=== PATIENT | female | born 1945 | race Caucasian/White ===

== ENCOUNTER 2020-10-24 15:03 | Outpatient (REF) | payer MEDICARE, SELFPAY ==
--- NOTE | ~2020-10-24 | MM_ITS ---
EXAMINATION: MM DIAGNOSTIC DIGITAL BREAST TOMOSYNTHESIS, BILATERAL US DIAGNOSTIC ULTRASOUND BREAST, RIGHT CLINICAL INFORMATION: 75-year-old with soreness and palpable nodularity posterior lateral right breast. Lumpectomy for right breast cancer 08/18/2010. Due for yearly. COMPARISON: Mammography: 06/14/2019, 06/08/2018, 05/23/2017 TECHNIQUE: Digital breast tomosynthesis is performed in both the craniocaudal and mediolateral oblique views along with computer-aided detection (CAD). Synthesized 2D images are generated from the tomosynthesis. Additional exaggerated right CC x2 views are obtained. Symptom marker placed on right. Ultrasound right breast is targeted to the area of clinical concern outer right breast. Patient is able to point to area of concern at time of imaging. FINDINGS: There are scattered areas of fibroglandular density (ACR BI-RADS breast composition Category b). There are post therapy changes right breast with mild reduced breast size, mild stable scarring, surgical clips, and benign dystrophic calcification in the scar. Neither breast shows interval mass, developing density, or architectural abnormality. No abnormal calcifications. The axilla are unremarkable. Ultrasound right breast demonstrates no cystic or solid mass or architectural abnormality. No skin thickening or edema tracking in soft tissue planes. The lumpectomy site corresponds to the area of patient concern at time of real time ultrasound. Results are discussed with the patient at time of visit. Patient notes she has upcoming appointment next week with surgeon for further assessment. MM/MM tomosynthesis diagnostic BI IMPRESSION: 1. No mammographic evidence of malignancy or inflammatory changes. 2. Stable post therapy changes right breast. 3. Unremarkable targeted right breast ultrasound. ASSESSMENT: BI-RADS 2: Benign RECOMMENDATION: 1. Patient should be managed based on the clinical impression. Decision to proceed with biopsy should be based on clinical grounds and degree of clinical concern. 2. Otherwise, routine annual screening mammography. This patient's information was entered into a reminder system with a target due date for their next mammogram.
== END 2020-10-24 15:04 | disposition home or self-care (01) ==
LOC: HO.MAMMO 15:03
PROVIDERS: PCP Internal Medicine; Visit Provider Internal Medicine
DX: N64.4 Mastodynia (principal); N63.10 Unspecified lump in the right breast, unspecified quadrant
CPT/HCPCS: 76642; 77062; 77066

== ENCOUNTER → 2020-10-28 09:46 | Outpatient (BNVA) | payer MEDICARE, SELFPAY | PROVIDERS: PCP Internal Medicine; Referring Provider Internal Medicine; Visit Provider Surgery | DX: C50.911 Malignant neoplasm of unspecified site of right female breast (principal) | CPT/HCPCS: 99212 ==

== ENCOUNTER 2021-03-11 09:41 | Outpatient (REF) | payer MEDICARE, SELFPAY ==
[2021-03-11 13:34] LABS: MANUAL DIFF FLAG NO
[2021-03-11 14:06] LABS: Basophils Absolute Auto 0.1 X10*3/uL (0.0-0.2); Basophils Percent Auto 1.4 % (0-2); Eosinophils Absolute Auto 0.2 X10*3/uL (0.0-0.4); Eosinophils Percent Auto 3.5 % (0-4); Hematocrit 45.9 % (37-47); Hemoglobin 14.8 g/dl (12.0-16.0); Imm Gran Abs Auto 0.01 X10*3/uL (0.00-0.03); Imm Gran Pct Auto 0.2 % (0.0-0.4); Lymphocytes Absolute Auto 1.5 X10*3/uL (1.2-4.9); Lymphocytes Percent Auto 29.5 % (20-40); Mean Corpuscular HGB Conc 32.2 g/dl (31.0-35.0); Mean Corpuscular Hemoglobin 29.4 pg (27.0-33.0); Mean Corpuscular Volume 91.3 fL (80-98); Mean Platelet Volume 9.9 fL (9.4-12.3); Monocytes Absolute Auto 0.6 X10*3/uL (0.1-1.2); Monocytes Percent Auto 11.9 % (2-11); Neutrophils Absolute Auto 2.7 X10*3/uL (2.0-8.3); Neutrophils Percent Auto 53.5 % (45-73); Platelet Count 235 X10*3/uL (160-400); Red Blood Count 5.03 X10*6/uL (4.20-5.50); Red Cell Distribution Width 13.5 % (11.0-16.0); White Blood Count 5.1 X10*3/uL (4.8-10.8)
[2021-03-11 14:31] LABS: Alanine Aminotransferase 10 U/L (0-31); Albumin Level 3.8 g/dL (3.5-5.0); Alkaline Phosphatase 65 U/L (39-117); Anion Gap 13 (12-20); Aspartate Amino Transferase 16 U/L (5-31); Bilirubin Total 0.6 mg/dL (0.0-1.0); Blood Urea Nitrogen 11 mg/dL (9-16); Calcium 8.4 mg/dL (8.4-10.2); Carbon Dioxide 27 mmol/L (22-29); Chloride 109 mmol/L (96-108); Cholesterol 205 mg/dL; Estimated Glomerular Filt Rate > 60; Glucose Fasting 80 mg/dL (60-99); HDL Cholesterol 73 mg/dL; LDL Cholesterol Calculated 115 mg/dl; Potassium 4.7 mmol/L (3.3-5.1); Sodium 144 mmol/L (135-145); Total Protein 6.5 g/dL (6.5-8.0); Triglycerides 89 mg/dL
== END 2021-03-11 09:42 | disposition home or self-care (01) ==
LOC: HO.10HDL 09:41
PROVIDERS: Visit Provider Internal Medicine
DX: J44.9 Chronic obstructive pulmonary disease, unspecified (principal); M85.80 Other specified disorders of bone density and structure, unspecified site; Z85.3 Personal history of malignant neoplasm of breast
CPT/HCPCS: 36415; 80053; 80061; 85025

== ENCOUNTER 2021-06-04 10:52 | Outpatient (REF) | payer MEDICARE, SELFPAY ==
--- NOTE | ~2021-06-04 | MM_ITS ---
EXAMINATION: BONE DENSITOMETRY CLINICAL INDICATION: Osteopenia. COMPARISON: Previous BD dated 11/15/2017 and baseline BD dated 10/03/2009. TECHNIQUE: Using a [employer] DXA System (software version: 13.1) manufactured by [employer], dual-energy x-ray absorptiometry was performed of the lumbar spine and left hip. The images are of good technical quality. Summary results are attached. FINDINGS: AP SPINE L1-L4: Current: BMD 0.983 g/cm2, Z-score -0.1, T-score -1.6, osteopenia, 2.8% increase from previous, 3.2% decrease from baseline (<5% change is not significant). Prior: BMD 0.956 g/cm2. Baseline: BMD 1.015 g/cm2. LEFT FEMUR, NECK: Current: BMD 0.766 g/cm2, Z-score -0.1, T-score -2.0, osteopenia. Prior: BMD 0.779 g/cm2. Baseline: BMD 0.855 g/cm2. LEFT FEMUR, TOTAL: Current: BMD 0.866 g/cm2, Z-score 0.6, T-score -1.1, osteopenia, 1.1% increase from previous, 8.6% decrease from baseline (<5% change is not significant). Prior: BMD 0.857 g/cm2. Baseline: BMD 0.947 g/cm2. IDENTIFIED RISK FACTORS: Low calcium intake, menopause. HISTORY OF FRACTURE: None listed. MEDICATIONS: Calcium supplements or multivitamin, vitamin D. MM/XR DEXA axial skeleton IMPRESSION: 1. DIAGNOSIS: Osteopenia based on the lowest T-score value of -2.0 in the femoral neck applying World Health Organization criteria. 2. 10-YEAR FRACTURE RISK PREDICTION, FRAX: Major osteoporotic fracture (clinical spine, forearm, hip or shoulder) 14.5%. Hip fracture 4.0%. 3. Treatment Recommendations: NOF guidelines recommend consideration for treatment in postmenopausal women and men age 50 and older presenting with the following: -A hip or vertebral (clinical or morphometric) fracture. -T-score less than or equal to -2.5 at the femoral neck or spine after appropriate evaluation to exclude secondary causes. -Low bone mass at the hip or spine and a 10-year fracture probability by FRAX of greater than or equal to 3% for hip fracture or greater than or equal to 20% for major osteoporotic fracture based on the [place] adapted WHO algorithm. 4. Other Recommendations: All treatment decisions require clinical judgment and consideration of individual patient factors, including patient preferences, comorbidities, previous drug use, risk factors not captured in the FRAX model (e.g. frailty, falls, vitamin D deficiency, increased bone turnover, interval significant decline in bone density) and possible under or overestimation of fracture risk by FRAX. Additional medical evaluation for secondary cause of low bone mineral density may be appropriate. FUTURE SCAN RECOMMENDATION: People with diagnosed cases of osteoporosis or at high risk for fracture should have regular bone mineral density tests. For patients eligible for Medicare, routine testing is allowed once every 2 years. The testing frequency can be increased to one year for patients who have rapidly progressing disease, those who are receiving or discontinuing medical therapy to restore bone mass, or have additional risk factors.
== END 2021-06-04 10:53 | disposition home or self-care (01) ==
LOC: HO.MAMMO 10:52
PROVIDERS: PCP Internal Medicine; Visit Provider Internal Medicine Medical Oncology
DX: Z13.820 Encounter for screening for osteoporosis (principal); M85.80 Other specified disorders of bone density and structure, unspecified site; Z78.0 Asymptomatic menopausal state; Z79.899 Other long term (current) drug therapy
CPT/HCPCS: 77080

== ENCOUNTER 2021-07-27 16:57 | Emergency (ER) | payer OTHER, MEDICARE, SELFPAY ==
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
--- NOTE | 2021-07-27 17:12 | ECG_ITS ---
Test Reason : CHEST PAIN Blood Pressure : / mmHG Vent. Rate : 088 BPM Atrial Rate : 088 BPM P-R Int : 130 ms QRS Dur : 068 ms QT Int : 368 ms P-R-T Axes : 036 -43 013 degrees QTc Int : 445 ms Normal sinus rhythm Left axis deviation Nonspecific ST abnormality Abnormal ECG When compared with ECG of 15-JUL-2011 18:40, No significant change was found Referred By: Myrna Beckwith Electronically Signed By:DANIEL FIELDS
[2021-07-27] MEDS: ondansetron HCL 4 MG/2 ML VIAL IVPUSH (18:00)
[2021-07-27 18:01] LABS: MANUAL DIFF FLAG NO
[2021-07-27] MEDS: Morphine Sulfate 2 MG/ML CARTRIDGE IVPUSH (18:01)
[2021-07-27 18:03] VITALS: BP 153/92; PULSE 90; RESP 18; O2SAT 93; BMI 27.4
[2021-07-27 18:03] LABS: Basophils Percent Auto 0.5 % (0-2); Eosinophils Absolute Auto 0.1 X10*3/uL (0.0-0.4); Eosinophils Percent Auto 1.5 % (0-4); Hematocrit 49.3 % (37.0-47.0); Hemoglobin 16.2 g/dl (12.0-16.0); Imm Gran Abs Auto 0.06 X10*3/uL (0.00-0.03); Imm Gran Pct Auto 0.7 % (0.0-0.4); Lymphocytes Absolute Auto 1.8 X10*3/uL (1.2-4.9); Lymphocytes Percent Auto 21.5 % (20-40); Mean Corpuscular HGB Conc 32.9 g/dl (31.0-35.0); Mean Corpuscular Hemoglobin 29.7 pg (27.0-33.0); Mean Corpuscular Volume 90.3 fL (80.0-98.0); Mean Platelet Volume 9.5 fL (9.4-12.3); Monocytes Absolute Auto 0.6 X10*3/uL (0.1-1.2); Monocytes Percent Auto 7.5 % (2-11); Neutrophils Absolute Auto 5.6 x10*3/uL (2.0-8.3); Neutrophils Percent Auto 68.3 % (45-73); Platelet Count 247 X10*3/uL (160-400); Red Blood Count 5.46 X10*6/uL (4.20-5.50); Red Cell Distribution Width 13.3 % (11.0-16.0); White Blood Count 8.2 X10*3/uL (4.8-10.8)
[2021-07-27 18:17] LABS: Alanine Aminotransferase 11 U/L (0-31); Albumin Level 3.9 g/dL (3.5-5.0); Alkaline Phosphatase 62 U/L (39-117); Anion Gap 12 (12-20); Aspartate Amino Transferase 19 U/L (5-31); Bilirubin Direct 0.2 mg/dL (0.0-0.5); Bilirubin Total 0.4 mg/dL (0.0-1.0); Blood Urea Nitrogen 11 mg/dL (9-16); Calcium 9.2 mg/dL (8.4-10.2); Carbon Dioxide 26 mmol/L (22-29); Chloride 108 mmol/L (96-108); Creatinine Clr Calc Pharmacy 59.5; Estimated Glomerular Filt Rate > 60; Glucose Random 104 mg/dL (60-115); Lipase 14 U/L (8-78); Magnesium 2.2 mg/dL (1.6-2.6); Sodium 142 mmol/L (135-145); Total Protein 7.3 g/dL (6.5-8.0)
[2021-07-27 18:21] LABS: Troponin-I High Sensitivity < 3.5 ng/L (<3.5-17.0)
[2021-07-27 20:13] LABS: Troponin-I High Sensitivity < 3.5 ng/L (<3.5-17.0)
[2021-07-27] MEDS: Lidocaine 4 % Patch ADH..PATCH 1 PATCH TRANSDERMA (20:24)
[2021-07-27 20:51] VITALS: BP 100/72; PULSE 40; RESP 18; O2SAT 91
[2021-07-27 20:54] VITALS: BP 83/51; PULSE 92; RESP 18
[2021-07-27 20:56] VITALS: BP 98/62; PULSE 86; RESP 18; O2SAT 96
--- NOTE | 2021-07-27 21:05 | PC.NURSE ---
upon getting pt up to the wheelchair for discharge pt felt weak and states she feels like she is going to pass out. vitals taken bp low sat dropped. 2l nc applied. pt given water and crackers due to receiving morphine earlier with last meal was breakfast.
[2021-07-27 21:07] VITALS: BP 130/76; PULSE 95; RESP 16; O2SAT 100
--- NOTE | 2021-07-27 21:10 | PC.NURSE ---
pt states she is feeling back to baseline. sat 97-99% on room air, bp 130/76 and pt chevy po crackers and gingerale.
[2021-07-27 21:14] VITALS: BP 136/84
== END 2021-07-27 21:24 | disposition home or self-care (01) ==
PROVIDERS: Emergency Provider Emergency Medicine
DX: S29.011A Strain of muscle and tendon of front wall of thorax, initial encounter (principal); V47.0XXA Car driver injured in collision with fixed or stationary object in nontraffic accident, initial encounter; W22.11XA Striking against or struck by driver side automobile airbag, initial encounter; Y93.89 Activity, other specified; Y92.414 Local residential or business street as the place of occurrence of the external cause; Y99.9 Unspecified external cause status
CPT/HCPCS: 36415; 71250; 80048; 80076; 83690; 83735; 84484; 85025; 93005; 96374; 96375; 99283; 99284; J2270; J2405

== ENCOUNTER 2021-10-26 12:09 | Outpatient (REF) | payer MEDICARE, SELFPAY ==
--- NOTE | ~2021-10-26 | US_ITS ---
EXAMINATION: US VENOUS ULTRASOUND WITH DOPPLER LOWER EXTREMITY, LEFT CLINICAL INFORMATION: Left lower extremity edema COMPARISON: Ultrasound 07/16/2011 TECHNIQUE: Ultrasound of the deep veins is performed from the hip to the calf with compression sonography and color and pulse Doppler assessment. Spectral analysis with color-flow imaging is performed. FINDINGS: There is normal venous compression and respiratory variation and augmented flow. There is partially occlusive thrombus within the left popliteal vein and possibly the distal femoral vein. The visualized common femoral vein, proximal and mid superficial femoral vein, profunda femoral vein, and the trifurcation region shows no evidence of deep venous thrombosis. There is no significant popliteal fossa cyst. If the patient's symptoms persist, followup ultrasound in 5 days 7 days might be of value to exclude proximal propagation from a non-visualized calf vein. US/US venous duplex LE LT IMPRESSION: Partially occlusive thrombus within the popliteal vein and distal portion of the superficial femoral vein. The appearance is suggestive of chronic thrombus, though it is difficult to exclude an acute thrombus. Discussed results by telephone with Dr. Corona at 1330 hours. Per our discussion the patient does have a prior history of DVT and this could certainly represent chronic changes.
[2021-10-26 13:47] LABS: MANUAL DIFF FLAG NO
[2021-10-26 14:05] LABS: Basophils Percent Auto 0.6 % (0-2); Eosinophils Absolute Auto 0.1 X10*3/uL (0.0-0.4); Eosinophils Percent Auto 1.1 % (0-4); Hematocrit 46.5 % (37.0-47.0); Imm Gran Abs Auto 0.01 X10*3/uL (0.00-0.03); Imm Gran Pct Auto 0.2 % (0.0-0.4); Lymphocytes Absolute Auto 1.4 X10*3/uL (1.2-4.9); Lymphocytes Percent Auto 25.7 % (20-40); Mean Corpuscular HGB Conc 32.3 g/dl (31.0-35.0); Mean Corpuscular Hemoglobin 29.4 pg (27.0-33.0); Mean Platelet Volume 9.3 fL (9.4-12.3); Monocytes Absolute Auto 0.5 X10*3/uL (0.1-1.2); Monocytes Percent Auto 9.6 % (2-11); Neutrophils Absolute Auto 3.4 x10*3/uL (2.0-8.3); Neutrophils Percent Auto 62.8 % (45-73); Platelet Count 237 X10*3/uL (160-400); Red Blood Count 5.11 X10*6/uL (4.20-5.50); Red Cell Distribution Width 13.7 % (11.0-16.0); White Blood Count 5.4 X10*3/uL (4.8-10.8)
[2021-10-26 14:31] LABS: B Type Natriuretic Peptide 21 pg/mL (<100); D Dimer High Sensitivity 185 NG/ML
[2021-10-26 14:41] LABS: Alanine Aminotransferase 12 U/L (0-31); Albumin Level 3.9 g/dL (3.5-5.0); Alkaline Phosphatase 59 U/L (39-117); Anion Gap 12 (12-20); Aspartate Amino Transferase 20 U/L (5-31); Bilirubin Total 0.6 mg/dL (0.0-1.0); Blood Urea Nitrogen 14 mg/dL (9-16); C Reactive Protein 0.21 mg/dL (< or = 0.50); Calcium 9.7 mg/dL (8.4-10.2); Carbon Dioxide 26 mmol/L (22-29); Chloride 109 mmol/L (96-108); Estimated Glomerular Filt Rate 58; Glucose Random 93 mg/dL (60-115); Sodium 142 mmol/L (135-145); Total Protein 6.9 g/dL (6.5-8.0)
== END 2021-10-26 12:10 | disposition home or self-care (01) ==
LOC: HO.LAB 12:09
PROVIDERS: Visit Provider Internal Medicine
DX: R22.41 Localized swelling, mass and lump, right lower limb (principal); R06.02 Shortness of breath
CPT/HCPCS: 36415; 80053; 83880; 85025; 85379; 86140; 93971

== ENCOUNTER 2021-11-02 16:10 | Outpatient (REF) | payer MEDICARE, SELFPAY ==
--- NOTE | ~2021-11-02 | MM_ITS ---
EXAMINATION: MM SCREENING DIGITAL BREAST TOMOSYNTHESIS, BILATERAL CLINICAL INFORMATION: Screening. Asymptomatic. History right breast cancer status post lumpectomy, 08/18/2010. Due for yearly. COMPARISON: Mammography: 10/24/2020, 06/14/2019, 06/08/2018, 05/23/2017, 05/17/2016, 05/15/2015 TECHNIQUE: Digital breast tomosynthesis is performed in both the craniocaudal and mediolateral oblique views along with computer-aided detection (CAD). Synthesized 2D images are generated from the tomosynthesis. Additional exaggerated right CC view is provided. FINDINGS: There are scattered areas of fibroglandular density (ACR BI-RADS breast composition Category b). Right breast post therapy changes are again seen with mild reduced breast size and old scarring, surgical clips, and benign dystrophic calcification in the scar posterior upper outer quadrant. Neither breast shows interval mass or architectural abnormality or abnormal calcifications. The axilla are unremarkable. No significant changes. MM/MM tomosynthesis screening BI IMPRESSION: -No mammographic evidence of malignancy. -Post therapy changes right breast. ASSESSMENT: BI-RADS 2: Benign RECOMMENDATION: Routine annual mammography screening. This patient's information was entered into a reminder system with a target due date for their next mammogram.
== END 2021-11-02 16:11 | disposition home or self-care (01) ==
LOC: HO.MAMMO 16:10
PROVIDERS: Visit Provider Internal Medicine
DX: Z12.31 Encounter for screening mammogram for malignant neoplasm of breast (principal)
CPT/HCPCS: 77063; 77067

== ENCOUNTER → 2021-12-03 08:54 | Outpatient (BNVA) | payer MEDICARE, SELFPAY | PROVIDERS: PCP Internal Medicine; Visit Provider Surgery | DX: C50.911 Malignant neoplasm of unspecified site of right female breast (principal); Z79.811 Long term (current) use of aromatase inhibitors; Z17.0 Estrogen receptor positive status [ER+]; Z86.711 Personal history of pulmonary embolism | CPT/HCPCS: 99212 ==

== ENCOUNTER 2021-12-10 07:41 | Outpatient (REF) | payer MEDICARE, SELFPAY ==
--- NOTE | 2021-12-10 | PFT_ITS ---
INDICATION: History of pulmonary emboli. SPIROMETRY: FEV1 to FVC of 62% with an FEV1 of 1.99 L, which is 88% predicted and an FVC of 3.22 L, which is 107% predicted. No significant response to bronchodilators noted. Maximum voluntary ventilation 75% predicted. LUNG VOLUMES: Total lung capacity 103% predicted. DIFFUSION CAPACITY: DLCO 36% predicted. COMPARISONS: None. INTERPRETATION: There is an obstructive ventilatory defect consistent with mild COPD. No significant response to bronchodilators noted. There is some mild decrease in the maximum voluntary ventilation secondary to likely deconditioning. Lung volumes are within normal limits, although the patient does have severe diffusion impairment. This could be secondary to underlying pulmonary vascular disease after the pulmonary emboli, although other parenchymal lung conditions such as emphysema may be contributing. Clinical correlation warranted. MD TWYLA Tesfaye/[employer] / [id number]
== END 2021-12-10 07:42 | disposition home or self-care (01) ==
LOC: HO.RESP 07:41
PROVIDERS: PCP Internal Medicine; Visit Provider Internal Medicine
DX: Z86.711 Personal history of pulmonary embolism (principal); Z87.891 Personal history of nicotine dependence
CPT/HCPCS: 94060; 94727; 94729

== ENCOUNTER → 2022-02-08 13:47 | Outpatient (BNVA) | payer MEDICARE, SELFPAY | PROVIDERS: PCP Internal Medicine; Visit Provider Hospitalist | DX: J43.2 Centrilobular emphysema (principal); R91.8 Other nonspecific abnormal finding of lung field; R06.00 Dyspnea, unspecified; R09.02 Hypoxemia | CPT/HCPCS: 94618; 99202 ==

== ENCOUNTER → 2022-04-29 10:40 | Outpatient (BNV) | payer MEDICARE, SELFPAY | PROVIDERS: PCP Internal Medicine; Visit Provider Internal Medicine Medical Oncology | DX: Z85.3 Personal history of malignant neoplasm of breast (principal) | CPT/HCPCS: 99213; 99214 ==

== ENCOUNTER → 2022-05-11 13:12 | Outpatient (BNVA) | payer MEDICARE, SELFPAY | PROVIDERS: PCP Internal Medicine; Visit Provider Hospitalist | DX: Z23 Encounter for immunization (principal); J43.2 Centrilobular emphysema; R91.8 Other nonspecific abnormal finding of lung field; R06.00 Dyspnea, unspecified; R09.02 Hypoxemia | CPT/HCPCS: 90471; 90677; 99212 ==

== ENCOUNTER 2022-05-17 11:39 | Outpatient (REF) | payer MEDICARE, SELFPAY ==
[2022-05-17 13:53] LABS: MANUAL DIFF FLAG NO
[2022-05-17 14:02] LABS: Basophils Absolute Auto 0.1 X10*3/uL (0.0-0.2); Eosinophils Absolute Auto 0.2 X10*3/uL (0.0-0.4); Eosinophils Percent Auto 2.6 % (0-4); Hematocrit 46.7 % (37.0-47.0); Imm Gran Abs Auto 0.03 X10*3/uL (0.00-0.03); Imm Gran Pct Auto 0.5 % (0.0-0.4); Lymphocytes Absolute Auto 1.5 X10*3/uL (1.2-4.9); Lymphocytes Percent Auto 24.8 % (20-40); Mean Corpuscular HGB Conc 32.1 g/dl (31.0-35.0); Mean Corpuscular Hemoglobin 29.4 pg (27.0-33.0); Mean Corpuscular Volume 91.6 fL (80.0-98.0); Mean Platelet Volume 10.3 fL (9.4-12.3); Monocytes Absolute Auto 0.7 X10*3/uL (0.1-1.2); Monocytes Percent Auto 11.8 % (2-11); Neutrophils Absolute Auto 3.5 x10*3/uL (2.0-8.3); Neutrophils Percent Auto 59.3 % (45-73); Platelet Count 248 X10*3/uL (160-400); Red Cell Distribution Width 13.4 % (11.0-16.0); White Blood Count 5.8 X10*3/uL (4.8-10.8)
[2022-05-17 14:31] LABS: Alanine Aminotransferase 14 U/L (0-31); Albumin Level 3.8 g/dL (3.5-5.0); Alkaline Phosphatase 62 U/L (39-117); Anion Gap 11 (12-20); Aspartate Amino Transferase 21 U/L (5-31); Bilirubin Total 0.6 mg/dL (0.0-1.0); Blood Urea Nitrogen 15 mg/dL (9-16); Calcium 9.6 mg/dL (8.4-10.2); Carbon Dioxide 29 mmol/L (22-29); Chloride 105 mmol/L (96-108); Cholesterol 196 mg/dL; Estimated Glomerular Filt Rate > 60; Glucose Fasting 84 mg/dL (60-99); HDL Cholesterol 67 mg/dL; LDL Cholesterol Calculated 109 mg/dl; Potassium 4.5 mmol/L (3.3-5.1); Sodium 140 mmol/L (135-145); Total Protein 6.8 g/dL (6.5-8.0); Triglycerides 102 mg/dL
== END 2022-05-17 11:40 | disposition home or self-care (01) ==
LOC: HO.10HDL 11:39
PROVIDERS: Visit Provider Internal Medicine
DX: Z00.00 Encounter for general adult medical examination without abnormal findings (principal)
CPT/HCPCS: 36415; 80053; 80061; 85025

== ENCOUNTER → 2022-09-01 11:01 | Outpatient (BNVA) | payer MEDICARE, SELFPAY | PROVIDERS: PCP Internal Medicine; Visit Provider Hospitalist | DX: J43.2 Centrilobular emphysema (principal); R91.8 Other nonspecific abnormal finding of lung field; R06.00 Dyspnea, unspecified; R09.02 Hypoxemia | CPT/HCPCS: 99212 ==

== ENCOUNTER 2022-09-15 07:47 | Outpatient (REF) | payer MEDICARE, SELFPAY ==
--- NOTE | ~2022-09-15 | CT_ITS ---
EXAMINATION: CT CHEST WITHOUT CONTRAST CLINICAL INFORMATION: Pulmonary nodule COMPARISON: 07/27/2021 TECHNIQUE: Multidetector volumetric CT imaging of the chest was done. Axial MIP volume rendering provided. Sagittal and coronal reformatted images were obtained. This CT examination was performed using dose optimization techniques as appropriate, variously including the following: *Automated exposure control *Adjustment of mA and/or kV according to patient size (this includes techniques or standardized protocols for targeted exams where dose is matched to indication/reason for exam; i.e. extremities or head) *Use of iterative reconstruction technique DLP: 121.63 mGy-cm FINDINGS: LUNGS: Moderate background emphysema. Right lower lobe endobronchial 4 mm nodule is unchanged (5:503). Central airways are patent. No new or enlarging pulmonary nodule. Bilateral calcified nodules are unchanged. MEDIASTINUM: No mediastinal adenopathy. Lack of IV contrast as well as for hilar adenopathy. PLEURA: There is no pleural effusion. No pleural mass or thickening. AXILLA: No lymphadenopathy. UPPER ABDOMEN: Partially visualized benign-appearing left renal cyst. OSSEOUS STRUCTURES/SOFT TISSUES: Degenerative changes of the spine. Postsurgical changes of the right breast consistent with prior lumpectomy. CT/CT chest wo IV con IMPRESSION: Right lower lobe endobronchial 4 mm nodule is unchanged. No new or enlarging pulmonary nodule. Follow-up per oncologic protocol given breast cancer history.
== END 2022-09-15 07:48 | disposition home or self-care (01) ==
LOC: HO.CT 07:47
PROVIDERS: Visit Provider Hospitalist
DX: R91.8 Other nonspecific abnormal finding of lung field (principal)
CPT/HCPCS: 71250

== ENCOUNTER 2022-11-15 12:29 | Outpatient (REF) | payer MEDICARE, SELFPAY ==
--- NOTE | ~2022-11-15 | MM_ITS ---
EXAMINATION: MM SCREENING DIGITAL BREAST TOMOSYNTHESIS, BILATERAL CLINICAL INFORMATION: Screening. Asymptomatic. History right breast cancer status post lumpectomy, 2010. COMPARISON: Mammography: 11/02/2021, 10/24/2020, 06/14/2019 TECHNIQUE: Digital breast tomosynthesis is performed in both the craniocaudal and mediolateral oblique views along with computer-aided detection (CAD). Synthesized 2D images are generated from the tomosynthesis. FINDINGS: There are scattered areas of fibroglandular density (ACR BI-RADS breast composition Category b). There are no significant masses, abnormal calcifications, or other abnormalities. Parenchymal pattern is similar to prior studies and there is no developing density or interval architectural abnormality. The axilla are unremarkable. Right breast post therapy changes are similar to prior studies with reduced breast size, surgical clips, scarring, and benign dystrophic calcification. MM/MM tomosynthesis screening BI IMPRESSION: No mammographic evidence of malignancy. ASSESSMENT: BI-RADS 2: Benign RECOMMENDATION: Routine annual mammography screening. This patient's information was entered into a reminder system with a target due date for their next mammogram.
== END 2022-11-15 12:30 | disposition home or self-care (01) ==
LOC: HO.MAMMO 12:29
PROVIDERS: PCP Internal Medicine; Visit Provider Internal Medicine
DX: Z12.31 Encounter for screening mammogram for malignant neoplasm of breast (principal)
CPT/HCPCS: 77063; 77067

== ENCOUNTER → 2022-12-02 10:37 | Outpatient (BNVA) | payer MEDICARE, SELFPAY | PROVIDERS: PCP Internal Medicine; Visit Provider Surgery | DX: C50.911 Malignant neoplasm of unspecified site of right female breast (principal) | CPT/HCPCS: 99212 ==

== ENCOUNTER 2022-12-20 12:32 | Outpatient (REF) | payer MEDICARE, SELFPAY ==
--- NOTE | ~2022-12-20 | XR_ITS ---
EXAMINATION: XR SINUSES CLINICAL INFORMATION: Headache, sinus congestion COMPARISON: None available. TECHNIQUE: 5 views of the sinuses were obtained. FINDINGS: No gross air-fluid levels identified in the maxillary and frontal sinuses.. Leftward deviation of the nasal septum. Hazy opacities in the region of the nasal turbinates and ethmoid. XR/XR sinus min 3V IMPRESSION: Hazy opacities in the region of the nasal turbinates and ethmoid. CT scan of the paranasal sinuses is strongly recommended as this examination is much more sensitive for detection of pathology.
--- NOTE | ~2022-12-20 | XR_ITS ---
EXAMINATION: XR CHEST CLINICAL INFORMATION: Chest pain COMPARISON: CT chest 09/15/2022. X-ray chest 11/22/2008. TECHNIQUE: 2 views of the chest were obtained. FINDINGS: There is no gross pneumothorax. Heart size is normal. Lungs are well-inflated. No pleural effusion. No new focal consolidation to suggest pneumonia. Thoracic kyphosis with multilevel degenerative changes. XR/XR chest 2V IMPRESSION: No evidence of pneumonia.
[2022-12-20 14:06] LABS: MANUAL DIFF FLAG NO
[2022-12-20 14:14] LABS: Basophils Absolute Auto 0.1 X10*3/uL (0.0-0.2); Basophils Percent Auto 0.6 % (0-2); Eosinophils Absolute Auto 0.4 X10*3/uL (0.0-0.4); Eosinophils Percent Auto 3.8 % (0-4); Hematocrit 46.1 % (37.0-47.0); Hemoglobin 14.9 g/dl (12.0-16.0); Imm Gran Abs Auto 0.05 X10*3/uL (0.00-0.03); Imm Gran Pct Auto 0.5 % (0.0-0.4); Lymphocytes Absolute Auto 1.3 X10*3/uL (1.2-4.9); Lymphocytes Percent Auto 12.1 % (20-40); Mean Corpuscular HGB Conc 32.3 g/dl (31.0-35.0); Mean Corpuscular Hemoglobin 29.2 pg (27.0-33.0); Mean Corpuscular Volume 90.2 fL (80.0-98.0); Mean Platelet Volume 9.9 fL (9.4-12.3); Monocytes Absolute Auto 1.1 X10*3/uL (0.1-1.2); Monocytes Percent Auto 10.2 % (2-11); Neutrophils Absolute Auto 7.6 x10*3/uL (2.0-8.3); Neutrophils Percent Auto 72.8 % (45-73); Platelet Count 213 X10*3/uL (160-400); Red Blood Count 5.11 X10*6/uL (4.20-5.50); Red Cell Distribution Width 13.7 % (11.0-16.0); White Blood Count 10.5 X10*3/uL (4.8-10.8)
[2022-12-20 14:35] LABS: Alanine Aminotransferase 10 U/L (0-31); Albumin Level 3.8 g/dL (3.5-5.0); Alkaline Phosphatase 60 U/L (39-117); Anion Gap 13 (12-20); Aspartate Amino Transferase 16 U/L (5-31); Bilirubin Total 0.6 mg/dL (0.0-1.0); Blood Urea Nitrogen 13 mg/dL (9-16); C Reactive Protein 1.96 mg/dL (< or = 0.50); Calcium 9.7 mg/dL (8.4-10.2); Carbon Dioxide 25 mmol/L (22-29); Chloride 107 mmol/L (96-108); Estimated Glomerular Filt Rate > 60; Glucose Random 98 mg/dL (60-115); Potassium 3.7 mmol/L (3.3-5.1); Sodium 141 mmol/L (135-145)
[2022-12-20 14:53] LABS: Free T4 (Free Thyroxine) 0.98 ng/dL (0.71-1.85)
[2022-12-20 15:02] LABS: Erythrocyte Sedimentation Rate 10 MM/HR (0-20)
== END 2022-12-20 12:33 | disposition home or self-care (01) ==
LOC: HO.10HDL 12:32
PROVIDERS: PCP Internal Medicine; Visit Provider Internal Medicine
DX: R51.9 Headache, unspecified (principal); R09.81 Nasal congestion; J44.9 Chronic obstructive pulmonary disease, unspecified; R00.0 Tachycardia, unspecified; M54.2 Cervicalgia
CPT/HCPCS: 36415; 70220; 71046; 80053; 84439; 85025; 85652; 86140

== ENCOUNTER 2022-12-22 16:09 | Emergency (ER) | payer MEDICARE, SELFPAY ==
--- NOTE | ~2022-12-22 | CT_ITS ---
EXAMINATION: CT ANGIOGRAM OF THE CHEST WITH AND WITHOUT CONTRAST (CT PULMONARY ANGIOGRAM FOR PE) CLINICAL INFORMATION: Reason for Exam SOB, tachycardia, hx PE COMPARISON: None available. TECHNIQUE: Prior to contrast administration, noncontrast localization images were obtained. Subsequently, multidetector volumetric imaging was performed from the thoracic inlet to below the diaphragms following the administration of 80 mL Omnipaque 350 intravenous contrast. No contrast reaction reported Sagittal, coronal, and MIP oblique sagittal reformatted images were obtained on the CT workstation, uploaded to PACS, and reviewed. This CT examination was performed using dose optimization techniques as appropriate, variously including the following: *Automated exposure control *Adjustment of mA and/or kV according to patient size (this includes techniques or standardized protocols for targeted exams where dose is matched to indication/reason for exam; i.e. extremities or head) *Use of iterative reconstruction technique Total exam dose-length product 237 mGy-cm FINDINGS: QUALITY OF STUDY/CONTRAST BOLUS: Satisfactory. PULMONARY ARTERIES: No pulmonary emboli. THORACIC AORTA: No aneurysm. LUNG: The lungs are hyperinflated with patchy opacity left lower lobe superior segment question infiltrate. There is dependent atelectatic changes along the posterior basal segment of left lower lobe. No pulmonary nodule, mass or groundglass density seen.. PLEURA: Minimal left posterior pleural thickening seen. No pleural effusion or calcified pleural plaques. MEDIASTINUM: Normal heart size. No pericardial effusion. No hilar or mediastinal lymphadenopathy. No evidence of septal bowing or right heart strain. CORONARY ARTERY CALCIFICATION: Mild coronary artery calcifications are noted. CHEST WALL/AXILLA: No axillary or internal mammary lymphadenopathy. OSSEOUS STRUCTURES: There is normal thoracic kyphosis. The vertebral heights, alignment and disc heights are normal. No visible acute fracture, dislocation or subluxation seen. There is mild ventral spondylosis. There is sclerotic lesion density T3 vertebra likely bone island. UPPER ABDOMEN: Visualized liver, spleen, pancreas and bilateral adrenal glands are unremarkable. There is a left reginald pelvic cyst seen. Partially visualized gallbladder and the pancreas is unremarkable. No reflux of contrast into the hepatic veins to suggest elevated right heart pressures. CT/CT angio chest PE protocol IMPRESSION: 1. No evidence of PE. 2. No evidence of aortic aneurysm. 3. Hyperinflated lungs with patchy opacity left lower lobe superior segment question infiltrate. 4. VTE: negative.
--- NOTE | ~2022-12-22 | XR_ITS ---
EXAMINATION: XR CHEST CLINICAL INFORMATION: Dyspnea. COMPARISON: 12/20/2022 chest radiographs. TECHNIQUE: 2 views of the chest were obtained. FINDINGS: The lungs are clear. There are no pleural effusions. The heart and mediastinal structures are unremarkable. Increased thoracic kyphosis is seen with normal spinal alignment. The soft tissues are unremarkable. XR/XR chest 2V IMPRESSION: No acute cardiopulmonary process.
[2022-12-22 16:12] VITALS: BP 196/98; PULSE 120; RESP 18; TEMP 36.8; O2SAT 96; BMI 26.9
--- NOTE | 2022-12-22 16:13 | ED.GENADULT ---
HPI - General Adult General Chief complaint: General Medical Stated complaint: Sent by Doc. Time Seen by Provider: 12/22/22 17:18 Source: patient Mode of arrival: ambulatory History of Present Illness HPI narrative: This is a 77-year-old female who presents with a remote history of PE that was attributed to her use of tamoxifen for breast CA, she is also currently being treated with inhalers for chronic lung disease and a remote history of cigarette smoking and states that since Tuesday she has been experiencing a rapid heart rate that she identified because she checks her oxygenation throughout the day and also reports some shortness of breath and headache and an overall feeling of being unwell but denies any fever, chills, new cough, GI or symptoms. Related Data Home Medications Medication Instructions Recorded Confirmed calcium carbonate 500 mg-vitamin 1 tab PO DAILY 04/29/22 12/02/22 D3 3.125 mcg (125 unit) tablet Previous Rx's Medication Instructions Recorded umeclidinium 62.5 mcg-vilanterol 1 inh inhalation DAILY #60 ea 09/01/22 25 mcg/actuation powdr for inhalation (Anoro Ellipta) amoxicillin 875 mg-potassium 1 tab PO BID 7 days #14 tabs 12/22/22 clavulanate 125 mg tablet prednisone 50 mg tablet 50 mg PO DAILY 4 days #4 tabs 12/22/22 Allergies Allergy/AdvReac Type Severity Reaction Status Date / Time No Known Allergies Allergy Verified 12/22/22 16:16 Review of Systems Review of Systems: Pertinent positives and negatives as stated in HPI PMFSH Past Medical History Source: nursing notes reviewed Medical History Cataracts, bilateral COPD (chronic obstructive pulmonary disease) Dyspnea Hypoxia Invasive ductal carcinoma of right breast, stage 1 Pulmonary embolism Pulmonary nodules Retinal tear Surgical History History of eye surgery History of lumpectomy of right breast (07/2010) History of repair of retinal tear by laser photocoagulation Family History Family History Father No problems noted. Mother No problems noted. Paternal Aunt Lung cancer Maternal Uncle Lung cancer Maternal Aunt Lung cancer Son Colon cancer Social History Social History Household Members: None Housing: House Are you a primary coronary care unit nurse to a significant other at home: No Do you presently have visiting nurse or other home services: No Patient Tobacco Use Status: Former Tobacco user Tobacco use type: Cigarette Years Smoked: 25 Smoked in Last 30 Days: No Second Hand Smoke Exposure: No Use of substances other than those prescribed or required for medical reasons: No Advance Directives: Yes Advance Directives Information Provided: No Advance Directives on File: No service: No Current occupational status: retired Physical Exam ED Vital Signs: Vital Signs - 24 hr 12/22/22 16:12 12/22/22 17:10 12/22/22 18:52 Temperature 98.3 F 98.6 F 98.1 F Pulse Rate 120 H 107 H 95 Respiratory Rate 18 18 23 H Blood Pressure 196/98 H 150/97 H 154/88 H Pulse Oximetry 96 94 92 Oxygen Delivery Method Room Air Room Air Room Air 12/22/22 19:37 12/22/22 21:06 12/22/22 21:22 Temperature 98.1 F Pulse Rate 97 100 95 Respiratory Rate 16 17 18 Blood Pressure 135/76 130/74 Pulse Oximetry 95 95 Oxygen Delivery Method Room Air Room Air BMI result Body Mass Index 26.9 VITAL SIGNS: Reviewed. GENERAL: Well developed, well nourished, in no acute distress. HEAD: Normocephalic/atraumatic EYES: PERRLA, EOMI EARS: Ext canals without abnormality NOSE: Nares patent bilateral OROPHARYNX: no oral lesions noted, posterior pharynx clear NECK: Supple, no adenopathy LUNGS: Normal breath sounds. No adventitious sounds or accessory muscle use. SpO2<94> CARDIOVASCULAR: Sinus tachycardia and rhythm without noted murmurs, no JVD or lower extremity edema. ABDOMEN: Soft, non-tender, non-distended with bowel sounds. MUSCULOSKELETAL: No tenderness, deformities, or effusions noted on gross inspection. EXTREMITIES: No cyanosis, clubbing or edema. SKIN: Inspection of the skin reveals no rashes NEUROLOGIC: Alert and oriented x 4. Strength and sensation to light touch were grossly intact x 4. Course Course Course Narrative: RME: 77yo F w/PMHx COPD, PE, sent in from Dr. Anderson c/o generalized weakness, exertional dyspnea, palpitations, & elevated HR noted today in the office [employer] ranging 115-120's. Denies currently being on AC. keo CP Was seen in Dr. Pak office on Tuesday for HUGHES's, has sinus and CXR completed EKG, Labs, CXR Full HPI, ROS and PE to be performed by primary ED provider. Medications Administered Discontinued Medications Generic Name Dose Route Start Last Admin Trade Name Ady PRN Reason Stop Dose Admin Acetaminophen 975 mg 12/22/22 18:44 12/22/22 18:51 Acetaminophen 325 Mg Tablet PO 12/22/22 18:45 975 mg ONCE ONE Administration Albuterol/Ipratropium 3 ml 12/22/22 19:23 12/22/22 19:36 Albuterol/Iprat 2.5/0.5mg 3 Ml Ampul.Neb INHALE 12/22/22 19:24 3 ml ONCE ONE Administration Ibuprofen 400 mg 12/22/22 18:44 12/22/22 18:50 Ibuprofen 400 Mg Tablet PO 12/22/22 18:45 400 mg ONCE ONE Administration Iohexol 100 ml 12/22/22 20:28 12/22/22 20:28 Iohexol 350 Mg/Ml 100 Ml Infus..Btl IV 12/22/22 20:29 65 ml ONCE ONE Administration Methylprednisolone Sodium Succinate 125 mg 12/22/22 19:23 12/22/22 20:10 Methylprednisolone Sod Succ 125 Mg/2 Ml Vial IVPUSH 12/22/22 19:24 125 mg ONCE ONE Administration Medical Decision Making Medical Decision Making MDM Narrative: 77-year-old female with history and clinical presentation suggestive after review of investigations of possible exacerbation of underlying chronic lung disease especially as there is a noted elevation eosinophils but no bump in leukocytosis or left shift, also findings are not consistent with a pneumonia, COVID-19 testing was negative, EKG demonstrates sinus tachycardia with PACs which is not consistent with irregular rhythm arrhythmia. Will pursue D-dimer to rule out PE at this time due to remote history although felt to be very low possibility. I do not suspect cardiac ischemia as an etiology which is further corroborated by no evidence of troponin elevation and again no obvious or gross ischemic changes. Patient is otherwise not tachypneic and not febrile. On review of D-dimer it is noted to be elevated, patient continues to be tachycardic, will proceed with CT angio with PE protocol, also will treat patient with a DuoNeb as well as Solu-Medrol. On re-evaluation, D-dimers noted to be elevated, however CT angio for PE protocol negative for evidence of PE, patient is feeling better, will continue patient on short course of steroids as I suspect this may be in part due to her underlying chronic lung disease. In addition on the CT angio there was identification of lower lobe opacity suggestive of infiltrate and she will be discharged on a course of antibiotics. Patient states that she is feeling better and is ready to go home. Differential Diagnosis Please see the discussion above Admission/Observation Consideration of admission/observation: Escalation of care including admission/observation considered Lab Data Please see the discussion above 12/22/22 16:56 12/22/22 16:56 Labs: Lab Results 12/22/22 12/22/22 12/22/22 Range/Units 16:56 16:56 16:56 WBC 9.6 (4.8-10.8) X10*3/uL RBC 5.34 (4.20-5.50) X10*6/uL Hgb 15.6 (12.0-16.0) g/dl Hct 47.9 H (37.0-47.0) % MCV 89.7 (80.0-98.0) fL MCH 29.2 (27.0-33.0) pg MCHC 32.6 (31.0-35.0) g/dl RDW 13.7 (11.0-16.0) % Plt Count 249 (160-400) X10*3/uL MPV 9.4 (9.4-12.3) fL Immature Gran % (Auto) 0.4 (0.0-0.4) % Neut % (Auto) 69.8 (45-73) % Lymph % (Auto) 12.5 L (20-40) % [place] % (Auto) 11.2 H (2-11) % Eos % (Auto) 5.4 H (0-4) % Baso % (Auto) 0.7 (0-2) % Lymph # (Auto) 1.2 (1.2-4.9) X10*3/uL [place] # (Auto) 1.1 (0.1-1.2) X10*3/uL Eos # (Auto) 0.5 H (0.0-0.4) X10*3/uL Baso # (Auto) 0.1 (0.0-0.2) X10*3/uL Abs Immat Gran (auto) 0.04 H (0.00-0.03) X10*3/uL Absolute Neuts (auto) 6.7 (2.0-8.3) x10*3/uL Absolute Nucleated RBC 0.000 (0.0-0.012) X10*3/uL Nucleated RBC % (auto) 0.0 (0.0-0.2) /100WBC PT 11.4 (10.0-13.1) SEC INR 1.0 (0.9-1.1) D-Dimer High Sensitivty 482 NG/ML Sodium 135 (135-145) mmol/L Potassium 4.2 (3.3-5.1) mmol/L Chloride 105 (96-108) mmol/L Carbon Dioxide 23 (22-29) mmol/L Anion Gap 11 L (12-20) BUN 14 (9-16) mg/dL Creatinine 0.87 (0.5-1.4) mg/dL Estim Creat Clear Calc 56.4 Estimated GFR > 60 Random Glucose 102 (60-115) mg/dL Calcium 9.5 (8.4-10.2) mg/dL Magnesium 2.0 (1.6-2.6) mg/dL Total Bilirubin 0.6 (0.0-1.0) mg/dL Direct Bilirubin 0.2 (0.0-0.5) mg/dL AST 15 (5-31) U/L ALT 8 (0-31) U/L Alkaline Phosphatase 55 (39-117) U/L Troponin I High Sens (<3.5-17.0) ng/L B-Natriuretic Peptide (<100) pg/mL Total Protein 7.4 (6.5-8.0) g/dL Albumin 3.7 (3.5-5.0) g/dL TSH 1.55 (0.32-4.0) uIU/mL COVID-19 (PERLA) (Negative) COVID-19 Clin Com 12/22/22 12/22/22 12/22/22 Range/Units 16:56 16:56 17:55 WBC (4.8-10.8) X10*3/uL RBC (4.20-5.50) X10*6/uL Hgb (12.0-16.0) g/dl Hct (37.0-47.0) % MCV (80.0-98.0) fL MCH (27.0-33.0) pg MCHC (31.0-35.0) g/dl RDW (11.0-16.0) % Plt Count (160-400) X10*3/uL MPV (9.4-12.3) fL Immature Gran % (Auto) (0.0-0.4) % Neut % (Auto) (45-73) % Lymph % (Auto) (20-40) % [place] % (Auto) (2-11) % Eos % (Auto) (0-4) % Baso % (Auto) (0-2) % Lymph # (Auto) (1.2-4.9) X10*3/uL [place] # (Auto) (0.1-1.2) X10*3/uL Eos # (Auto) (0.0-0.4) X10*3/uL Baso # (Auto) (0.0-0.2) X10*3/uL Abs Immat Gran (auto) (0.00-0.03) X10*3/uL Absolute Neuts (auto) (2.0-8.3) x10*3/uL Absolute Nucleated RBC (0.0-0.012) X10*3/uL Nucleated RBC % (auto) (0.0-0.2) /100WBC PT (10.0-13.1) SEC INR (0.9-1.1) D-Dimer High Sensitivty NG/ML Sodium (135-145) mmol/L Potassium (3.3-5.1) mmol/L Chloride (96-108) mmol/L Carbon Dioxide (22-29) mmol/L Anion Gap (12-20) BUN (9-16) mg/dL Creatinine (0.5-1.4) mg/dL Estim Creat Clear Calc Estimated GFR Random Glucose (60-115) mg/dL Calcium (8.4-10.2) mg/dL Magnesium (1.6-2.6) mg/dL Total Bilirubin (0.0-1.0) mg/dL Direct Bilirubin (0.0-0.5) mg/dL AST (5-31) U/L ALT (0-31) U/L Alkaline Phosphatase (39-117) U/L Troponin I High Sens < 2.7 (<3.5-17.0) ng/L B-Natriuretic Peptide 15 (<100) pg/mL Total Protein (6.5-8.0) g/dL Albumin (3.5-5.0) g/dL TSH (0.32-4.0) uIU/mL COVID-19 (PERLA) Negative (Negative) COVID-19 Clin Com See Note Independent Interpretation I performed an independent interpretation of an: EKG Interpretation: Sinus tachycardia, HR-115, no STEMI, MN/QRS/QTC is within normal limits. Radiology Impression Radiologist Impression: No pneumonia on chest x-ray, discussion of CT angio findings above. External Record Review External record reviewed: Prior outpatient labs Chronic Conditions Patient?s care impacted by: Hypertension Discharge Plan Discharge Clinical Impression: COPD (chronic obstructive pulmonary disease), Pneumonia Patient Disposition: Home, Self-Care Instructions: COPD (Chronic Obstructive Pulmonary Disease) (ED), Pneumonia (ED) Additional Instructions: 1. Resume all home medications as prescribed. 2. Complete the short course of steroids as prescribed. I highly recommend using [id number]-[id number] acid control medication as the steroids will increased acid production. 3. Please complete the entire course of antibiotics as ordered. 4. Most importantly please follow-up with primary care provider within the next 1-2 days. Return to the ER for any worsening symptoms. Prescriptions: New amoxicillin-pot clavulanate 875-125 mg tablet 1 tab PO BID 7 Days Qty: 14 0RF prednisone 50 mg tablet 50 mg PO DAILY 4 Days Qty: 4 0RF No Action calcium carbonate-vitamin D3 [Calcium 500 + D (D3)] 500 mg-3.125 mcg (125 unit) Tablet 1 tab PO DAILY Anoro Ellipta 62.5-25 mcg/actuation blister with device 1 inh inhalation DAILY Qty: 60 11RF Referrals: Genaro Anderson MD [Primary Care Provider] - Interventions: ED Discharge Assessment Last Done: 12/22/22 21:03
--- NOTE | 2022-12-22 16:14 | ECG_ITS ---
Test Reason : tacardya Blood Pressure : / mmHG Vent. Rate : 115 BPM Atrial Rate : 115 BPM P-R Int : 124 ms QRS Dur : 068 ms QT Int : 322 ms P-R-T Axes : 049 -33 042 degrees QTc Int : 445 ms Sinus tachycardia with Premature supraventricular complexes Left axis deviation Abnormal ECG When compared with ECG of 27-JUL-2021 19:28, Premature supraventricular complexes are now Present Referred By: Blanche Guaman Electronically Signed By:Nathanael Abbott
--- NOTE | 2022-12-22 16:52 | MHC.EDTECH ---
PATIENT EKG TAKEN AND WAS READ BY PROVIDER .
--- NOTE | 2022-12-22 17:00 | MHC.EDTECH ---
PATIENT BLOOD DRAWN AND SENT TO LAB .
[2022-12-22 17:02] LABS: MANUAL DIFF FLAG NO
[2022-12-22 17:07] LABS: Basophils Absolute Auto 0.1 X10*3/uL (0.0-0.2); Basophils Percent Auto 0.7 % (0-2); Eosinophils Absolute Auto 0.5 X10*3/uL (0.0-0.4); Eosinophils Percent Auto 5.4 % (0-4); Hematocrit 47.9 % (37.0-47.0); Hemoglobin 15.6 g/dl (12.0-16.0); Imm Gran Abs Auto 0.04 X10*3/uL (0.00-0.03); Imm Gran Pct Auto 0.4 % (0.0-0.4); Lymphocytes Absolute Auto 1.2 X10*3/uL (1.2-4.9); Lymphocytes Percent Auto 12.5 % (20-40); Mean Corpuscular HGB Conc 32.6 g/dl (31.0-35.0); Mean Corpuscular Hemoglobin 29.2 pg (27.0-33.0); Mean Corpuscular Volume 89.7 fL (80.0-98.0); Mean Platelet Volume 9.4 fL (9.4-12.3); Monocytes Absolute Auto 1.1 X10*3/uL (0.1-1.2); Monocytes Percent Auto 11.2 % (2-11); Neutrophils Absolute Auto 6.7 x10*3/uL (2.0-8.3); Neutrophils Percent Auto 69.8 % (45-73); Platelet Count 249 X10*3/uL (160-400); Red Blood Count 5.34 X10*6/uL (4.20-5.50); Red Cell Distribution Width 13.7 % (11.0-16.0); White Blood Count 9.6 X10*3/uL (4.8-10.8)
[2022-12-22 17:10] VITALS: BP 150/97; PULSE 107; RESP 18; TEMP 37; O2SAT 94
[2022-12-22 17:14] LABS: Prothrombin Time 11.4 SEC (10.0-13.1)
[2022-12-22 17:26] LABS: B Type Natriuretic Peptide 15 pg/mL (<100)
[2022-12-22 17:27] LABS: Alanine Aminotransferase 8 U/L (0-31); Albumin Level 3.7 g/dL (3.5-5.0); Alkaline Phosphatase 55 U/L (39-117); Anion Gap 11 (12-20); Aspartate Amino Transferase 15 U/L (5-31); Bilirubin Direct 0.2 mg/dL (0.0-0.5); Bilirubin Total 0.6 mg/dL (0.0-1.0); Blood Urea Nitrogen 14 mg/dL (9-16); Calcium 9.5 mg/dL (8.4-10.2); Carbon Dioxide 23 mmol/L (22-29); Chloride 105 mmol/L (96-108); Creatinine Clr Calc Pharmacy 56.4; Estimated Glomerular Filt Rate > 60; Glucose Random 102 mg/dL (60-115); Potassium 4.2 mmol/L (3.3-5.1); Sodium 135 mmol/L (135-145); Total Protein 7.4 g/dL (6.5-8.0)
[2022-12-22 17:29] LABS: Troponin-I High Sensitivity < 2.7 ng/L (<3.5-17.0)
[2022-12-22 17:41] LABS: TSH reflex Free T4 1.55 uIU/mL (0.32-4.0)
[2022-12-22 18:15] LABS: COVID-19 Test Negative (Negative); IDNOW Serial# 6674DD1D
[2022-12-22] MEDS: Ibuprofen 400 MG TABLET PO (18:50)
[2022-12-22] MEDS: Acetaminophen 325 MG TABLET 975 MG PO (18:51)
[2022-12-22 18:52] VITALS: BP 154/88; PULSE 95; RESP 23; TEMP 36.7; O2SAT 92
[2022-12-22 18:59] LABS: D Dimer High Sensitivity 482 NG/ML
[2022-12-22] MEDS: Albuterol/Iprat 2.5/0.5MG 3 ML AMPUL.NEB INHALE (19:36)
[2022-12-22 19:37] VITALS: PULSE 97; RESP 16; O2SAT 96
[2022-12-22] MEDS: methylPREDNISolone Sod Succ 125 MG/2 ML VIAL IVPUSH (20:10)
[2022-12-22] MEDS: iohexoL 350 MG/ML 100 ML INFUS..BTL IV (20:28)
[2022-12-22 21:06] VITALS: BP 135/76; PULSE 100; RESP 17; TEMP 36.7; O2SAT 95
[2022-12-22 21:22] VITALS: BP 130/74; PULSE 95; RESP 18; O2SAT 95
[2022-12-22] MEDS: Amoxicillin/Potassium Clav 875 MG TABLET PO (22:20)
== END 2022-12-22 22:20 | disposition home or self-care (01) ==
PROVIDERS: Physician Assistant; Emergency Provider Student in an Organized Health Care Education/Training Program; PCP Internal Medicine
DX: J44.9 Chronic obstructive pulmonary disease, unspecified (principal); J18.9 Pneumonia, unspecified organism; R06.02 Shortness of breath; Z20.822 Contact with and (suspected) exposure to COVID-19; Z87.891 Personal history of nicotine dependence; Z79.899 Other long term (current) drug therapy; Z20.828 Contact with and (suspected) exposure to other viral communicable diseases
CPT/HCPCS: 36415; 71046; 71275; 80048; 80076; 83735; 83880; 84443; 84484; 85025; 85379; 85610; 87635; 93005; 94640; 96374; 99284; 99285; J2930; Q9967

== ENCOUNTER 2023-01-28 13:12 | Outpatient (AMB) | payer MEDICARE, SELFPAY ==
[2023-01-28 13:22] VITALS: BP 128/70; PULSE 85; O2SAT 96; BMI 27.2
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
[2023-01-30 22:54] VITALS: PULSE 89; O2SAT 94
== END 2023-01-28 13:57 | disposition home or self-care (01) ==
PROVIDERS: PCP Internal Medicine; Visit Provider Hospitalist
DX: J44.9 Chronic obstructive pulmonary disease, unspecified (principal); R91.8 Other nonspecific abnormal finding of lung field; R06.00 Dyspnea, unspecified; R09.02 Hypoxemia; J18.9 Pneumonia, unspecified organism
CPT/HCPCS: 94618; 99214

== ENCOUNTER 2023-01-28 13:12 | Outpatient (REF) | payer MEDICARE, SELFPAY ==
--- NOTE | ~2023-01-28 | XR_ITS ---
EXAMINATION: XR CHEST CLINICAL INFORMATION: Pneumonia. COMPARISON: Chest x-ray and chest CT dated 12/22/2022. TECHNIQUE: 2 views of the chest were obtained. XR/XR chest 2V FINDINGS/IMPRESSION: The previously seen left lower lobe superior segment focal infiltrate was much better appreciated on prior CT scan. It is less well evaluated on prior and current chest x-rays; no obvious focal infiltrate is appreciated on the current study. Emphysema was better demonstrated on prior CT as well. CT scan of the chest may be of more use for follow-up to resolution after an appropriate course of therapy has been completed. Uncoiled aorta, suggesting hypertension. Thoracic kyphosis. Mild degenerative changes of the spine.
== END 2023-01-28 13:13 | disposition home or self-care (01) ==
LOC: HO.XRAY 13:12
PROVIDERS: PCP Internal Medicine; Visit Provider Hospitalist
DX: J44.9 Chronic obstructive pulmonary disease, unspecified (principal); J18.9 Pneumonia, unspecified organism; R91.8 Other nonspecific abnormal finding of lung field; R06.00 Dyspnea, unspecified; R09.02 Hypoxemia
CPT/HCPCS: 71046; 94618; 99212

== ENCOUNTER → 2023-02-24 12:16 | Outpatient (REF) | payer MEDICARE, SELFPAY ==
--- NOTE | 2023-02-24 12:18 | CA_ITS ---
Transthoracic Echocardiogram Patient (Last, First, Middle): Yareli Schneider R Gender: Female Date of : 1945 Age: 77 Procedure Date: 02/24/2023 Procedure Type: Transthoracic Echocardiogram Location: OP Height: 167.64 cm Weight: 65.32 kg BSA: 1.74 m2 Heart Rate: 74 bpm BP: 130 / 80 mmHg Tractor Operator Laser Leveling: SB Referring MD: Feilpe Cuevas MD Business Technology Teacher: Blaa Landrum MD Symptoms: I27.20 - Pulmonary hypertension, unspecified Study Quality: Adequate ECG Rhythm: Sinus Conclusions: - 1. Normal LV ejection fraction 55-60% with impaired relaxation filling pattern 2. Normal cardiac valvular Doppler 3. Normal RV systolic pressure 4. No gross pericardial effusion Findings Left Ventricle Normal left ventricular size, thickness, and systolic function. The visually estimated ejection fraction is between 55-60%. Spectral Doppler is indicative of an impaired relaxation filling pattern. E/E prime ratio is between 8 and 15 consistent with indeterminate filling pressures. Peak GLS is -16.7%, mildly reduced. Right Ventricle Normal right ventricular cavity size and systolic function. Atria Both atria are normal in size. Interatrial shunt cannot be excluded. Aortic Valve Normal aortic valve structure and function. There is no aortic valve stenosis. There is no aortic valve regurgitation. Mitral Valve Likely normal mitral valve structure and function. There is trace mitral valve regurgitation. There is no mitral valve stenosis. Pulmonic Valve The pulmonic valve was not well visualized. Tricuspid Valve Likely normal tricuspid valve structure and function. There is trace tricuspid valve regurgitation. The right ventricular systolic pressure is normal. The right ventricular systolic pressure is 27 mmHg. Normal right atrial pressure. There is no evidence of pulmonary hypertension. Great Vessels All visible segments of the aorta are normal in size. The pulmonary artery was not well visualized. Venous The inferior vena cava is normal in size and collapses greater than 50% with inspiration. Pericardium/Pleural There is no evidence of pericardial effusion. Prior Study Comparison No prior study available for comparison. Measurements 2D Linear Measurements IVSd: 0.87 0.6-0.9/0.6-1.0 cm LVIDd: 4.29 3.9-5.3/4.2-5.9 cm LVIDd Index: 2.47 2.4-3.2/2.2-3.1 cm/m2 LVIDs: 2.89 2.0-3.6 cm LVPWd: 0.65 0.7-1.1 cm LA Diam: 2.60 2.7-3.8/3.0-4.0 cm LAIDs Index: 1.49 1.5-2.3 cm/m2 LV Mass: 122.07 67-162/88-224 g LV Mass Index: 70.15 43-95/49-115 g/m2 LVOT Diam: 2.20 3.0+(-)1.3 cm 2D Systolic Function EF 2C: 58.80 >55% Mitral Valve MV Pk E: 0.60 MV PK A: 1.06 MV Decel Time: 284.00 E/A: 0.60 E'Lateral: 5.33 E'Medial: 3.70 E/E' Med: 16.30 E/E' Lat: 11.30 PHT: 83.00 MVA PHT: 2.65 Decel Winkler: 2.13 Aortic Valve AoV Pk Dominic: 1.10 AoV Pk Grad: 5.00 PRASHANTH: 3.66 LVOT LVOT Pk Dominic: 1.07 LVOT Mn Dominic: 0.69 LVOT VTI: 0.22 LVOT Pk Grad: 5.00 LVOT Mn Grad: 2.00 LVOT Diam: 2.20 LVOT Area: 3.80 Diastolic Function MV Pk E: 0.60 MV Pk A: 1.06 E/A: 0.60 E'Medial: 3.70 E/E' Med: 16.30 E' Laterial: 5.33 E/E' Lat: 11.30 Right Ventricle TAPSE (mm): 18.80 TVS' Dominic: 12.10 Tricuspid Valve TR Pk Dominic: 2.45 TR Pk Grad: 24.00 RA Press: 3.00 RVSP: 27.00 Great Vessels Aorta Sinus of Valsalva: 3.40 2.0-3.5 cm Ao Asc: 3.40 2.1-3.4 cm Pulmonary Valve PV Pk Dominic: 0.75 Peak PV Grad: 2.00 Updated in Other Vendor System with Status of Final Bala Landrum MD electronically signed on 02/25/2023 2:21:42 PM with status of Final
== END ==
LOC: HO.CARD 12:16
PROVIDERS: PCP Internal Medicine; Visit Provider Hospitalist
DX: I27.20 Pulmonary hypertension, unspecified (principal)
CPT/HCPCS: 93306

== ENCOUNTER → 2023-02-24 12:18 | Outpatient (BNV) | payer MEDICARE, SELFPAY | PROVIDERS: PCP Internal Medicine; Visit Provider Internal Medicine Cardiovascular Disease | DX: R94.31 Abnormal electrocardiogram [ECG] [EKG] (principal); I27.20 Pulmonary hypertension, unspecified | CPT/HCPCS: 93306 ==

== ENCOUNTER 2023-04-25 12:02 | Outpatient (REF) | payer MEDICARE, SELFPAY ==
[2023-04-25 12:11] LABS: MANUAL DIFF FLAG NO
[2023-04-25 12:33] LABS: Basophils Absolute Auto 0.1 X10*3/uL (0.0-0.2); Basophils Percent Auto 0.9 % (0-2); Eosinophils Absolute Auto 0.2 X10*3/uL (0.0-0.4); Eosinophils Percent Auto 3.3 % (0-4); Hematocrit 47.4 % (37.0-47.0); Hemoglobin 15.7 g/dl (12.0-16.0); Imm Gran Abs Auto 0.02 X10*3/uL (0.00-0.03); Imm Gran Pct Auto 0.3 % (0.0-0.4); Lymphocytes Absolute Auto 1.4 X10*3/uL (1.2-4.9); Lymphocytes Percent Auto 20.8 % (20-40); Mean Corpuscular HGB Conc 33.1 g/dl (31.0-35.0); Mean Corpuscular Hemoglobin 29.8 pg (27.0-33.0); Mean Corpuscular Volume 89.9 fL (80.0-98.0); Mean Platelet Volume 9.4 fL (9.4-12.3); Monocytes Absolute Auto 0.6 X10*3/uL (0.1-1.2); Monocytes Percent Auto 9.3 % (2-11); Neutrophils Absolute Auto 4.5 x10*3/uL (2.0-8.3); Neutrophils Percent Auto 65.4 % (45-73); Platelet Count 240 X10*3/uL (160-400); Red Blood Count 5.27 X10*6/uL (4.20-5.50); Red Cell Distribution Width 13.5 % (11.0-16.0); White Blood Count 6.9 X10*3/uL (4.8-10.8)
[2023-04-25 13:27] LABS: Alanine Aminotransferase 12 U/L (0-31); Albumin Level 3.8 g/dL (3.5-5.0); Alkaline Phosphatase 60 U/L (39-117); Anion Gap 12 (12-20); Aspartate Amino Transferase 19 U/L (5-31); Bilirubin Total 0.5 mg/dL (0.0-1.0); Blood Urea Nitrogen 12 mg/dL (9-16); Calcium 9.4 mg/dL (8.4-10.2); Carbon Dioxide 27 mmol/L (22-29); Chloride 108 mmol/L (96-108); Cholesterol 213 mg/dL (<200); Estimated Glomerular Filt Rate 57; Glucose Fasting 92 mg/dL (60-99); HDL Cholesterol 70 mg/dL (>40); LDL Cholesterol Calculated 124 mg/dL (<100); Potassium 4.4 mmol/L (3.3-5.1); Sodium 143 mmol/L (135-145); Total Protein 7.1 g/dL (6.5-8.0); Triglycerides 98 mg/dL (<150)
[2023-04-25 13:44] LABS: Vitamin D 25-OH Total 23.1 ng/mL (>30)
== END 2023-04-25 12:03 | disposition home or self-care (01) ==
LOC: HO.LAB 12:02
PROVIDERS: PCP Internal Medicine; Visit Provider Internal Medicine
DX: J44.9 Chronic obstructive pulmonary disease, unspecified (principal); Z85.3 Personal history of malignant neoplasm of breast; Z82.49 Family history of ischemic heart disease and other diseases of the circulatory system; M85.80 Other specified disorders of bone density and structure, unspecified site
CPT/HCPCS: 36415; 80053; 80061; 82306; 85025

== ENCOUNTER 2023-04-26 12:55 | Outpatient (AMB) | payer MEDICARE, SELFPAY ==
[2023-04-26 13:11] VITALS: BP 134/78; PULSE 90; O2SAT 95; BMI 27.4
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
== END 2023-04-26 14:21 | disposition home or self-care (01) ==
PROVIDERS: PCP Internal Medicine; Visit Provider Hospitalist
DX: J43.2 Centrilobular emphysema (principal); R91.8 Other nonspecific abnormal finding of lung field; R06.09 Other forms of dyspnea; R09.02 Hypoxemia
CPT/HCPCS: 99214

== ENCOUNTER → 2023-04-26 12:55 | Outpatient (BNVA) | payer MEDICARE, SELFPAY | PROVIDERS: PCP Internal Medicine; Visit Provider Hospitalist | DX: J43.2 Centrilobular emphysema (principal); R91.8 Other nonspecific abnormal finding of lung field; R06.09 Other forms of dyspnea; R09.02 Hypoxemia | CPT/HCPCS: 99212 ==

== ENCOUNTER 2023-06-29 10:32 | Outpatient (REF) | payer MEDICARE, SELFPAY | END 2023-06-29 10:33 | disposition home or self-care (01) | LOC: HO.MAMMO 10:32 | PROVIDERS: PCP Internal Medicine; Visit Provider Internal Medicine Medical Oncology | DX: Z13.820 Encounter for screening for osteoporosis (principal); M85.80 Other specified disorders of bone density and structure, unspecified site; M85.9 Disorder of bone density and structure, unspecified; Z78.0 Asymptomatic menopausal state | CPT/HCPCS: 77080 ==

== ENCOUNTER 2023-09-07 16:14 | Outpatient (REF) | payer MEDICARE, SELFPAY ==
--- NOTE | ~2023-09-07 | XR_ITS ---
EXAMINATION: XR KNEE, LEFT CLINICAL INFORMATION: Pain COMPARISON: None available. TECHNIQUE: Four views of the left knee. FINDINGS: Bone alignment is normal. No fracture or dislocation. Mild lateral femoral tibial meniscal calcification. Joint spaces are otherwise normal. Small to moderate joint effusion. XR/XR knee LT 4V IMPRESSION: Small to moderate joint effusion. Mild lateral femoral tibial meniscal calcification.
--- NOTE | ~2023-09-07 | US_ITS ---
EXAMINATION: US VENOUS ULTRASOUND WITH DOPPLER LOWER EXTREMITY, LEFT CLINICAL INFORMATION: Left leg pain COMPARISON: 10/26/2021 TECHNIQUE: Ultrasound of the deep veins is performed from the hip to the calf with compression sonography and color and pulse Doppler assessment. Spectral analysis with color-flow imaging is performed. FINDINGS: Again seen is some partially compressible nonobstructing mural thrombus in the left popliteal similar to the prior exam on 10/26/2021. There is normal venous compression and respiratory variation and augmented flow throughout the remainder of the left lower extremity. The visualized common femoral vein, superficial femoral vein, profunda femoral vein and the trifurcation region shows no evidence of deep venous thrombosis. There is no significant popliteal fossa cyst. US/US venous duplex LE LT IMPRESSION: 1. No evidence of definite acute deep venous thrombosis in the left lower extremity. 2. 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
== END 2023-09-07 16:15 | disposition home or self-care (01) ==
LOC: HO.US 16:14
PROVIDERS: PCP Internal Medicine; Visit Provider Internal Medicine
DX: M79.605 Pain in left leg (principal); M25.562 Pain in left knee
CPT/HCPCS: 73564; 93971

== ENCOUNTER 2023-11-23 14:05 | Emergency (ER) | payer MEDICARE, SELFPAY ==
--- NOTE | ~2023-11-23 | XR_ITS ---
EXAMINATION: XR CHEST CLINICAL INFORMATION: Cough COMPARISON: 01/28/2023 TECHNIQUE: Frontal view of the chest was obtained. FINDINGS: Lungs are clear hyperinflated without infiltrates, nodules, pleural effusion. Cardiomediastinal silhouette is unremarkable XR/XR chest 1V IMPRESSION: No active cardiopulmonary disease.
[2023-11-23 14:12] VITALS: BP 111/85; PULSE 108; RESP 19; TEMP 36.6; O2SAT 95; BMI 26.0
--- NOTE | 2023-11-23 14:15 | ED.GENADULT ---
HPI - General Adult General Chief complaint: Upper Respiratory Symptoms Stated complaint: Sweating, headache, cough Time Seen by Provider: 11/23/23 14:21 Source: patient Mode of arrival: ambulatory Limitations: no limitations History of Present Illness ED Provider: Cami Atkins PA-C HPI narrative: Patient is an 78 year old assigned female at with a history of COPD presenting to the emergency department today with a cough and congestion. Patient states that over the last 4 days she has had a cough and congestion. Patient denies any dizziness, lightheadedness, abdominal pain, nausea, vomiting, fever, chills, blurry vision, double vision, loss of vision, chest pain, difficulty breathing, shortness of breath, back pain, night sweats, pain with urination, increased urinary frequency, increased urinary urgency, blood in her urine or stool, syncope or a near syncopal episode, recent trauma or falls, bowel incontinence, bladder incontinence, bowel retention, bladder retention, or any other complaints at this time. Onset (ago): day(s) (4) Severity: mild Severity scale (1-10): 2 Relieving factors: none Exacerbating factors: none Associated symptoms: cough Treatments prior to arrival: none Related Data Home Medications ?Medication ?Instructions ?Recorded ?Confirmed calcium carbonate 500 mg-vitamin 1 tab PO DAILY 04/29/22 04/28/23 D3 3.125 mcg (125 unit) tablet cholecalciferol (vitamin D3) 25 25 mcg PO DAILY 01/28/23 04/28/23 mcg (1,000 unit) capsule Previous Rx's ?Medication ?Instructions ?Recorded umeclidinium 62.5 mcg-vilanterol 1 inh inhalation DAILY #60 ea 08/29/23 25 mcg/actuation powdr for inhalation (Anoro Ellipta) amoxicillin 875 mg-potassium 1 tab PO BID 5 days #10 tabs 11/23/23 clavulanate 125 mg tablet doxycycline hyclate 100 mg tablet 100 mg PO BID 5 days #10 tabs 11/23/23 prednisone 20 mg tablet 20 mg PO DAILY 12 days #26 tabs 11/23/23 Allergies Allergy/AdvReac Type Severity Reaction Status Date / Time No Known Allergies Allergy Verified 11/23/23 14:15 Review of Systems Constitutional: Constitutional: Reports no additional constitutional complaints, Denies chills, Denies fever(s) and Denies night sweats Eyes: Eyes: Reports no additional eye complaints, Denies blurry vision, Denies change in vision, Denies diplopia, Denies eye discharge, Denies loss of vision and Denies eye pain ENT: Denies dizziness and Reports nasal congestion Cardiovascular: Cardiovascular: Reports no additional cardiovascular complaints, Denies chest pain, Denies lightheadedness, Denies Loss of Consciousness and Denies dyspnea Respiratory: Respiratory: Reports no additional respiratory complaints, Reports cough and Denies dyspnea Gastrointestinal: Gastrointestinal: Reports no additional gastrointestinal complaints, Denies abdominal pain, Denies melena, Denies hematochezia, Denies change in bowel habits and Denies change in stool character Genitourinary: Genitourinary: Denies hematuria, Denies urinary frequency, Denies dysuria, Denies urinary incontinence, Denies urinary hesitancy and Denies urinary urgency Musculoskeletal: Musculoskeletal: Reports no additional musculoskeletal complaints, Denies numbness and Denies tingling Neurologic: Denies dizziness, Denies loss of vision, Denies numbness and Denies tingling Psychiatric: Psychiatric: Reports no additional psychiatric complaints Endocrine: Endocrine: Reports no additional endocrine complaints Hematologic/Lymphatic: Hematologic/Lymphatic: Reports no additional hematologic/lymphatic complaints Allergic/Immunologic: Allergic/Immunologic: Reports no additional allergic/immunologic complaints [facility] Past Medical History Attestation statement: The following information was validated with the patient. Source: old records reviewed and nursing notes reviewed Medical History Hypoxia Dyspnea Pulmonary nodules COPD (chronic obstructive pulmonary disease) Retinal tear Cataracts, bilateral Invasive ductal carcinoma of right breast, stage 1 Pulmonary embolism Surgical History History of repair of retinal tear by laser photocoagulation History of eye surgery History of lumpectomy of right breast (07/2010) Family History Family History Father No problems noted. Mother No problems noted. Paternal Aunt Lung cancer Maternal Uncle Lung cancer Maternal Aunt Lung cancer Son Colon cancer Social History Social History Household Members: None Housing: House Are you a primary manager home healthcare to a significant other at home: No Do you presently have visiting nurse or other home services: No Patient Tobacco Use Status: Former Tobacco user Tobacco use type: Cigarette Years Smoked: 25 Second Hand Smoke Exposure: No Advance Directives: No Advance Directives Information Provided: Yes service: No Current occupational status: retired Physical Exam ED Vital Signs: Vital Signs - 24 hr 11/23/23 14:12 11/23/23 16:11 Temperature 98 F 98 F Pulse Rate 108 H 108 H Respiratory Rate 19 19 Blood Pressure 111/85 111/85 Pulse Oximetry 95 95 Oxygen Delivery Method Room Air Room Air BMI result Body Mass Index 26.0 Const General: cooperative, no acute distress, alert and awake Nutritional Appearance: well nourished Orientation/consciousness: patient oriented x3 Limitations: no limitations HENMT Head: Yes normal to inspection and Yes atraumatic Ears: hearing grossly normal bilaterally and external ears normal General nose exam: Normal external nose present, no nasal discharge noted and no epistaxis Face and sinus: Yes normal facial exam, No abrasion and No laceration Mouth: Normal oral and palatal mucosa present, no drooling and no muffled voice Eyes General: appearance normal, both eyes and all related structures Periorbital: periorbital findings normal Eyelids: Yes eyelids normal Conjunctivae: conjunctivae normal Pupils: Equal, round and reactive pupils present EOM: EOMs intact bilaterally Neck Neck: Yes normal visual inspection, Yes full ROM and Yes no lymphadenopathy Chest Chest palpation & inspection: normal inspection of the chest Resp Effort & Inspection: normal respiratory effort and able to speak in complete sentences GI Inspection: Yes normal to inspection Neuro General: patient oriented x3 and moves all extremities Cranial nerves: Yes Equal, round and reactive pupils present Cognition (Neuro): normal cognition Motor exam (neuro): 5/5 motor strength present throughout Sensory Exam: Normal double simultaneous stimulation for sensation Coordination: [id number] test normal Extrem General: Yes normal to inspection, Yes full ROM and Yes capillary refill normal Psych Appearance: grossly normal Mental Status: mental status grossly normal Affect: normal affect Attitude: cooperative Thought process: Normal thought process present Thought content: Normal thought content present Insight: Good insight present (Psych) Course Course Course Narrative: This is an RME done by ALTHEA Davila: Additional HPI, ROS, PE not included below will be deferred to primary provider. 78 yo f hx of copd, invasive ductal cacinom of right breast, presents w/ sweats, headache, cough, fatigue, malais, myalgias X 3 days worsening. No sick contacts. No cp or sob. Also reporting 6 lb weight loss since Tuesday. Plan- cxr, viral testing Appearance: Alert.? Oriented X3.? No acute cardiopulmonary distress distress.? Head: Normocephalic, atraumatic, no step-offs or deformities Neck: Normal inspection.? Neck supple.? CVS: Pulses normal.? Respiratory: No respiratory distress.? Abdomen: Soft and nontender.? Skin: ? Normal skin color. Extremities: 5/5 strength to bilateral upper and lower extremities Back: No midline tenderness, no C-spine tenderness, full range of motion, No CVA tenderness bilaterally Neuro: Oriented X 3.? No motor deficit.? No sensory deficit. Medical Decision Making Medical Decision Making [facility] Narrative: Patient is an 78 year old assigned female at with a history of COPD presenting to the emergency department today with a cough and congestion. Patient's physical exam was unremarkable. Patient's COVID-19 test was positive. Patient's Influenza and RSV tests were negative. Patient's chest x-ray showed no acute process. I explained my physical exam findings as well as all test results to the patient. I answered all questions asked by the patient. Given the patient's COPD status, will cover with steroids + ABX. Patient is out of the window for PAXLOVID. I stressed the importance of the patient taking her medication as prescribed. I stressed the importance of the patient following up with her primary care provider. I stressed the importance of the patient returning to the emergency department immediately if her symptoms were to worsen or if she were to develop any dizziness, shortness of breath, difficulty breathing, chest pain, blurry vision, loss of vision, nausea, vomiting, abdominal pain, fever, chills, back pain, or any other complaints. Patient verbalized agreement and understanding with this treatment plan and discharge. Differential Diagnosis Differential Diagnoses: The differential diagnosis associated with the presentation includes COPD exacerbation Influenza PNA COVID-19 RSV Viral illness Admission/Observation Consideration of admission/observation: Escalation of care including admission/observation considered Patient would have been admitted to the hospital had her work up had any findings where hospital admission was appropriate and her clinical presentation warranted hospital admission. Lab Data [facility] Lab Attestation statement: I reviewed the patient's lab results. My interpretation of these results are in the MDM Rationale portion of this note. Labs: Lab Results 11/23/23 Range/Units 14:26 Influenza Type A (PCR) NEGATIVE (Negative) Influenza Type B (PCR) NEGATIVE (Negative) RSV RNA Qual (PCR) NEGATIVE (Negative) SARS-CoV-2 RNA (RT-PCR) POSITIVE A (Negative) Independent Interpretation I performed an independent interpretation of an: Plain X-Ray Interpretation: My interpretation is in agreement with the radiologist's impression of this imaging study. EXAMINATION: XR CHEST CLINICAL INFORMATION: Cough COMPARISON: 01/28/2023 TECHNIQUE: Frontal view of the chest was obtained. FINDINGS: Lungs are clear hyperinflated without infiltrates, nodules, pleural effusion. Cardiomediastinal silhouette is unremarkable XR/XR chest 1V IMPRESSION: No active cardiopulmonary disease. Dictated By: Jase Sevilla MD Signed By: Electronically signed by Jase Sevilla MD 11/23/23 1524 Radiology Impression Discussion of test interpretation with radiology: I have reviewed the radiologist's reading. Prescription Management I considered prescription management with: Antiviral (Paxlovid was considered however the patient is out of the window) and Antibiotic (given patient's COPD status and being COVID+, prescribed appropriate PNA ABX) Chronic Conditions Patient?s care impacted by: Other (COPD) Discharge Plan Discharge Clinical Impression: COVID-19 COPD (chronic obstructive pulmonary disease) Qualifiers: COPD type: emphysema Emphysema type: centrilobular Qualified Code(s): J43.2 - Centrilobular emphysema Patient Disposition: Home, Self-Care Instructions: COPD (Chronic Obstructive Pulmonary Disease) (DC), COVID-19 (Coronavirus Disease 2019) (ED) Additional Instructions: Follow up with your primary care provider. Return to the emergency department immediately if your symptoms worsen or if you develop any dizziness, shortness of breath, difficulty breathing, chest pain, blurry vision, loss of vision, nausea, vomiting, abdominal pain, fever, chills, back pain, or any other complaints. Prescriptions: New prednisone 20 mg tablet 20 mg PO DAILY 12 Days Qty: 26 0RF Rx Instructions: Take 3 tablets for 5 days THEN; Take 2 tablets for 4 days THEN; Take 1 tablet for 3 days doxycycline hyclate 100 mg tablet 100 mg PO BID 5 Days Qty: 10 0RF amoxicillin-pot clavulanate 875-125 mg tablet 1 tab PO BID 5 Days Qty: 10 0RF No Action Anoro Ellipta 62.5-25 mcg/actuation blister with device 1 inh inhalation DAILY Qty: 60 11RF calcium carbonate-vitamin D3 [Calcium 500 + D (D3)] 500 mg-3.125 mcg (125 unit) Tablet 1 tab PO DAILY cholecalciferol (vitamin D3) 25 mcg (1,000 unit) capsule 25 mcg PO DAILY Referrals: Genaro Anderson MD [Primary Care Provider] - Interventions: ED Discharge Assessment Last Done: 11/23/23 16:11 Discharge Date/Time: 11/23/23 16:12 Print Language: Citizen Of [place]
[2023-11-23 15:09] LABS: Influenza A PCR NEGATIVE (Negative); Influenza B PCR NEGATIVE (Negative); Resp Syncy Virus RNA Qual PCR NEGATIVE (Negative); SARS COV2 PCR INHOUSE POSITIVE (Negative)
[2023-11-23 16:11] VITALS: BP 111/85; PULSE 108; RESP 19; TEMP 36.6; O2SAT 95
== END 2023-11-23 16:12 | disposition home or self-care (01) ==
PROVIDERS: Physician Assistant; Emergency Provider Emergency Medicine; PCP Internal Medicine
DX: U07.1 COVID-19 (principal); J43.2 Centrilobular emphysema; Z87.891 Personal history of nicotine dependence
CPT/HCPCS: 0241U; 71045; 99282; 99283

== ENCOUNTER 2023-12-06 09:01 | Outpatient (AMB) | payer MEDICARE, SELFPAY ==
[2023-12-06 09:15] VITALS: BP 134/78; PULSE 89; O2SAT 98; BMI 26.2
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
== END 2023-12-06 09:36 | disposition home or self-care (01) ==
PROVIDERS: PCP Internal Medicine; Visit Provider Hospitalist
DX: J43.2 Centrilobular emphysema (principal); R91.8 Other nonspecific abnormal finding of lung field; R06.09 Other forms of dyspnea; R09.02 Hypoxemia; U07.1 COVID-19
CPT/HCPCS: 99214

== ENCOUNTER → 2023-12-06 09:01 | Outpatient (BNVA) | payer MEDICARE, SELFPAY | PROVIDERS: PCP Internal Medicine; Visit Provider Hospitalist | DX: C50.911 Malignant neoplasm of unspecified site of right female breast (principal); J43.2 Centrilobular emphysema; R91.8 Other nonspecific abnormal finding of lung field; R06.09 Other forms of dyspnea; R09.02 Hypoxemia; U07.1 COVID-19 | CPT/HCPCS: 99212 ==

== ENCOUNTER 2023-12-06 09:58 | Outpatient (AMB) | payer MEDICARE, SELFPAY ==
--- NOTE | 2023-12-06 10:13 | A.OFFVIS_ITS ---
Vital Signs 12/06/23 10:16 Height 5 ft 6 in Weight 164 lb BMI 26.5 BP 128/70 Blood Pressure Location Lt brachial Position Sitting Intake Visit Reasons: annual breast exam Intake Note: This patient presents for a yearly breast exam. Patient c/o; reports no breast complaints at this time. Field Service Technician Required: No Accompanied by: Self / Same As Patient Allergies No Known Allergies Allergy (Verified 12/06/23 10:17) Medication List - Last Reconciled 12/06/23 by Luis Angel Leyva MD aspirin 81 mg PO DAILY calcium carbonate-vitamin D3 500 mg-3.125 mcg (125 unit) 1 tab PO DAILY cholecalciferol (vitamin D3) 25 mcg PO DAILY umeclidinium-vilanterol 62.5-25 mcg/actuation (Anoro Ellipta) 1 inh inhalation DAILY HPI Comments Details: Yareli Schneider is a 78-year-old female patient, former patient of Dr. Jimenez returning for a yearly examination for right breast cancer. 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 She underwent right breast lumpectomy with sentinel node biopsy in June 2010. 0 of 2 sentinel nodes were positive for metastatic disease. TNM staging T1a N0 M0. (Stage I). She was initially started on t amoxifen but developed a pulmonary embolus and was subsequently switched to anastrozole which she took for 5 years. This was discontinued in 2016. She reported a palpable nodule in the area of the incision In the right breast at the area of incision. She subsequently underwent a follow-up mammogram on 10/24/2020. This included an ultrasound of the right breast. This revealed no mammographic evidence of malignancy or inflammatory changes, stable post therapy changes right breast, unremarkable targeted right breast ultrasound (BI-RADS 2 benign ). Routine annual screening mammography was recommended. Since the mammogram the palpable nodule has resolved. She denies any new breast symptoms in either breast does continue to have some soreness in the lower outer right breast. Her last mammogram of 11/15/2022 revealed no mammographic evidence of malignancy. Post therapy changes were noted on the right side (BI-RADS 2: Benign ). She was scheduled for a mammogram in October 2023 however subsequently developed COVID and needed to cancel. She is now scheduled for a mammogram on 12/09/2023. [facility] Medical History Hypoxia Dyspnea Pulmonary nodules COPD (chronic obstructive pulmonary disease) Retinal tear Cataracts, bilateral Invasive ductal carcinoma of right breast, stage 1 Pulmonary embolism Surgical History History of repair of retinal tear by laser photocoagulation History of eye surgery History of lumpectomy of right breast (07/2010) Family History Father No problems noted. Mother No problems noted. Paternal Aunt Lung cancer Maternal Uncle Lung cancer Maternal Aunt Lung cancer Son Colon cancer Social History Household Members: None Housing: House Are you a primary caregiver assisted living to a significant other at home: No Do you presently have visiting nurse or other home services: No Patient Tobacco Use Status: Former Tobacco user Tobacco use type: Cigarette Years Smoked: 25 Second Hand Smoke Exposure: No service: No Current occupational status: retired Review of Systems Const All systems reviewed & are unremarkable except as noted in HPI and below Card Denies dyspnea Resp Denies chest congestion, Denies cough and Denies dyspnea GI Reports no additional complaints Denies nipple discharge Skin/Breast Denies breast swelling, Denies breast skin changes, Reports breast pain, Reports breast mass, Denies change in breast shape and Denies nipple discharge Jake/Lymph Denies lymphadenopathy Physical Exam Vital Signs: Last Vital Signs BP 128/70 12/06/23 10:16 BMI result Body Mass Index 26.5 Const General: cooperative, healthy appearing, comfortable, no acute distress and well developed Neck Lymphatic: lymphadenopathy not noted Chest Other: Left breast: No skin change, no nipple retraction, no nipple discharge, no palpable mass, no enlarged lymph nodes. Right breast: No new skin change, well-healed incision in the lower outer quadrant, no nipple retraction, no nipple discharge, no palpable mass, no enlarged lymph nodes Resp Effort & Inspection: normal respiratory effort, no cough, no stridor and not tachypneic Skin Other: Warm, dry, no rash Extrem General: Yes no clubbing, cyanosis or edema Assessment & Plan Assessment & Plan (1) Invasive ductal carcinoma of right breast, stage 1: Code(s): C50.911 - Malignant neoplasm of unspecified site of right female breast Category: Medical Plan: 78-year-old female patient with history of right breast infiltrating ductal carcinoma grade 1, ER NV positive HER2 Tracey negative status post lumpectomy, sentinel node biopsy June 2010, with 0 of 2 sentinel nodes with metastatic disease, status post radiation therapy completed in July 2010. She returns today for a yearly breast examination. Examination today reveals a well- healed incision in the right breast at the outer lower quadrant with no palpable density, skin change, nipple change, nipple discharge, or enlarged lymph node. Left breast is normal as well. There is no evidence of recurrence disease at this time. Her most recent mammogram of 11/15/2022 revealed no new suspicious findings (BI-RADS 2). Annual screening mammogram scheduled for October 2023 was canceled due to the patient developing COVID. She is now scheduled her mammogram on 12/09/2023. I recommended follow-up in 1 year following this mammogram. She is welcome to call sooner for any new concerns. Coding Level of Care Code Est Pt Level 3 (85237) Diagnoses Invasive ductal carcinoma of right breast, stage 1 C50.911
[2023-12-06 10:16] VITALS: BP 128/70; BMI 26.5
== END 2023-12-06 10:35 | disposition home or self-care (01) ==
PROVIDERS: PCP Internal Medicine; Visit Provider Surgery
DX: Z85.3 Personal history of malignant neoplasm of breast (principal)
CPT/HCPCS: 99213

== ENCOUNTER 2023-12-09 11:44 | Outpatient (REF) | payer MEDICARE, SELFPAY ==
--- NOTE | ~2023-12-09 | MM_ITS ---
EXAMINATION: MM SCREENING DIGITAL BREAST TOMOSYNTHESIS, BILATERAL CLINICAL INFORMATION: Screening. Asymptomatic. The patient has a history of surgically treated right breast cancer. COMPARISON: Mammography: This study is compared with prior exams dating back to 2018. TECHNIQUE: Digital breast tomosynthesis is performed in both the craniocaudal and mediolateral oblique views along with computer-aided detection (CAD). Synthesized 2D images are generated from the tomosynthesis. FINDINGS: There are scattered areas of fibroglandular density (ACR BI-RADS breast composition Category b). There are no significant masses, abnormal calcifications, or other abnormalities. There are postsurgical changes in the deep third of the upper outer quadrant of the right breast from prior cancer treatment. MM/MM tomosynthesis screening BI IMPRESSION: No mammographic evidence of malignancy. ASSESSMENT: BI-RADS BI-RADS 2 - Benign Findings RECOMMENDATION: Routine annual mammography screening. 1 year F/U This examination should not preclude the clinical evaluation of a suspicious palpable abnormality. This patient's information was entered into a reminder system with a target due date for their next mammogram.
== END 2023-12-09 11:45 | disposition home or self-care (01) ==
LOC: HO.MAMMO 11:44
PROVIDERS: PCP Internal Medicine; Visit Provider Internal Medicine
DX: Z12.31 Encounter for screening mammogram for malignant neoplasm of breast (principal)
CPT/HCPCS: 77063; 77067

== ENCOUNTER → 2023-12-09 12:00 | Outpatient (BNV) | payer MEDICARE, SELFPAY | PROVIDERS: PCP Internal Medicine; Visit Provider Radiology Diagnostic Radiology | DX: Z12.31 Encounter for screening mammogram for malignant neoplasm of breast (principal) | CPT/HCPCS: 77063; 77067 ==

== ENCOUNTER 2023-12-16 12:39 | Emergency (ER) | payer MEDICARE, SELFPAY ==
--- NOTE | 2023-12-16 | ECG_ITS ---
Test Reason : abnormal ekg Blood Pressure : / mmHG Vent. Rate : 169 BPM Atrial Rate : 000 BPM P-R Int : 000 ms QRS Dur : 064 ms QT Int : 222 ms P-R-T Axes : 000 -19 044 degrees QTc Int : 372 ms Atrial fibrillation with rapid ventricular response with premature ventricular or aberrantly conducted complexes Nonspecific ST and T wave abnormality Abnormal ECG When compared with ECG of 22-DEC-2022 16:46, Atrial fibrillation has replaced Sinus rhythm ST now depressed in Anterior leads T wave inversion now evident in Lateral leads Referred By: Generic ED Physician Electronically Signed By:Nathanael Abbott
--- NOTE | ~2023-12-16 | CT_ITS ---
EXAMINATION: CT ANGIOGRAM OF THE CHEST WITH AND WITHOUT CONTRAST (CT PULMONARY ANGIOGRAM FOR PE) CLINICAL INFORMATION: Reason for Exam prior PE new onset afib elevated ddimer COMPARISON: None available. TECHNIQUE: Prior to contrast administration, noncontrast localization images were obtained. Subsequently, multidetector volumetric imaging was performed from the thoracic inlet to below the diaphragms following the administration of 80 mL Omnipaque 350 intravenous contrast. No contrast reaction reported Sagittal, coronal, and MIP oblique sagittal reformatted images were obtained on the CT workstation, uploaded to PACS, and reviewed. This CT examination was performed using dose optimization techniques as appropriate, variously including the following: *Automated exposure control *Adjustment of mA and/or kV according to patient size (this includes techniques or standardized protocols for targeted exams where dose is matched to indication/reason for exam; i.e. extremities or head) *Use of iterative reconstruction technique Total exam dose-length product 249Gy-cm FINDINGS: QUALITY OF STUDY/CONTRAST BOLUS: Satisfactory. PULMONARY ARTERIES: No pulmonary emboli. Upper normal caliber of the main pulmonary artery. THORACIC AORTA: No aneurysm. Mild aortic arch calcific atherosclerosis. LUNG: Central airways patent. Mild biapical pleural-parenchymal scarring. Unchanged severe upper lung predominant centrilobular emphysema. Mild bibasilar atelectasis with possible superimposed scarring. Interval resolution of previous superior segment left lower lobe consolidation. No focal consolidation or masses. Similar scattered sub-4 mm pulmonary micronodules and calcified granulomas. No new, suspicious pulmonary nodules identified. PLEURA: No pleural effusion or pneumothorax. MEDIASTINUM: Normal heart size. No pericardial effusion. No hilar or mediastinal lymphadenopathy. No evidence of septal bowing or right heart strain. CORONARY ARTERY CALCIFICATION: None visualized on this study. CHEST WALL/AXILLA: No axillary or internal mammary lymphadenopathy. OSSEOUS STRUCTURES: No acute or suspicious osseous abnormality. Moderate multilevel degenerative thoracic spondylosis. Unchanged mild central compression deformity of the superior endplate of T1, T3, T5. UPPER ABDOMEN: Small esophageal hiatal hernia. Otherwise unremarkable. No reflux of contrast into the hepatic veins to suggest elevated right heart pressures. CT/CT angio chest PE protocol IMPRESSION: 1. No pulmonary embolism or other acute abnormality of the thorax. 2. Unchanged severe emphysema. VTE: negative.
--- NOTE | ~2023-12-16 | XR_ITS ---
EXAMINATION: XR CHEST CLINICAL INFORMATION: Palpitations COMPARISON: Previous chest x-ray October 2023 TECHNIQUE: Frontal view of the chest was obtained. FINDINGS: The cardiac and mediastinal contours are stable. The lungs are well-inflated. The lungs are clear. No pleural effusion or pneumothorax. Degenerative changes of the thoracic spine. XR/XR chest 1V IMPRESSION: No evidence for acute disease in the chest.
--- NOTE | 2023-12-16 12:55 | ED.GENADULT ---
HPI - General Adult General Chief complaint: Arrhythmia/Palpitations Stated complaint: abd ekg, ezra sent patient from office Time Seen by Provider: 12/16/23 12:55 Source: patient and old records reviewed Mode of arrival: ambulatory Limitations: no limitations History of Present Illness ED Provider: DENNY MOCK narrative: 78 yo female with PMH of PE years ago blamed on tamoxifen use no longer on hormones on thinners, COPD not on home O2, recent COVID one month ago which was first time here with c/o going to Ezra's office for routine check and they noted HR in 180s initially thought to be SVT but on our EKG she is in afib. She has no history of this. She has no CP/SOB and she does not feel the palpitations so she does not know when this started. She has no contraindications to thinners and was on them in the past but no longer MD complaint: rapid heart rate Onset (ago): unknown Location: chest Radiation: non-radiation Severity: severe Relieving factors: none Exacerbating factors: none Associated symptoms: denies other symptoms Treatments prior to arrival: none Related Data Home Medications ?Medication ?Instructions ?Recorded ?Confirmed calcium carbonate 500 mg-vitamin 1 tab PO DAILY 04/29/22 12/06/23 D3 3.125 mcg (125 unit) tablet cholecalciferol (vitamin D3) 25 25 mcg PO DAILY 01/28/23 12/06/23 mcg (1,000 unit) capsule aspirin 81 mg tablet,delayed 81 mg PO DAILY 12/06/23 12/06/23 release Previous Rx's ?Medication ?Instructions ?Recorded umeclidinium 62.5 mcg-vilanterol 1 inh inhalation DAILY #60 ea 08/29/23 25 mcg/actuation powdr for inhalation (Anoro Ellipta) apixaban 5 mg tablet 5 mg PO BID #60 tabs 12/16/23 metoprolol tartrate 25 mg tablet 25 mg PO BID #60 tabs 12/16/23 Allergies Allergy/AdvReac Type Severity Reaction Status Date / Time No Known Allergies Allergy Verified 12/16/23 12:57 Review of Systems Review of Systems: Constitutional : No Fever, No Chills, No Fatigue ENT/Mouth : No sore throat, No Rhinorrhea Eyes: No Eye Pain, No Swelling, No Redness Cardiovascular : No Chest Pain, No SOB, No Dyspnea on Exertion Respiratory : No Cough, No Sputum Gastrointestinal : No Nausea, No Vomiting, No Diarrhea, No abdominal Pain Genitourinary : No Dysuria, No Urinary Frequency, No Hematuria, Musculoskeletal : No joint pain, No Myalgias, No Joint Swelling Skin : No Skin Lesions, No rash Neuro : No Weakness, No Numbness, No Dizziness, no Headache Psych : No Anxiety/Panic, No Depression All other systems reviewed and are negative [facility] Past Medical History Attestation statement: The following information was validated with the patient. Source: old records reviewed Medical History Hypoxia Dyspnea Pulmonary nodules COPD (chronic obstructive pulmonary disease) Retinal tear Cataracts, bilateral Invasive ductal carcinoma of right breast, stage 1 Pulmonary embolism Surgical History History of repair of retinal tear by laser photocoagulation History of eye surgery History of lumpectomy of right breast (07/2010) Family History Family History Father No problems noted. Mother No problems noted. Paternal Aunt Lung cancer Maternal Uncle Lung cancer Maternal Aunt Lung cancer Son Colon cancer Social History Social History Household Members: None Housing: House Are you a primary early breastfeeding care specialist to a significant other at home: No Do you presently have visiting nurse or other home services: No Patient Tobacco Use Status: Former Tobacco user Tobacco use type: Cigarette Years Smoked: 25 Second Hand Smoke Exposure: No Advance Directives: Yes Advance Directives Information Provided: Yes Advance Directives on File: No Do you have a plan to hurt others: No Plan service: No Current occupational status: retired Physical Exam ED Vital Signs: Vital Signs - 24 hr 12/16/23 12:56 12/16/23 13:08 12/16/23 13:45 Temperature 97.9 F Pulse Rate 168 H 178 H 145 H Respiratory Rate 18 Blood Pressure 173/98 H 173/98 H 128/78 Pulse Oximetry 93 Oxygen Delivery Method Room Air 12/16/23 15:00 Temperature Pulse Rate 78 Respiratory Rate 20 Blood Pressure 143/93 H Pulse Oximetry 95 Oxygen Delivery Method Room Air BMI result Body Mass Index 26.6 Appearance: Alert. Oriented X3. No acute distress. Eyes: Pupils equal, round and reactive to light. ENT: Pharynx normal. Neck: Normal inspection. Neck supple. CVS: rapid irregular heart rate and rhythm. Pulses normal. Respiratory: No respiratory distress. Breath sounds normal. Abdomen: Soft and nontender. Skin: Skin warm and dry. Normal skin color. Normal skin turgor. Extremities: No lower extremity edema. Neuro: Oriented X 3. No motor deficit. No sensory deficit. Course Course Course Narrative: RME performed by Cami Atkins PA-C. Patient is an 78 year old assigned female at presenting to the emergency department with palpitations. Patient states that she was at her primary care doctors office when he discovered that she was having runs of SVT so he sent her here to be monitored. Detailed physical exam and review of systems are deferred to the funeral prearrangement counselor. EKG, labs, imaging, and swabs ordered. Patient placed back in the waiting room pending room availability and results. Reevaluation(s) Reevaluation #1: responded to IV dilt 15mg but still goes up to 110 at times IV dilt ordered. Reevaluation #2: converted to NSR repeat EKG ordered anticipate if this stays will DC home on diltiazem and sarita signed out to Aris pending CTA Reevaluation #3: The patient is signed out to me by the previous emergency physician. The patient is comfortable. She is in sinus rhythm in the 70s. Blood pressure is mildly elevated. I spoke to her PCP Dr. Anderson who requested I run the question of anticoagulant agents and rate control agents by Cardiology. I contacted the on-call evaporator operator. The patient will be started on apixaban 5 mg b.i.d. and metoprolol 25 mg b.i.d.. The patient's renal function is unremarkable. Time: 17:08 Medications Administered Discontinued Medications Generic Name Dose Route Start Last Admin Trade Name Freq PRN Reason Stop Dose Admin Diltiazem HCl 10 mg 12/16/23 12:57 12/16/23 13:08 Diltiazem Hcl 50 Mg/10 Ml Vial IVPUSH 12/16/23 12:58 10 mg STAT STA Administration Diltiazem HCl 5 mg 12/16/23 13:30 12/16/23 13:45 Diltiazem Hcl 50 Mg/10 Ml Vial IVPUSH 12/16/23 13:31 5 mg STAT STA Administration Iohexol 85 ml 12/16/23 14:33 12/16/23 14:40 Iohexol 350 Mg/Ml 75 Ml Infus..Btl IV 12/16/23 14:34 Not Given ONCE ONE Iohexol 65 ml 12/16/23 14:40 12/16/23 14:41 Iohexol 350 Mg/Ml 75 Ml Infus..Btl IV 12/16/23 14:41 65 ml ONCE ONE Administration Medical Decision Making Medical Decision Making MDM Narrative: 78 yo female with PMH of PE years ago blamed on tamoxifen use no longer on hormones on thinners, COPD not on home O2, recent COVID + 1 month ago first time getting illness, now here found to be in rapid afib after routine PCP visit - she does not feel the palpitations no CP/SOB no dizziness at this time will need basic labs, BNP, troponin. IV diltiazem ordered. Her chadsvasc is 3 so she will need DOAC she denies concerns of bleeding issues. She has no signs of CHF right now. Ddimer ordered and possible CTA vs post COVID afib Differential Diagnosis Differential Diagnoses: The differential diagnosis associated with the presentation includes afib, lyte abnormality, VTE Admission/Observation Consideration of admission/observation: Escalation of care including admission/observation considered labs reassuring converted to NSR VS stable no VTE can be managed with PO dilt and eliquis Consult Healthcare Provider Management of the patient was discussed with: Hospitalist Lab Data [facility] Lab Attestation statement: I reviewed the patient's lab results. 12/16/23 13:17 12/16/23 13:17 Labs: Lab Results 12/16/23 Range/Units 13:17 WBC 6.0 (4.8-10.8) X10*3/uL RBC 5.12 (4.20-5.50) X10*6/uL Hgb 15.3 (12.0-16.0) g/dl Hct 45.8 (37.0-47.0) % MCV 89.5 (80.0-98.0) fL MCH 29.9 (27.0-33.0) pg MCHC 33.4 (31.0-35.0) g/dl RDW 14.2 (11.0-16.0) % Plt Count 207 (160-400) X10*3/uL MPV 9.3 L (9.4-12.3) fL Immature Gran % (Auto) 0.2 (0.0-0.4) % Neut % (Auto) 59.7 (45-73) % Lymph % (Auto) 24.6 (20-40) % [place] % (Auto) 10.9 (2-11) % Eos % (Auto) 3.9 (0-4) % Baso % (Auto) 0.7 (0-2) % Lymph # (Auto) 1.5 (1.2-4.9) X10*3/uL [place] # (Auto) 0.7 (0.1-1.2) X10*3/uL Eos # (Auto) 0.2 (0.0-0.4) X10*3/uL Baso # (Auto) 0.0 (0.0-0.2) X10*3/uL Abs Immat Gran (auto) 0.01 (0.00-0.03) X10*3/uL Absolute Neuts (auto) 3.6 (2.0-8.3) x10*3/uL Absolute Nucleated RBC 0.000 (0.0-0.012) X10*3/uL Nucleated RBC % (auto) 0.0 (0.0-0.2) /100WBC PT 11.3 (11.1-13.3) SEC INR 0.9 (0.9-1.1) D-Dimer High Sensitivty 2330 NG/ML Sodium 143 (135-145) mmol/L Potassium 3.8 (3.3-5.1) mmol/L Chloride 108 (96-108) mmol/L Carbon Dioxide 28 (22-29) mmol/L Anion Gap 11 L (12-20) BUN 15 (9-16) mg/dL Creatinine 0.83 (0.5-1.4) mg/dL Estim Creat Clear Calc 55.8 Estimated GFR > 60 Random Glucose 102 (60-115) mg/dL Calcium 9.4 (8.4-10.2) mg/dL Magnesium 2.0 (1.6-2.6) mg/dL Total Bilirubin 0.5 (0.0-1.0) mg/dL Direct Bilirubin 0.1 (0.0-0.5) mg/dL AST 15 (5-31) U/L ALT 13 (0-31) U/L Alkaline Phosphatase 58 (39-117) U/L Troponin I High Sens 2.9 (<3.5-17.0) ng/L B-Natriuretic Peptide 85 (<100) pg/mL Total Protein 7.0 (6.5-8.0) g/dL Albumin 3.6 (3.5-5.0) g/dL TSH 1.52 (0.32-4.0) uIU/mL Influenza Type A (PCR) NEGATIVE (Negative) Influenza Type B (PCR) NEGATIVE (Negative) RSV RNA Qual (PCR) NEGATIVE (Negative) SARS-CoV-2 RNA (RT-PCR) NEGATIVE (Negative) Independent Interpretation I performed an independent interpretation of an: EKG, Plain X-Ray and CT Scan Interpretation: Rate: 169 Rhythm: afib [place]: left Normal QRS complex. ST T wave : no TAMIKA, nonspecific ST T wave changes lateral leads qTC: 372 prior studies: changed from prior The study has been interpreted contemporaneously by me. EKG #2 Rate: 76 Rhythm: NSR [place]: left, LVH Normal P waves. Normal SHANNON. Normal QRS complex. ST T wave : inverted t wave V1, no TAMIKA qTC: 420 prior studies: NSR converted no TAMIKA The study has been interpreted contemporaneously by me. . Radiology Impression Discussion of test interpretation with radiology: I have reviewed the radiologist's reading. External Record Review External record reviewed: Inpatient record and Office record Critical Care Time Critical Care Time Critical Care Time: Yes Total Critical Care Time: 60 Attestation: repeat IV diltiazem, review of records, labs, CTA, repeat assessments. I attest to this time spent taking care of the patient Discharge Plan Discharge Clinical Impression: Atrial fibrillation Qualifiers: Atrial fibrillation type: paroxysmal Qualified Code(s): I48.0 - Paroxysmal atrial fibrillation Patient Disposition: Home, Self-Care Instructions: Metoprolol (By mouth), A-fib (Atrial Fibrillation) (ED), Blood Thinners (ED) Additional Instructions: Today you were found to have a first-time episode of a condition called atrial fibrillation. Fortunately you converted to a normal heart rhythm easily in the emergency room. We are recommending that you get two new medications. Apixaban (also known as Eliquis) is a medication which is a blood thinner medication that reduces the risk of stroke associated with atrial fibrillation. Metoprolol is a medication which helps control the heart rate from going too fast if you go into atrial fibrillation again. It also has some good blood pressure effects. Please take both of these medications 2 times a day. You have been given the name and number of the evaporator operator. Please contact this office for a follow up appointment soon for further advice about this new condition. Return to the emergency room if significantly worse. Prescriptions: New apixaban 5 mg tablet 5 mg PO BID Qty: 60 0RF metoprolol tartrate 25 mg tablet 25 mg PO BID Qty: 60 0RF No Action Anoro Ellipta 62.5-25 mcg/actuation blister with device 1 inh inhalation DAILY Qty: 60 11RF calcium carbonate-vitamin D3 [Calcium 500 + D (D3)] 500 mg-3.125 mcg (125 unit) Tablet 1 tab PO DAILY cholecalciferol (vitamin D3) 25 mcg (1,000 unit) capsule 25 mcg PO DAILY aspirin 81 mg tablet,delayed release (DR/EC) 81 mg PO DAILY Print Language: Croatian
[2023-12-16 12:56] VITALS: BP 173/98; PULSE 168; RESP 18; TEMP 36.6; O2SAT 93; BMI 26.6
[2023-12-16 13:08] VITALS: BP 173/98; PULSE 178
[2023-12-16] MEDS: dilTIAZem HCL 50 MG/10 ML VIAL 10 MG IVPUSH (13:08)
[2023-12-16 13:21] LABS: MANUAL DIFF FLAG NO
[2023-12-16 13:32] LABS: Basophils Percent Auto 0.7 % (0-2); Eosinophils Absolute Auto 0.2 X10*3/uL (0.0-0.4); Eosinophils Percent Auto 3.9 % (0-4); Hematocrit 45.8 % (37.0-47.0); Hemoglobin 15.3 g/dl (12.0-16.0); Imm Gran Abs Auto 0.01 X10*3/uL (0.00-0.03); Imm Gran Pct Auto 0.2 % (0.0-0.4); Lymphocytes Absolute Auto 1.5 X10*3/uL (1.2-4.9); Lymphocytes Percent Auto 24.6 % (20-40); Mean Corpuscular HGB Conc 33.4 g/dl (31.0-35.0); Mean Corpuscular Hemoglobin 29.9 pg (27.0-33.0); Mean Corpuscular Volume 89.5 fL (80.0-98.0); Mean Platelet Volume 9.3 fL (9.4-12.3); Monocytes Absolute Auto 0.7 X10*3/uL (0.1-1.2); Monocytes Percent Auto 10.9 % (2-11); Neutrophils Absolute Auto 3.6 x10*3/uL (2.0-8.3); Neutrophils Percent Auto 59.7 % (45-73); Platelet Count 207 X10*3/uL (160-400); Red Blood Count 5.12 X10*6/uL (4.20-5.50); Red Cell Distribution Width 14.2 % (11.0-16.0)
[2023-12-16 13:33] LABS: INTERNATIONAL NORM RATIO 0.9 (0.9-1.1); Prothrombin Time 11.3 SEC (11.1-13.3)
[2023-12-16 13:44] LABS: D Dimer High Sensitivity 2330 NG/ML
[2023-12-16 13:45] VITALS: BP 128/78; PULSE 145
[2023-12-16 13:45] LABS: B Type Natriuretic Peptide 85 pg/mL (<100)
[2023-12-16] MEDS: dilTIAZem HCL 50 MG/10 ML VIAL IVPUSH (13:45)
[2023-12-16 13:46] LABS: Alanine Aminotransferase 13 U/L (0-31); Albumin Level 3.6 g/dL (3.5-5.0); Alkaline Phosphatase 58 U/L (39-117); Anion Gap 11 (12-20); Aspartate Amino Transferase 15 U/L (5-31); Bilirubin Direct 0.1 mg/dL (0.0-0.5); Bilirubin Total 0.5 mg/dL (0.0-1.0); Blood Urea Nitrogen 15 mg/dL (9-16); Calcium 9.4 mg/dL (8.4-10.2); Carbon Dioxide 28 mmol/L (22-29); Chloride 108 mmol/L (96-108); Creatinine Clr Calc Pharmacy 55.8; Estimated Glomerular Filt Rate > 60; Glucose Random 102 mg/dL (60-115); Potassium 3.8 mmol/L (3.3-5.1); Sodium 143 mmol/L (135-145); Troponin-I High Sensitivity 2.9 ng/L (<3.5-17.0)
[2023-12-16 14:00] LABS: TSH reflex Free T4 1.52 uIU/mL (0.32-4.0)
[2023-12-16 14:13] LABS: Influenza A PCR NEGATIVE (Negative); Influenza B PCR NEGATIVE (Negative); Resp Syncy Virus RNA Qual PCR NEGATIVE (Negative); SARS COV2 PCR INHOUSE NEGATIVE (Negative)
[2023-12-16] MEDS: iohexoL 350 MG/ML 75 ML INFUS..BTL 65 ML IV (14:41)
[2023-12-16 15:00] VITALS: BP 143/93; PULSE 78; RESP 20; O2SAT 95
--- NOTE | 2023-12-16 15:15 | ECG_ITS ---
Test Reason : AFIB Blood Pressure : / mmHG Vent. Rate : 076 BPM Atrial Rate : 076 BPM P-R Int : 138 ms QRS Dur : 068 ms QT Int : 374 ms P-R-T Axes : 044 -38 003 degrees QTc Int : 420 ms Normal sinus rhythm Left axis deviation Minimal voltage criteria for LVH, may be normal variant ( R in aVL ) Abnormal ECG When compared with ECG of 16-DEC-2023 12:48, Sinus rhythm has replaced Atrial fibrillation Vent. rate has decreased BY [address] no longer depressed in Anterolateral leads T wave inversion no longer evident in Lateral leads Referred By: Maddie Beckwith Electronically Signed By:Nathanael Abbott
[2023-12-16 17:10] VITALS: PULSE 188
[2023-12-16 17:27] VITALS: BP 157/89; PULSE 87; RESP 18; TEMP 36.7; O2SAT 98
== END 2023-12-16 17:55 | disposition home or self-care (01) ==
PROVIDERS: Emergency Medicine; Emergency Provider Emergency Medicine; PCP Internal Medicine
DX: I48.0 Paroxysmal atrial fibrillation (principal); I49.9 Cardiac arrhythmia, unspecified; R06.02 Shortness of breath; Z87.891 Personal history of nicotine dependence; Z79.899 Other long term (current) drug therapy; Z03.818 Encounter for observation for suspected exposure to other biological agents ruled out
CPT/HCPCS: 0241U; 36415; 71045; 71275; 80048; 80076; 83735; 83880; 84443; 84484; 85025; 85379; 85610; 93005; 96374; 96376; 99285; Q9967

== ENCOUNTER → 2023-12-16 12:48 | Outpatient (BNV) | payer MEDICARE, SELFPAY | PROVIDERS: Emergency Provider Emergency Medicine; PCP Internal Medicine; Visit Provider Internal Medicine Cardiovascular Disease | DX: R94.31 Abnormal electrocardiogram [ECG] [EKG] (principal); I48.91 Unspecified atrial fibrillation | CPT/HCPCS: 93010 ==

== ENCOUNTER 2024-01-09 17:30 | Emergency (ER) | payer MEDICARE, SELFPAY ==
[2024-01-09 17:37] VITALS: BP 195/106; PULSE 83; RESP 18; TEMP 36.1; O2SAT 97; BMI 26.1
--- NOTE | 2024-01-09 17:38 | ED.GENADULT ---
HPI - General Adult General Chief complaint: General Medical Stated complaint: high blood pressure Time Seen by Provider: 01/09/24 18:56 History of Present Illness ED Provider: Aris MOCK narrative: The patient is an 78-year-old woman who was recently seen in the emergency room for a first-time episode of atrial fibrillation. She was started on metoprolol and apixaban and discharged to follow up with Cardiology. She has a 1st cardiology appointment next week. She is currently taking metoprolol 25 mg b.i.d.. During the last several days her blood pressures have been running higher than usual, sometimes as high as 170/100. She and her family became concerned about these high blood pressures and came to the emergency room for evaluation. Related Data Home Medications ?Medication ?Instructions ?Recorded ?Confirmed calcium carbonate 500 mg-vitamin 1 tab PO DAILY 04/29/22 12/06/23 D3 3.125 mcg (125 unit) tablet cholecalciferol (vitamin D3) 25 25 mcg PO DAILY 01/28/23 12/06/23 mcg (1,000 unit) capsule aspirin 81 mg tablet,delayed 81 mg PO DAILY 12/06/23 12/06/23 release Previous Rx's ?Medication ?Instructions ?Recorded umeclidinium 62.5 mcg-vilanterol 1 inh inhalation DAILY #60 ea 08/29/23 25 mcg/actuation powdr for inhalation (Anoro Ellipta) apixaban 5 mg tablet 5 mg PO BID #60 tabs 12/16/23 metoprolol tartrate 25 mg tablet 25 mg PO BID #60 tabs 12/16/23 Allergies Allergy/AdvReac Type Severity Reaction Status Date / Time No Known Allergies Allergy Verified 01/09/24 17:43 Review of Systems Review of Systems: Yes all other systems are reviewed and are negative [facility] Past Medical History Medical History Hypoxia Dyspnea Pulmonary nodules COPD (chronic obstructive pulmonary disease) Retinal tear Cataracts, bilateral Invasive ductal carcinoma of right breast, stage 1 Pulmonary embolism Surgical History History of repair of retinal tear by laser photocoagulation History of eye surgery History of lumpectomy of right breast (07/2010) Family History Family History Father No problems noted. Mother No problems noted. Paternal Aunt Lung cancer Maternal Uncle Lung cancer Maternal Aunt Lung cancer Son Colon cancer Social History Social History Household Members: None Housing: House Are you a primary housekeeper child care to a significant other at home: No Do you presently have visiting nurse or other home services: No Patient Tobacco Use Status: Former Tobacco user Tobacco use type: Cigarette Years Smoked: 25 Second Hand Smoke Exposure: No Advance Directives: No Advance Directives Information Provided: No Do you have a plan to hurt others: No Plan service: No Current occupational status: retired Physical Exam ED Vital Signs: Vital Signs - 24 hr 01/09/24 17:37 01/09/24 20:36 Temperature 97 F 97 F Pulse Rate 83 63 Respiratory Rate 18 20 Blood Pressure 195/106 H 152/75 H Pulse Oximetry 97 96 Oxygen Delivery Method Room Air Room Air BMI result Body Mass Index 26.1 Const Other: The patient is awake, alert, pleasant, cooperative. She has in no acute distress. HENMT Other: Face is symmetrical, mucous membranes moist Eyes Other: Pupils are round equal, conjunctivae are clear Neck Other: No JVD, moving her neck easily Resp Effort & Inspection: normal respiratory effort Auscultation: clear to auscultation bilaterally Cardio Rate: regular rate Rhythm: regular rhythm Heart sounds: S1 normal heart sound present and S2 normal heart sound present GI Other: Abdomen is soft and nontender Skin Other: Skin is dry and unremarkable Neuro Other: The patient is awake, alert, appropriate. Cranial nerves are grossly intact. She moves her extremities normally and seems grossly neurologically intact. Extrem Other: Mild nonpitting edema of the lower legs. Course Course Course Narrative: RME performed by Cami Atkins PA-C. Patient is an 78 year old assigned female at presenting to the emergency department with elevated blood pressure readings. Detailed physical exam and review of systems are deferred to the technical publications writer. EKG and labs ordered. Patient placed back in the waiting room pending room availability and results. Medical Decision Making Medical Decision Making MDM Narrative: The patient is an 78-year-old woman who was recently found to have a first-time episode of paroxysmal atrial fibrillation. She is on 25 mg of metoprolol twice a day and she is also on apixaban. Her blood pressures have been higher than usual over the last few days and this made her very concerned. She does not seem to have any symptoms related to hypertension. Clinically she looks very well. Her EKG is nonischemic. Labs are unremarkable. She is reassured that although her blood pressures has been running high they are not extraordinarily high. 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 She should return to the emergency room if she develops any concerning symptoms. Lab Data 01/09/24 17:52 01/09/24 17:52 Labs: Lab Results 01/09/24 Range/Units 17:52 WBC 6.4 (4.8-10.8) X10*3/uL RBC 5.19 (4.20-5.50) X10*6/uL Hgb 15.4 (12.0-16.0) g/dl Hct 46.3 (37.0-47.0) % MCV 89.2 (80.0-98.0) fL MCH 29.7 (27.0-33.0) pg MCHC 33.3 (31.0-35.0) g/dl RDW 14.2 (11.0-16.0) % Plt Count 223 (160-400) X10*3/uL MPV 9.7 (9.4-12.3) fL Immature Gran % (Auto) 0.3 (0.0-0.4) % Neut % (Auto) 53.6 (45-73) % Lymph % (Auto) 30.7 (20-40) % Bennett % (Auto) 10.7 (2-11) % Eos % (Auto) 3.6 (0-4) % Baso % (Auto) 1.1 (0-2) % Lymph # (Auto) 2.0 (1.2-4.9) X10*3/uL Bennett # (Auto) 0.7 (0.1-1.2) X10*3/uL Eos # (Auto) 0.2 (0.0-0.4) X10*3/uL Baso # (Auto) 0.1 (0.0-0.2) X10*3/uL Abs Immat Gran (auto) 0.02 (0.00-0.03) X10*3/uL Absolute Neuts (auto) 3.4 (2.0-8.3) x10*3/uL Absolute Nucleated RBC 0.000 (0.0-0.012) X10*3/uL Nucleated RBC % (auto) 0.0 (0.0-0.2) /100WBC Sodium 142 (135-145) mmol/L Potassium 3.9 (3.3-5.1) mmol/L Chloride 108 (96-108) mmol/L Carbon Dioxide 23 (22-29) mmol/L Anion Gap 15 (12-20) BUN 18 H (9-16) mg/dL Creatinine 0.85 (0.5-1.4) mg/dL Estim Creat Clear Calc 54.1 Estimated GFR > 60 Random Glucose 100 (60-115) mg/dL Calcium 9.4 (8.4-10.2) mg/dL Magnesium 2.1 (1.6-2.6) mg/dL Total Bilirubin 0.4 (0.0-1.0) mg/dL AST 18 (5-31) U/L ALT 11 (0-31) U/L Alkaline Phosphatase 58 (39-117) U/L Total Protein 7.1 (6.5-8.0) g/dL Albumin 3.9 (3.5-5.0) g/dL Independent Interpretation I performed an independent interpretation of an: EKG Interpretation: EKG at 17:42 shows normal sinus rhythm at 62 beats per minute. It is an unremarkable EKG. Discharge Plan Discharge Clinical Impression: Hypertension Patient Disposition: Home, Self-Care Additional Instructions: Although your blood pressures has been running high they are not running dangerously high. Please continue to take your current medications. You are stable until you follow up with the cardiology office next week. One piece of good news is that you are not in atrial fibrillation, you are in a normal heart rhythm. If you feel significantly worse please return to the emergency department. Prescriptions: No Action Anoro Ellipta 62.5-25 mcg/actuation blister with device 1 inh inhalation DAILY Qty: 60 11RF calcium carbonate-vitamin D3 [Calcium 500 + D (D3)] 500 mg-3.125 mcg (125 unit) Tablet 1 tab PO DAILY apixaban 5 mg tablet 5 mg PO BID Qty: 60 0RF metoprolol tartrate 25 mg tablet 25 mg PO BID Qty: 60 0RF cholecalciferol (vitamin D3) 25 mcg (1,000 unit) capsule 25 mcg PO DAILY aspirin 81 mg tablet,delayed release (DR/EC) 81 mg PO DAILY Referrals: Genaro Anderson MD [Primary Care Provider] - Bala Landrum MD [Physician] - (new paroxysmal AFib, hypertension) Interventions: ED Discharge Assessment Last Done: 01/09/24 20:36 Discharge Date/Time: 01/09/24 20:37 Print Language: Faroese
--- NOTE | 2024-01-09 17:39 | ECG_ITS ---
Test Reason : HTN Blood Pressure : / mmHG Vent. Rate : 062 BPM Atrial Rate : 062 BPM P-R Int : 136 ms QRS Dur : 076 ms QT Int : 412 ms P-R-T Axes : 037 -23 024 degrees QTc Int : 418 ms Normal sinus rhythm Normal ECG When compared with ECG of 16-DEC-2023 15:19, No significant change was found Referred By: Cami Atkins Electronically Signed By:CLAIRE JOEL MD
[2024-01-09 17:56] LABS: MANUAL DIFF FLAG NO
[2024-01-09 18:00] LABS: Basophils Absolute Auto 0.1 X10*3/uL (0.0-0.2); Basophils Percent Auto 1.1 % (0-2); Eosinophils Absolute Auto 0.2 X10*3/uL (0.0-0.4); Eosinophils Percent Auto 3.6 % (0-4); Hematocrit 46.3 % (37.0-47.0); Hemoglobin 15.4 g/dl (12.0-16.0); Imm Gran Abs Auto 0.02 X10*3/uL (0.00-0.03); Imm Gran Pct Auto 0.3 % (0.0-0.4); Lymphocytes Percent Auto 30.7 % (20-40); Mean Corpuscular HGB Conc 33.3 g/dl (31.0-35.0); Mean Corpuscular Hemoglobin 29.7 pg (27.0-33.0); Mean Corpuscular Volume 89.2 fL (80.0-98.0); Mean Platelet Volume 9.7 fL (9.4-12.3); Monocytes Absolute Auto 0.7 X10*3/uL (0.1-1.2); Monocytes Percent Auto 10.7 % (2-11); Neutrophils Absolute Auto 3.4 x10*3/uL (2.0-8.3); Neutrophils Percent Auto 53.6 % (45-73); Platelet Count 223 X10*3/uL (160-400); Red Blood Count 5.19 X10*6/uL (4.20-5.50); Red Cell Distribution Width 14.2 % (11.0-16.0); White Blood Count 6.4 X10*3/uL (4.8-10.8)
[2024-01-09 18:12] LABS: Alanine Aminotransferase 11 U/L (0-31); Albumin Level 3.9 g/dL (3.5-5.0); Alkaline Phosphatase 58 U/L (39-117); Anion Gap 15 (12-20); Aspartate Amino Transferase 18 U/L (5-31); Bilirubin Total 0.4 mg/dL (0.0-1.0); Blood Urea Nitrogen 18 mg/dL (9-16); Calcium 9.4 mg/dL (8.4-10.2); Carbon Dioxide 23 mmol/L (22-29); Chloride 108 mmol/L (96-108); Creatinine Clr Calc Pharmacy 54.1; Estimated Glomerular Filt Rate > 60; Glucose Random 100 mg/dL (60-115); Magnesium 2.1 mg/dL (1.6-2.6); Potassium 3.9 mmol/L (3.3-5.1); Sodium 142 mmol/L (135-145); Total Protein 7.1 g/dL (6.5-8.0)
[2024-01-09 20:36] VITALS: BP 152/75; PULSE 63; RESP 20; TEMP 36.1; O2SAT 96
== END 2024-01-09 20:37 | disposition home or self-care (01) ==
PROVIDERS: Physician Assistant Medical; Emergency Provider Emergency Medicine; PCP Internal Medicine
DX: I48.91 Unspecified atrial fibrillation (principal); I10 Essential (primary) hypertension; J44.9 Chronic obstructive pulmonary disease, unspecified; Z79.899 Other long term (current) drug therapy
CPT/HCPCS: 36415; 80053; 83735; 85025; 93005; 99283

== ENCOUNTER → 2024-01-09 17:39 | Outpatient (BNV) | payer MEDICARE, SELFPAY | PROVIDERS: Emergency Provider Emergency Medicine; PCP Internal Medicine; Visit Provider Internal Medicine Cardiovascular Disease | DX: I10 Essential (primary) hypertension (principal) | CPT/HCPCS: 93010 ==

== ENCOUNTER 2024-01-18 13:45 | Outpatient (AMB) | payer MEDICARE, SELFPAY ==
--- NOTE | 2024-01-18 14:10 | A.OFFVIS_ITS ---
Vital Signs 01/18/24 14:11 Height 5 ft 6 in Weight 160 lb 14.999 oz BMI 26.0 BP 132/72 Blood Pressure Location Lt brachial Position Sitting Pulse 53 Pulse Source Pulse Oximeter Intake Visit Reasons: Er- Follow up/ abd ekg Allergies No Known Allergies Allergy (Verified 01/09/24 17:43) HPI Comments Details: 78-year-old female presents as a new patient. She was seen in the emergency room on 12.16.2023 for new onset atrial fibrillation then on 01/09/2024 for hypertension. She was at a routine check up with her primary when it was noted her heart rhythm was abnormal. She had an EKG done which showed atrial fibrillation. Heart rate was noted in the 180s. She did not feel any symptoms. She was started on Eliquis and metoprolol at that time without any concerns. She has a medical history of osteopnea, breast carcionoma, COPD and she had COVID on 11/23/2023. [facility] Medical History Hypoxia Dyspnea Pulmonary nodules COPD (chronic obstructive pulmonary disease) Retinal tear Cataracts, bilateral Invasive ductal carcinoma of right breast, stage 1 Pulmonary embolism Surgical History History of repair of retinal tear by laser photocoagulation History of eye surgery History of lumpectomy of right breast (07/2010) Family History (Updated 01/18/24 @ 14:22 by Velia Sierra NP) Father Myocardial infarct Mother CHF (congestive heart failure) Paternal Aunt Lung cancer Maternal Uncle Lung cancer Maternal Aunt Lung cancer Son Colon cancer Family/Other Afib Social History Household Members: None Housing: House Are you a primary post acute care nurse practitioner to a significant other at home: No Do you presently have visiting nurse or other home services: No Patient Tobacco Use Status: Former Tobacco user Tobacco use type: Cigarette Years Smoked: 25 Second Hand Smoke Exposure: No service: No Current occupational status: retired Review of Systems Const Denies weakness ENT Denies dizziness Card Denies chest pain, Denies chest pain with activity, Denies syncope, Denies rapid heart rate, Denies pedal edema, Denies edema, Denies leg edema, Denies lightheadedness, Denies palpitations, Denies dyspnea, Denies dyspnea on exertion and Denies orthopnea Resp Denies cough, Denies dyspnea and Denies dyspnea on exertion GI Denies hematochezia and Denies change in stool character Musc Denies abnormal gait, Denies muscle cramps, Denies muscle weakness, Denies numbness, Denies radiating pain into limb and Denies tingling Neuro Denies abnormal gait, Denies dizziness, Denies syncope, Denies numbness, Denies tingling and Denies weakness Endo Denies palpitations Physical Exam Vital Signs: Last Vital Signs Pulse 53 01/18/24 14:11 BP 132/72 01/18/24 14:11 BMI result Body Mass Index 26.0 Assessment & Plan Assessment & Plan (1) Atrial fibrillation: Code(s): I48.91 - Unspecified atrial fibrillation Category: Medical Qualifiers: Atrial fibrillation type: paroxysmal Qualified Code(s): I48.0 - Paroxysmal atrial fibrillation Plan New onset atrial fibrillation noted at PCP office. Heart rate in the ED as high as 178 bpm. Asymptomatic. Triggers of atrial fibrillation discussed. Avoidance of stimulants and good sleep hygiene and stress mitigation discussed. She reports sleeping very well with no issues. Will get 3 day holter to assess rate and rhythm, stress test to assess for ischemia, and echo to assess structural changes. Reviewed signs and symptoms of bleeding. Orders: Orders ECG 3 day holter monitor 01/18/24 I48.0 - Paroxysmal atrial fibrillation CA lexiscan stress w triston 01/18/24 I48.0 - Paroxysmal atrial fibrillation CA echo transthoracic complete 01/18/24 I48.0 - Paroxysmal atrial fibrillation NM cardiolite stress test 01/18/24 I48.91 - Unspecified atrial fibrillation Coding Level of Care Code New Pt Level 3 (80001) Diagnoses Atrial fibrillation I48.0 Atrial fibrillation type: paroxysmal
[2024-01-18 14:11] VITALS: BP 132/72; PULSE 53; BMI 26.0
== END 2024-01-18 15:04 | disposition home or self-care (01) ==
PROVIDERS: PCP Internal Medicine; Visit Provider Nurse Practitioner
DX: I48.0 Paroxysmal atrial fibrillation (principal)
CPT/HCPCS: 99203

== ENCOUNTER → 2024-01-18 13:45 | Outpatient (BNVA) | payer MEDICARE, SELFPAY | PROVIDERS: PCP Internal Medicine; Visit Provider Nurse Practitioner | DX: I48.0 Paroxysmal atrial fibrillation (principal); I10 Essential (primary) hypertension; Z79.01 Long term (current) use of anticoagulants | CPT/HCPCS: 99202 ==

== ENCOUNTER → 2024-02-22 08:42 | Outpatient (REF) | payer MEDICARE, SELFPAY ==
--- NOTE | ~2024-02-22 | NM_ITS ---
Lexiscan Myocardial perfusion study Indication: Atrial fibrillation Technique: The patient was brought in for a Lexiscan perfusion study on 02/22/2024 and was injected 0.4 mg of Lexiscan intravenously. Within a minute of this injection 25 mCi of sestamibi was given intravenously. Images were obtained using the SPECT gamma camera interlaced with the gating device. Images were obtained in supine position. Resting perfusion study was performed on 02/23/2024. Patient was administered 25 mCi of sestamibi intravenously at rest. Images were then obtained in supine position. Total DLP 72 mGy-cm. Images were processed with the software and compared side to side in short axis, horizontal long axis and vertical long axis views. Findings: Raw aquisition reviewed. The stress perfusion study showed no significant perfusion abnormality. Both uncorrected as well as CT attenuation corrected images were reviewed. The gated study shows normal LV systolic function with calculated LVEF of > 70%. LV cavity is normal in size. The gated study shows normal wall thickening and contraction of segments. Resting study shows no significant perfusion abnormality. Gating at rest reveals normal wall motion with ejection fraction at 63 %. The findings are consistent with no clear reversible or fixed perfusion abnormality. NM/NM cardiolite stress test Impression: 1. Myocardial perfusion imaging study shows normal myocardial perfusion. 2. Gated LVEF is > 70% during stress; 63% during rest. 3. Transient ischemic dilatation not present. EKG component of the test reported separately. Electronically signed by: Amilcar Chairez MD 02/23/2024 03:47 PM EDT
== END ==
LOC: HO.CARD 08:42
PROVIDERS: PCP Internal Medicine; Visit Provider Nurse Practitioner
DX: I48.91 Unspecified atrial fibrillation (principal)
CPT/HCPCS: 78452; 93017; A9500; J0280; J2785

== ENCOUNTER → 2024-02-22 08:45 | Outpatient (BNV) | payer MEDICARE, SELFPAY | PROVIDERS: PCP Internal Medicine; Visit Provider Nurse Practitioner | DX: I49.1 Atrial premature depolarization (principal); I49.3 Ventricular premature depolarization | CPT/HCPCS: 78452; 93016; 93018 ==

== ENCOUNTER → 2024-02-23 09:55 | Outpatient (REF) | payer MEDICARE, SELFPAY ==
--- NOTE | 2024-02-22 08:45 | CA_ITS ---
Acquisition Time: 2024-02-22 10:10:18 Total Exercise Time: 00:02:00 Test Indications: AFIB Medications: Protocol: LEXISCAN Max HR: 104 BPM 74% of Pred: 140 BPM Max BP: 132/072 mmHG Max Work Load: 1.0 METS Pharmacogical stress test with Lexiscan injection while sitting and kciking her legs, without anignal symptoms, with isolated PACs and PVCs and ventricular bigeminy, with normotensive response to injection, with scooping noted in leads 2, 3, AVF. Nuclear images pending. Test reviewed with Dr. Landrum Referred By: Velia Sierra Overread By: Velia Sierra
--- NOTE | 2024-02-23 09:58 | HM_ITS ---
Conclusion: 1. Patient was monitored for total period of 3 days 2. Baseline was normal sinus rhythm with average heart of 65 beats per minute 3. No significant pauses noted but frequent sinus bradycardia noted with 35% of time heart rate below 60 beats per minute 4. Occasional PACs noted with 9 short runs of SVT, longest lasting 13 beats at 201 beats per minute 5. Brief episodes of atrial fibrillation lasting 50 seconds with a heart rate of 134 beats per minute, total burden of 0.02% 6. No patient reported events MTDD
--- NOTE | 2024-02-23 09:58 | CA_ITS ---
Transthoracic Echocardiogram Patient (Last, First, Middle): Yareli Schneider R Gender: Female Date of : 1945 Age: 78 Procedure Date: 02/23/2024 Procedure Type: Transthoracic Echocardiogram Location: OP Height: 167.64 cm Weight: 73.48 kg BSA: 1.83 m2 Heart Rate: bpm BP: 134 / 80 mmHg User Experience Lead: JUANIS Referring MD: Velia Sierra MANAGER SCIENTIFIC Polymerization Helper: Bala Landrum MD Symptoms: I48.0 - Paroxysmal atrial fibrillation Study Quality: Adequate ECG Rhythm: Sinus Conclusions: - 1. Normal LV systolic function with LVEF of 60-65% 2. Normal cardiac valvular Dopplers 3. Mildly elevated right ventricular systolic pressure 4. Upper limits of normal ascending aortic size 5. No gross pericardial effusion Findings Left Ventricle Normal left ventricular size, thickness, and systolic function. The visually estimated ejection fraction is between 60-65%. Spectral Doppler is indicative of a normal filling pattern. Peak GLS is -20.4%, within normal limits Right Ventricle Normal right ventricular cavity size and systolic function. Atria Both atria are normal in size. There is no evidence of interatrial shunt. Aortic Valve The aortic valve structure and function is likely normal. There is no aortic valve stenosis. There is no aortic valve regurgitation. Mitral Valve Normal mitral valve structure and function. There is trace mitral valve regurgitation. There is no mitral valve stenosis. Pulmonic Valve The pulmonic valve was not well visualized. Tricuspid Valve Normal tricuspid valve structure. There is mild tricuspid valve regurgitation. Normal right atrial pressure. Mild pulmonary hypertension is present. Great Vessels All visible segments of the aorta are normal in size. The pulmonary artery was not well visualized. There is no dilatation of the ascending aorta measuring 3.50 cm. Venous The inferior vena cava is normal in size and collapses greater than 50% with inspiration. Pericardium/Pleural There is no evidence of pericardial effusion. Prior Study Comparison Changes noted compared to prior study dated: 02/24/2023. RV systolic pressure is mildly elevated Measurements 2D Linear Measurements IVSd: 1.02 0.6-0.9/0.6-1.0 cm LVIDd: 3.59 3.9-5.3/4.2-5.9 cm LVIDd Index: 1.96 2.4-3.2/2.2-3.1 cm/m2 LVIDs: 2.24 2.0-3.6 cm LVPWd: 0.84 0.7-1.1 cm LA Diam: 3.40 2.7-3.8/3.0-4.0 cm LAIDs Index: 1.86 1.5-2.3 cm/m2 LV Mass: 120.61 67-162/88-224 g LV Mass Index: 65.90 43-95/49-115 g/m2 LVOT Diam: 2.20 3.0+(-)1.3 cm 2D Systolic Function EF 4C: 68.50 >55% EF 2C: 58.90 >55% EF BiP: 63.20 >55% Mitral Valve MV Pk E: 0.75 MV PK A: 1.03 MV Decel Time: 247.00 E/A: 0.70 E'Lateral: 7.40 E'Medial: 4.90 E/E' Med: 15.40 E/E' Lat: 10.20 PHT: 72.00 MVA PHT: 3.[address] [place]: 3.05 Aortic Valve AoV Pk Dominic: 1.28 AoV Mn Dominic: 0.88 AoV VTI: 0.30 AoV Pk Grad: 7.00 Aov Mn Grad: 3.00 PRASHANTH Cont.VTI: 2.76 LVOT LVOT Pk Dominic: 0.89 LVOT Mn Dominic: 0.54 LVOT VTI: 0.22 LVOT Pk Grad: 3.00 LVOT Mn Grad: 1.00 LVOT Diam: 2.20 LVOT Area: 3.80 Diastolic Function MV Pk E: 0.75 MV Pk A: 1.03 E/A: 0.70 E'Medial: 4.90 E/E' Med: 15.40 E' Laterial: 7.40 E/E' Lat: 10.20 Right Ventricle TAPSE (mm): 22.60 TVS' Dominic: 11.30 Tricuspid Valve TR Pk Dominic: 3.09 TR Pk Grad: 38.00 RA Press: 3.00 RVSP: 41.00 Great Vessels Aorta Sinus of Valsalva: 3.32 2.0-3.[address] [place]: 2.61 1.7-3.4 cm Ao Asc: 3.50 2.1-3.4 cm Updated in Other Vendor System with Status of Final Bala Landrum MD electronically signed on 02/23/2024 12:17:40 PM with status of Final
== END ==
LOC: HO.CARD 09:55
PROVIDERS: PCP Internal Medicine; Visit Provider Nurse Practitioner
DX: I48.0 Paroxysmal atrial fibrillation (principal)
CPT/HCPCS: 93017; 93242; 93306; 93356

== ENCOUNTER → 2024-02-23 09:58 | Outpatient (BNV) | payer MEDICARE, SELFPAY | PROVIDERS: PCP Internal Medicine; Visit Provider Internal Medicine Cardiovascular Disease | DX: I48.91 Unspecified atrial fibrillation (principal) | CPT/HCPCS: 93244; 93306; 93356 ==

== ENCOUNTER 2024-03-16 09:50 | Outpatient (AMB) | payer MEDICARE, SELFPAY ==
--- NOTE | 2024-03-16 10:07 | MHC.OFFVIS ---
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 Patient reports instability and pain of the left knee. If she is sitting for prolonged period and stands she has to international affairs vice president the same spot for a few minutes to be able to walk due to her feeling unstable. She also expresses if she lays on her left side for more than 15 minutes she has pain that radiates up and down the entire left leg on the lateral aspect. Durning ambulation she can feel something causing her discomfort and bothering the posterior aspect of her left leg. She expresses some days are better than others. She is unable to take ibuprofen so she has not tried anything for the pain. Denies past treatment to her left or right knee. Denies numbness and tingling. 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 The patient reports that she has been experiencing these symptoms for several months. The patient reports that she has been experiencing significant discomfort, particularly in the posterior aspect of the L knee. She reports that this pain worsens with prolonged standing or ambulation. The patient also reports that she needs to take a few minutes to walk after sitting for a prolonged period, as her knee gets stiff, sore, and occasionally feels unstable. The patient also reports that she has swelling, primarily in the posterior aspect of the L knee. No other acute complaints or concerns at this time. [facility] Medical History Hypoxia Dyspnea Pulmonary nodules COPD (chronic obstructive pulmonary disease) Retinal tear Cataracts, bilateral Invasive ductal carcinoma of right breast, stage 1 Pulmonary embolism Surgical History History of repair of retinal tear by laser photocoagulation History of eye surgery History of lumpectomy of right breast (07/2010) Family History Father Myocardial infarct Mother CHF (congestive heart failure) Paternal Aunt Lung cancer Maternal Uncle Lung cancer Maternal Aunt Lung cancer Son Colon cancer Family/Other Afib Social History Household Members: None Housing: House Are you a primary summer child caregiver to a significant other at home: No Do you presently have visiting nurse or other home services: No Patient Tobacco Use Status: Former Tobacco user Tobacco use type: Cigarette Years Smoked: 25 Second Hand Smoke Exposure: No service: No Current occupational status: retired Review of Systems Const All systems reviewed & are unremarkable except as noted in HPI and below Physical Exam Vital Signs: BMI result Body Mass Index 25.9 Extrem Other: On inspection, there is no visible deformity of the left knee No edema, erythema, ecchymosis noted No lacerations, abrasions, open areas No evidence of infection Patient reports tenderness to palpation of the posterior knee There is no palpable cyst in the posterior L knee no tenderness to palpation in the patella, parapatellar region, medial and lateral joint line, posterior knee Patient is able to extend the left knee to 0 degrees and flex to approximately 120 degrees without difficulty No ligamentous laxity noted Distal sensation intact Capillary refill brisk Negative Ny's Results Reviewed Results Reviewed: X rays taken on 09/07/23 and reveiwed by me demonstrate mild degenerative changes of bilateral knees. Venous duplex US taken on 09/07/23 and independently reviewed by me demonstrates no evidence of Emmanuel's cyst Assessment & Plan Assessment & Plan (1) Left knee pain: Code(s): M25.562 - Pain in left knee Category: Medical Plan 1. L knee pain Patient is informed that there is no evidence of a Emmanuel's cyst of her L knee Patient is informed that she does have some mild arthritis in her L knee Patient is offered an injection, but declines, stating that she would not like any injections at this time Patient is also offered PT, but declines PAtient is educated about the importance of activity modification, as well as conservative pain management measures Patient will follow up as needed with any acute concerns. Coding Level of Care Code New Pt Level 3 (33354) Diagnoses Left knee pain M25.562
[2024-03-16 10:08] VITALS: BMI 25.9
== END 2024-03-16 11:22 | disposition home or self-care (01) ==
PROVIDERS: PCP Internal Medicine
DX: M25.562 Pain in left knee (principal)
CPT/HCPCS: 99203

== ENCOUNTER → 2024-03-16 09:50 | Outpatient (BNVA) | payer MEDICARE, SELFPAY | PROVIDERS: PCP Internal Medicine; Visit Provider Physician Assistant | DX: M25.562 Pain in left knee (principal) | CPT/HCPCS: 99202; J1010 ==

== ENCOUNTER 2024-03-22 14:51 | Outpatient (AMB) | payer MEDICARE, SELFPAY ==
[2024-03-22 14:53] VITALS: BP 140/78; PULSE 66; BMI 26.0
--- NOTE | 2024-03-22 14:53 | MHC.OFFVIS ---
Vital Signs 03/22/24 14:53 03/22/24 15:09 Height 5 ft 6 in Weight 160 lb 14.999 oz BMI 26.0 BP 140/78 H 138/70 Blood Pressure Location Lt brachial Lt femoral Position Sitting Sitting Pulse 66 Pulse Source Pulse Oximeter Intake Visit Reasons: 2 mth f/up testing KM pt Allergies No Known Allergies Allergy (Verified 03/16/24 10:08) HPI Comments Details: 78-year-old female presents a follow-up. She was seen in the emergency room on 12.16.2023 for new onset atrial fibrillation then on 01/09/2024 for hypertension. She has a medical history of osteopnea, breast carcionoma, COPD and she had COVID on 11/23/2023. She reports she has been doing well. She has had no symptoms of atrial fibrillation. She does note that her blood pressures have been high the last week ranging from 140s-160s. Her average she reports is 120s-130s. [facility] Medical History Hypoxia Dyspnea Pulmonary nodules COPD (chronic obstructive pulmonary disease) Retinal tear Cataracts, bilateral Invasive ductal carcinoma of right breast, stage 1 Pulmonary embolism Surgical History History of repair of retinal tear by laser photocoagulation History of eye surgery History of lumpectomy of right breast (07/2010) Family History Father Myocardial infarct Mother CHF (congestive heart failure) Paternal Aunt Lung cancer Maternal Uncle Lung cancer Maternal Aunt Lung cancer Son Colon cancer Family/Other Afib Social History Household Members: None Housing: House Are you a primary long term acute care registered nurse to a significant other at home: No Do you presently have visiting nurse or other home services: No Patient Tobacco Use Status: Former Tobacco user Tobacco use type: Cigarette Years Smoked: 25 Second Hand Smoke Exposure: No service: No Current occupational status: retired Review of Systems Const Denies weakness ENT Denies dizziness Card Denies chest pain, Denies chest pain with activity, Denies syncope, Denies rapid heart rate, Denies pedal edema, Denies edema, Denies leg edema, Denies lightheadedness, Denies palpitations, Denies dyspnea, Denies dyspnea on exertion and Denies orthopnea Resp Denies cough, Denies dyspnea and Denies dyspnea on exertion GI Denies hematochezia and Denies change in stool character Musc Denies abnormal gait, Denies muscle cramps, Denies muscle weakness, Denies numbness, Denies radiating pain into limb and Denies tingling Neuro Denies abnormal gait, Denies dizziness, Denies syncope, Denies numbness, Denies tingling and Denies weakness Endo Denies palpitations Physical Exam Vital Signs: Last Vital Signs Pulse 66 03/22/24 14:53 BP 138/70 03/22/24 15:09 BMI result Body Mass Index 26.0 Const General: healthy appearing and no acute distress Orientation/consciousness: patient oriented x3 HEENT Head: Yes normal to inspection Eyes General: appearance normal, both eyes and all related structures Neck Neck: Yes normal visual inspection Chest Chest palpation & inspection: normal inspection of the chest Resp Effort & Inspection: normal respiratory effort Auscultation: clear to auscultation bilaterally Cardio Jugular venous distension: no JVD Palpation: normal PMI Rate: regular rate Rhythm: regular rhythm Heart sounds: S1 normal heart sound present, S2 normal heart sound present, no click, no gallops, no murmurs and no rubs GI Inspection: Yes normal to inspection Palpation (GI): Soft to palpation Skin General skin exam: no rashes or lesions noted Neuro General: patient oriented x3 Extrem General: Yes normal to inspection Psych Appearance: grossly normal Results Reviewed Results Reviewed: NM/NM cardiolite stress test Impression: 1. Myocardial perfusion imaging study shows normal myocardial perfusion. 2. Gated LVEF is > 70% during stress; 63% during rest. 3. Transient ischemic dilatation not present. Conclusions: - 1. Normal LV systolic function with LVEF of 60-65% 2. Normal cardiac valvular Dopplers 3. Mildly elevated right ventricular systolic pressure 4. Upper limits of normal ascending aortic size 5. No gross pericardial effusion Conclusion: 1. Patient was monitored for total period of 3 days 2. Baseline was normal sinus rhythm with average heart of 65 beats per minute 3. No significant pauses noted but frequent sinus bradycardia noted with 35% of time heart rate below 60 beats per minute 4. Occasional PACs noted with 9 short runs of SVT, longest lasting 13 beats at 201 beats per minute 5. Brief episodes of atrial fibrillation lasting 50 seconds with a heart rate of 134 beats per minute, total burden of 0.02% 6. No patient reported events Assessment & Plan Assessment & Plan (1) Atrial fibrillation: Code(s): I48.91 - Unspecified atrial fibrillation Category: Medical Qualifiers: Atrial fibrillation type: paroxysmal Qualified Code(s): I48.0 - Paroxysmal atrial fibrillation Plan: Per Holter monitor patient had brief episodes of atrial fibrillation lasting 50 seconds with a heart rate of 134 beats per minute. Total burden of 0.02%. Patient had occasional PACs with 9 short runs of SVT with longest being 13 beats at 201 beats per minute. We will have patient try increasing metoprolol to 50 mg twice a day. Asked to please keep close eye on blood pressures and heart rates in the meantime. We will call her in a few days to see how she is feeling. Nuclear imaging shows normal myocardial perfusion. Avoidance of stimulants. (2) Hypertension: Code(s): I10 - Essential (primary) hypertension Category: Medical Plan: Patient's blood pressure initially elevated on exam. Slight improvement on recheck. Blood pressure readings the last week have been elevated for 140s to 160s. Discussed sodium intake decrease. Medications: Changed From metoprolol tartrate 25 mg PO BID 60 tabs 0RF To metoprolol tartrate 50 mg PO BID 60 tabs 2RF 30 days Coding Level of Care Code Est Pt Level 2 (60881) Diagnoses Atrial fibrillation I48.0 Atrial fibrillation type: paroxysmal Hypertension I10
[2024-03-22 15:09] VITALS: BP 138/70
== END 2024-03-22 15:36 | disposition home or self-care (01) ==
PROVIDERS: PCP Internal Medicine; Visit Provider Nurse Practitioner
DX: I48.0 Paroxysmal atrial fibrillation (principal); I10 Essential (primary) hypertension
CPT/HCPCS: 99212

== ENCOUNTER → 2024-03-22 14:51 | Outpatient (BNVA) | payer MEDICARE, SELFPAY | PROVIDERS: PCP Internal Medicine; Visit Provider Nurse Practitioner | DX: I48.0 Paroxysmal atrial fibrillation (principal); I10 Essential (primary) hypertension | CPT/HCPCS: 99212 ==

== ENCOUNTER 2024-04-05 21:48 | Emergency (ER) | payer MEDICARE, SELFPAY ==
--- NOTE | 2024-04-05 | ECG_ITS ---
Test Reason : arrhythmia Blood Pressure : / mmHG Vent. Rate : 149 BPM Atrial Rate : 000 BPM P-R Int : 000 ms QRS Dur : 072 ms QT Int : 292 ms P-R-T Axes : 000 -34 040 degrees QTc Int : 459 ms Atrial fibrillation with rapid ventricular response with premature ventricular or aberrantly conducted complexes Left axis deviation Nonspecific ST and T wave abnormality Abnormal ECG When compared with ECG of 09-JAN-2024 17:42, Atrial fibrillation has replaced Sinus rhythm Vent. rate has increased BY 87 BPM Referred By: Generic ED Physician Electronically Signed By:CLAIRE JOEL MD
[2024-04-05 21:55] VITALS: BP 148/96; PULSE 113; RESP 18; TEMP 36.4; O2SAT 95; BMI 26.4
[2024-04-05 22:24] LABS: Hematocrit 43.6 % (37.0-47.0); Hemoglobin 14.6 g/dl (12.0-16.0); Mean Corpuscular HGB Conc 33.5 g/dl (31.0-35.0); Mean Corpuscular Hemoglobin 30.4 pg (27.0-33.0); Mean Corpuscular Volume 90.6 fL (80.0-98.0); Mean Platelet Volume 9.9 fL (9.4-12.3); Platelet Count 209 X10*3/uL (160-400); Red Blood Count 4.81 X10*6/uL (4.20-5.50); Red Cell Distribution Width 13.7 % (11.0-16.0); White Blood Count 7.5 X10*3/uL (4.8-10.8)
[2024-04-05 22:29] VITALS: BP 147/72; PULSE 164; RESP 22; TEMP 36.5; O2SAT 96
[2024-04-05 22:29] LABS: INTERNATIONAL NORM RATIO 0.9 (0.9-1.1); Prothrombin Time 10.9 SEC (10.9-12.4)
[2024-04-05 22:30] VITALS: PULSE 123
[2024-04-05 22:38] LABS: Alanine Aminotransferase 15 U/L (0-31); Albumin Level 3.6 g/dL (3.5-5.0); Alkaline Phosphatase 58 U/L (39-117); Anion Gap 14 (12-20); Aspartate Amino Transferase 18 U/L (5-31); Bilirubin Total 0.3 mg/dL (0.0-1.0); Blood Urea Nitrogen 17 mg/dL (9-16); Calcium 9.4 mg/dL (8.4-10.2); Carbon Dioxide 28 mmol/L (22-29); Chloride 108 mmol/L (96-108); Creatinine Clr Calc Pharmacy 48.6; Estimated Glomerular Filt Rate 57; Glucose Random 141 mg/dL (60-115); Potassium 3.7 mmol/L (3.3-5.1); Sodium 146 mmol/L (135-145); Total Protein 6.5 g/dL (6.5-8.0)
[2024-04-05 22:44] LABS: Troponin-I High Sensitivity 5.4 ng/L (<3.5-17.0)
--- NOTE | 2024-04-05 22:46 | ED_ITS ---
HPI - Arrhythmia/Palpitations General Chief Complaint: Arrhythmia/Palpitations Stated Complaint: electrical manufacturing engineer sent pt to the ER Time Seen by Provider: 04/05/24 22:46 Source: patient Mode of arrival: ambulatory Limitations: no limitations History of Present Illness ED Provider: rosaline MOCK narrative: Patient's history of paroxysmal AFib diagnose in 11/17 on Lopressor 50 mg twice daily noticed been flushed all day today at 80 20:00 noticed heart rate was 169 when she arrived her heart rate was 164 AFib patient denied any chest pain or passing out during stay in the ER her heart rate converted to normal sinus rhythm and heart rate is 85 now Related Data Home Medications ?Medication ?Instructions ?Recorded ?Confirmed calcium carbonate 500 mg-vitamin 1 tab PO DAILY 04/29/22 12/06/23 D3 3.125 mcg (125 unit) tablet cholecalciferol (vitamin D3) 25 25 mcg PO DAILY 01/28/23 12/06/23 mcg (1,000 unit) capsule Previous Rx's ?Medication ?Instructions ?Recorded umeclidinium 62.5 mcg-vilanterol 1 inh inhalation DAILY #60 ea 08/29/23 25 mcg/actuation powdr for inhalation (Anoro Ellipta) apixaban 5 mg tablet 5 mg PO BID #60 tabs 12/16/23 metoprolol tartrate 50 mg tablet 50 mg PO BID 30 days #60 tabs 03/22/24 Allergies Allergy/AdvReac Type Severity Reaction Status Date / Time No Known Allergies Allergy Verified 04/05/24 21:58 Review of Systems 2 Review of Systems: Yes all other systems are reviewed and are negative PMFSH Past Medical History Medical History Hypoxia Dyspnea Pulmonary nodules COPD (chronic obstructive pulmonary disease) Retinal tear Cataracts, bilateral Invasive ductal carcinoma of right breast, stage 1 Pulmonary embolism Surgical History History of repair of retinal tear by laser photocoagulation History of eye surgery History of lumpectomy of right breast (07/2010) Family History Family History Father Myocardial infarct Mother CHF (congestive heart failure) Paternal Aunt Lung cancer Maternal Uncle Lung cancer Maternal Aunt Lung cancer Son Colon cancer Family/Other Afib Social History Social History Household Members: None Housing: House Are you a primary child care group leader to a significant other at home: No Do you presently have visiting nurse or other home services: No Patient Tobacco Use Status: Former Tobacco user Tobacco use type: Cigarette Years Smoked: 25 Smoked in Last 30 Days: No Second Hand Smoke Exposure: No Use of substances other than those prescribed or required for medical reasons: No Advance Directives: No Advance Directives Information Provided: No service: No Current occupational status: retired Physical Exam 2 Vital Signs: Vital Signs: Last Vital Signs Temp 97.7 F 04/05/24 22:29 Pulse 85 04/06/24 00:12 Resp 19 04/06/24 00:12 BP 133/83 04/06/24 00:12 Pulse Ox 98 04/06/24 00:12 O2 Del Method Room Air 04/06/24 00:12 BMI result Body Mass Index 26.4 Appearance: Alert. Oriented X3. No acute distress. Eyes: PERRLA, No Nystagmus ENT: Pharynx normal. Oral Mucosa moist Neck: Normal inspection. Neck supple. CVS: Normal heart rate and rhythm. Pulses normal. Respiratory: No respiratory distress. Equal air entry bilateral, no wheezing/rales/rhonchi Abdomen: Soft and nontender. Bowel sounds are present, no mass palpable, no CVA tenderness Skin: Skin warm and dry. Normal skin color. Normal skin turgor. Extremities: No lower extremity edema. No calf tenderness Neuro: Oriented X 3. No motor deficit. No sensory deficit.No cerebellar signs , cranial nerves II-XII intact Medical Decision Making Medical Decision Making [facility] Narrative: Patient with rapid AFib patient is on Eliquis and metoprolol spot in his change to normal sinus rhythm after about 2 hours patient is scheduled to see a electrical manufacturing engineer this week Differential Diagnosis Differential Diagnoses: The differential diagnosis associated with the presentation includes Lab Data [facility] Lab Attestation statement: I reviewed the patient's lab results. 04/05/24 22:17 04/05/24 22:17 Labs: Lab Results 04/05/24 Range/Units 22:17 WBC 7.5 (4.8-10.8) X10*3/uL RBC 4.81 (4.20-5.50) X10*6/uL Hgb 14.6 (12.0-16.0) g/dl Hct 43.6 (37.0-47.0) % MCV 90.6 (80.0-98.0) fL MCH 30.4 (27.0-33.0) pg MCHC 33.5 (31.0-35.0) g/dl RDW 13.7 (11.0-16.0) % Plt Count 209 (160-400) X10*3/uL MPV 9.9 (9.4-12.3) fL Absolute Nucleated RBC 0.000 (0.0-0.012) X10*3/uL Nucleated RBC % (auto) 0.0 (0.0-0.2) /100WBC Hold Purple Top SEE NOTE PT 10.9 (10.9-12.4) SEC INR 0.9 (0.9-1.1) Sodium 146 H (135-145) mmol/L Potassium 3.7 (3.3-5.1) mmol/L Chloride 108 (96-108) mmol/L Carbon Dioxide 28 (22-29) mmol/L Anion Gap 14 (12-20) BUN 17 H (9-16) mg/dL Creatinine 0.95 (0.5-1.4) mg/dL Estim Creat Clear Calc 48.6 Estimated GFR 57 Random Glucose 141 H (60-115) mg/dL Calcium 9.4 (8.4-10.2) mg/dL Total Bilirubin 0.3 (0.0-1.0) mg/dL AST 18 (5-31) U/L ALT 15 (0-31) U/L Alkaline Phosphatase 58 (39-117) U/L Troponin I High Sens 5.4 D (<3.5-17.0) ng/L Total Protein 6.5 (6.5-8.0) g/dL Albumin 3.6 (3.5-5.0) g/dL Independent Interpretation I performed an independent interpretation of an: EKG Interpretation: AFib with rapid ventricular response heart rate 149 beats per minute left axis deviation no acute STT wave changes no acute ischemia Discharge Plan Discharge Clinical Impression: Paroxysmal atrial fibrillation Patient Disposition: Home, Self-Care Instructions: A-fib (Atrial Fibrillation) (ED) Additional Instructions: Continue medication as prescribed by electrical manufacturing engineer Follow up as advised May take extra 25 mg of metoprolol if have more episodes of palpitation Prescriptions: No Action Anoro Ellipta 62.5-25 mcg/actuation blister with device 1 inh inhalation DAILY Qty: 60 11RF calcium carbonate-vitamin D3 [Calcium 500 + D (D3)] 500 mg-3.125 mcg (125 unit) Tablet 1 tab PO DAILY apixaban 5 mg tablet 5 mg PO BID Qty: 60 0RF cholecalciferol (vitamin D3) 25 mcg (1,000 unit) capsule 25 mcg PO DAILY metoprolol tartrate 50 mg tablet 50 mg PO BID 30 Days Qty: 60 2RF Print Language: [place]
[2024-04-06 00:12] VITALS: BP 133/83; PULSE 85; RESP 19; O2SAT 98
[2024-04-06 00:17] VITALS: BP 133/73; PULSE 87
[2024-04-06] MEDS: Metoprolol Tartrate 50 MG TABLET PO (00:17)
[2024-04-06 00:19] VITALS: BP 133/73; PULSE 87; RESP 19; TEMP 36.8; O2SAT 98
== END 2024-04-06 00:25 | disposition home or self-care (01) ==
PROVIDERS: Emergency Provider Internal Medicine; PCP Internal Medicine
DX: I48.0 Paroxysmal atrial fibrillation (principal); I49.9 Cardiac arrhythmia, unspecified; R00.2 Palpitations; Z79.899 Other long term (current) drug therapy
CPT/HCPCS: 36415; 80053; 84484; 85027; 85610; 93005; 99283; 99285

== ENCOUNTER → 2024-04-05 22:02 | Outpatient (BNV) | payer MEDICARE, SELFPAY | PROVIDERS: Emergency Provider Internal Medicine; PCP Internal Medicine; Visit Provider Internal Medicine Cardiovascular Disease | DX: I49.9 Cardiac arrhythmia, unspecified (principal) | CPT/HCPCS: 93010 ==

== ENCOUNTER 2024-11-01 10:08 | Outpatient (AMB) | payer MEDICARE, SELFPAY ==
[2024-11-01 09:33] VITALS: BP 138/84; PULSE 72; TEMP 36.3; O2SAT 96; BMI 25.8
--- NOTE | 2024-11-01 09:33 | MHC.PC.OV ---
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 Accompanied by: Self / Same As Patient Allergies No Known Allergies Allergy (Verified 11/01/24 09:33) Tobacco use date assessed: 11/01/24 Fall risk assessment: No Falls in past year Last assessed Fall Risk: 11/01/24 Dental Screening Dental Screen Date: 11/01/24 Did you have a dental visit in the last 12 months?: Yes Did you have a dental problem in the last 6 months where you did not have access to dental care?: No HPI HPI Comments History of Present Illness Details 78-year-old female with a past medical history of atrial fibrillation, hypertension, COPD, osteopenia, breast carcinoma presenting for follow up. Last seen by pcp in May for physical. CV: Afib, htn. [place] [facility] [place] COPD following by pulmonary. On anoro Heme/Onc: history of breast cancer. Follows annually with Dr Bender right breast invasive ductal carcinoma, 0.25 cm, grade 1, ERPR positive, HER2 Tracey negative. She underwent right breast lumpectomy with sentinel node biopsy in June 2010. 0 of 2 sentinel nodes were positive for metastatic disease. TNM staging T1a N0 M0. (Stage I). She was initially started on tamoxifen but developed a pulmonary embolus and was subsequently switched to anastrozole which she took for 5 years. This was discontinued in 2016 MSK: c/o left knee and neck pain. Had cortisone shot in the knee. Pain in left posterior thigh. some varicosities left leg Colonoscopy-Jun 2017-repeat not needed if no development of symptoms ROS see HPI PHYSICAL EXAM: GENERAL: Alert and oriented x 3. NAD EYES: EOMI. Anicteric. HENT: Moist mucous membranes. No scleral icterus. No cervical lymphadenopathy. LUNGS: Clear to auscultation bilaterally. CARDIOVASCULAR: Regular rate and rhythm. No murmur. No JVD. ABDOMEN: Soft, non-tender +bs EXTREMITIES: No edema. Non-tender. SKIN: No rashes or lesions. Warm. NEUROLOGIC: No focal neurological deficits. CN II-XII grossly intact PSYCHIATRIC: Cooperative. Appropriate mood and af PFSH Medical History Hypoxia Dyspnea Pulmonary nodules COPD (chronic obstructive pulmonary disease) Retinal tear Cataracts, bilateral Invasive ductal carcinoma of right breast, stage 1 Pulmonary embolism Surgical History History of colonoscopy (~07/22/17) History of repair of retinal tear by laser photocoagulation History of eye surgery History of lumpectomy of right breast (07/2010) Family History (Updated 11/01/24 @ 10:16 by Karma Hess MA) Father Myocardial infarct Mother CHF (congestive heart failure) Paternal Aunt Lung cancer Maternal Uncle Lung cancer Maternal Aunt Lung cancer Son Colon cancer Family/Other Afib Social History Household Members: None Housing: House Are you a primary vehicle care specialist to a significant other at home: No Do you presently have visiting nurse or other home services: No Patient Tobacco Use Status: Former Tobacco user Tobacco use type: Cigarette Years Smoked: 25 Second Hand Smoke Exposure: No service: No Current occupational status: retired Cognitive needs: No Hearing needs: No Vision needs: Yes (rx glasses) Questionnaire PHQ-9 Over the last 2 weeks, how often have you been bothered by any of the following problems? 1. Little interest or pleasure in doing things: not at all 2. Feeling down, depressed, or hopeless: not at all 3. Trouble falling or staying asleep, or sleeping too much: not at all 4. Feeling tired or having little energy: not at all 5. Poor appetite or overeating: not at all 6. Feeling bad about yourself - or that you are a failure or have let yourself or your family down: not at all 7. Trouble concentrating on things, such as reading the newspaper or watching television: not at all 8. Moving or speaking so slowly that other people could have noticed. Or the opposite - being so fidgety or restless that you have been moving around a lot more than usual: not at all 9. Thoughts that you would be better off or of hurting yourself in some way: not at all Total score: 0 Depression Screening Interpretation: Negative Depression Screening Done: Yes [id number] - PHQ-9 Billing: Yes Source: Developed by Drs. Narciso Lilly, Marissa Pena, Cj Abreu and colleagues, with an educational akilah from [employer]. Thrive Questionnaire Date Thrive assessed: 11/01/24 I am a: Patient Within the past 12 months, did the food you bought not last and you didn't have the money to get more?: Never true Within the past 12 months, did you worry whether your food would run out before you got money to buy more?: Never true Do you have trouble paying for medicines?: No Do you have trouble getting transportation to medical appointments?: No Do you have trouble paying your heating and electricity bill?: No Do you have trouble taking care of your child, family member or friend?: No Do you have trouble with day-to-day activities such as bathing, preparing meals, shopping, managing finances, etc.?: No Are you currently unemployed and looking for a job?: No Are you interested in more education?: No THRIVE Score: 0 AUDIT C Alcohol Use Questionnaire (AUDIT-C) 1. How often do you have a drink containing alcohol?: Monthly or less 2. How many drinks containing alcohol do you have on a typical day when you are drinking?: 1 or 2 3. How often do you have six or more drinks on one occasion?: Less than monthly Total Score: 2 TITA-7 AMB Questionnaire TITA-7 Date TITA - 7 assessed: 11/01/24 Feeling nervous, anxious, or on edge: 0 = Not at all Not being able to stop or control worryin = Not at all Worrying too much about different things: 0 = Not at all Trouble relaxin = Not at all Being so restless that it is hard to sit still: 0 = Not at all Becoming easily annoyed or irritable: 0 = Not at all Feeling afraid as if something awful might happen: 0 = Not at all Total TITA-7 score (0-4 normal; 5-9 mild; 10-14 moderate; 15-21 severe): 0 Source: Developed by Drs. Narciso Lilly, Cj Michael and colleagues, with an educational akilah from [employer]. Physical exam (Primary Care) Vital Signs: Last Vital Signs Temp 97.4 F 11/01/24 09:33 Pulse 72 11/01/24 09:33 BP 138/84 11/01/24 09:33 Pulse Ox 96 11/01/24 09:33 Oxygen Delivery Method Room Air 11/01/24 09:33 BMI result Body Mass Index 25.8 Tobacco/Smoking Status: Tobacco use Status Tobacco use date assessed 11/01/24 11/01/24 09:35 Patient Tobacco Use Status Former Tobacco user 11/01/24 09:35 Tobacco use type Cigarette 11/01/24 09:35 PHQ-9: PHQ-9 Score PHQ-9: Total score 0 11/04/24 20:19 Depression Screening Interpretation: Negative Thrive Assessment: Date of Thrive Assessment Date Thrive assessed 11/01/24 11/01/24 09:35 Coding Level of Care Code New Pt Level 4 (62193) Diagnoses Centrilobular emphysema J43.2 COPD type: emphysema Emphysema type: centrilobular Invasive ductal carcinoma of right breast, stage 1 C50.911 Osteopenia, unspecified location M85.80 Osteopenia location: unspecified Additional Codes PHQ-9 - 93888 - PHQ-9 Billing: Yes ([id number]) Assessment & Plan Assessment & Plan (1) COPD (chronic obstructive pulmonary disease): Code(s): J44.9 - Chronic obstructive pulmonary disease, unspecified Category: Medical Qualifiers: COPD type: emphysema Emphysema type: centrilobular Qualified Code(s): J43.2 - Centrilobular emphysema (2) Invasive ductal carcinoma of right breast, stage 1: Code(s): C50.911 - Malignant neoplasm of unspecified site of right female breast Category: Medical (3) Osteopenia: Code(s): M85.80 - Other specified disorders of bone density and structure, unspecified site Category: Medical Qualifiers: Osteopenia location: unspecified Qualified Code(s): M85.80 - Other specified disorders of bone density and structure, unspecified site Plan 79 yo to establish care past medical, surgical, social reviewed htn controlled Left thigh pain-us ordered. referral vascular Orders: Orders Comprehensive Met. Panel 6 Months C50.911 - Malignant neoplasm of unspecified site of right female breast, I48.0 - Paroxysmal atrial fibrillation, J43.2 - Centrilobular emphysema Lipid Panel 6 Months C50.911 - Malignant neoplasm of unspecified site of right female breast, I48.0 - Paroxysmal atrial fibrillation, J43.2 - Centrilobular emphysema XR femur LT 2V 11/01/24 M79.652 - Pain in left thigh US venous duplex LE LT 11/01/24 M79.652 - Pain in left thigh, R60.0 - Localized edema Complete Blood Count Auto Diff 6 Months C50.911 - Malignant neoplasm of unspecified site of right female breast, I48.0 - Paroxysmal atrial fibrillation, J43.2 - Centrilobular emphysema Vitamin D 25-OH (D2 and D3) 6 Months C50.911 - Malignant neoplasm of unspecified site of right female breast, I48.0 - Paroxysmal atrial fibrillation, J43.2 - Centrilobular emphysema Referrals Vascular Surgery Referral M79.652 - Pain in left thigh, R60.0 - Localized edema Medications: New diclofenac sodium 1% (Arthritis Pain (diclofenac)) apply to posterior thigh 4 grams topical QID 100 grams 0RF
== END 2024-11-01 10:37 | disposition home or self-care (01) ==
LOC: HO.HMCHD 10:09
PROVIDERS: PCP Internal Medicine; Visit Provider Internal Medicine
DX: J43.2 Centrilobular emphysema (principal); C50.911 Malignant neoplasm of unspecified site of right female breast; M85.80 Other specified disorders of bone density and structure, unspecified site

== ENCOUNTER → 2024-11-01 10:08 | Outpatient (BNVA) | payer MEDICARE, SELFPAY | PROVIDERS: PCP Internal Medicine; Visit Provider Internal Medicine | DX: J43.2 Centrilobular emphysema (principal); C50.911 Malignant neoplasm of unspecified site of right female breast; M85.80 Other specified disorders of bone density and structure, unspecified site; I48.91 Unspecified atrial fibrillation; I10 Essential (primary) hypertension | CPT/HCPCS: 96127; 99202 ==

== ENCOUNTER 2024-11-15 09:27 | Outpatient (AMB) | payer MEDICARE, SELFPAY ==
--- NOTE | 2024-11-15 09:47 | A.OFFVIS_ITS ---
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 Field Talent Qualification Specialist Required: No Accompanied by: Self / Same As Patient Allergies No Known Allergies Allergy (Verified 11/15/24 09:51) HPI HPI BOTTOM WHEELER/PCP referral for L thigh pain/edema: Details: Yareli, a pleasant 79yo female patient, is presenting today on a referral from her PCP for concerns of lower extremity swelling and pain. Complaints include pain, swelling of lower extremities, cramping, fatigue, and heaviness of the lower extremities. It has been affecting their daily activities including walking, standing, sitting, and physical activity. It is noted more so in the left leg. She states this has been going on for >1y now, getting worse. She states she is also getting intermittent pain in the posterior mid-thigh, particularly when sitting for long periods of time; she denies anything pushing/putting pressure on it. She states she does not walk much but does not have pain with walking. She has had a Cortisone injection in the left knee in Feb, which she states helped, but the pain has since returned. She denies any concerns with her right leg. She is a former smoker, having quit >25y ago. She is not a diabetic. Patient has a hx of DVT in the left leg and PE in 2017 during tx for breast cancer. She continues on daily Eliquis. Patient denies any history of DVT/ PE. Patient denies any history of phlebitis. Trial of compression includes - elevation with no change in swelling or pain They now present for vascular evaluation regarding their varicose veins. [facility], [facility] Medical History Hypoxia Dyspnea Pulmonary nodules COPD (chronic obstructive pulmonary disease) Retinal tear Cataracts, bilateral Invasive ductal carcinoma of right breast, stage 1 Pulmonary embolism Surgical History History of colonoscopy (~07/22/17) History of repair of retinal tear by laser photocoagulation History of eye surgery History of lumpectomy of right breast (07/2010) Family History Father Myocardial infarct Mother CHF (congestive heart failure) Paternal Aunt Lung cancer Maternal Uncle Lung cancer Maternal Aunt Lung cancer Son Colon cancer Family/Other Afib Social History Household Members: None Housing: House Are you a primary janitor caretaker to a significant other at home: No Do you presently have visiting nurse or other home services: No Patient Tobacco Use Status: Former Tobacco user Tobacco use type: Cigarette Years Smoked: 25 Second Hand Smoke Exposure: No service: No Current occupational status: retired Cognitive needs: No Hearing needs: No Vision needs: Yes (rx glasses) Review of Systems Const Reports as per HPI and Denies weakness ENT Reports Normal hearing present and Denies dizziness Card Reports as per HPI, Denies chest pain, Denies chest pain at rest, Denies chest pain with activity, Denies dyspnea and Denies dyspnea on exertion Resp Reports as per HPI, Denies cough, Denies dyspnea and Denies dyspnea on exertion GI Reports as per HPI, Denies abdominal pain, Denies nausea and Denies vomiting Musc Denies numbness Skin/Breast Reports as per HPI, Denies erythema and Denies wounds Neuro Reports Normal hearing present, Denies dizziness, Denies numbness, Denies Sensory deficit (Neuro) and Denies weakness Psych Reports no additional complaints Endo Reports no additional complaints Physical Exam Vital Signs: BMI result Body Mass Index 10.2 Const General: healthy appearing and no acute distress Orientation/consciousness: patient oriented x3 HEENT Head: Yes normal to inspection Ears: hearing grossly normal bilaterally Mouth: Normal oral and palatal mucosa present Resp Effort & Inspection: normal respiratory effort and able to speak in complete sentences Auscultation: clear to auscultation bilaterally Cardio Jugular venous distension: no JVD Rate: regular rate Rhythm: regular rhythm Heart sounds: S1 normal heart sound present and S2 normal heart sound present Bruits: no abdominal aortic bruits, no carotid bruits, no femoral bruits and no renal bruits Peripheral pulses: Peripheral pulses 2+ throughout GI Inspection: Yes normal to inspection Palpation (GI): No Abdominal aortic bruit present Skin General skin exam: no rashes or lesions noted Wounds: no wounds Hair: normal Neuro General: patient oriented x3 Cranial nerves: Yes Normal hearing present Cognition (Neuro): normal cognition Gait exam (Neuro): Normal gait present Motor exam (neuro): 5/5 motor strength present throughout Sensory Exam: No Sensory deficit (Neuro) Extrem Other: Right lower extremity: trace peripheral edema noted. Small amount of telangietases noted throughout the calf. Palpable DP pulse. Left lower extremity: +2 pitting edema noted. Clusters of telangiectases noted around the ankle and all throughout the calf and distal thigh, around the knee, not painful to palpation. Discoloration noted around the ankle. Palpable DP pulse. CEAP: C - 4 E - primary A - superficial P - reflux General: Yes normal to inspection, Yes full ROM, Yes capillary refill normal and Yes normal gait Assessment & Plan Assessment & Plan (1) Varicose veins of both lower extremities with inflammation: Code(s): I83.11 - Varicose veins of right lower extremity with inflammation; I83.12 - Varicose veins of left lower extremity with inflammation Category: Medical Plan: Yareli is presenting today on a referral from her PCP for concerns on ongoing and worsening L>R lower extremity swelling and pain/discomfort. In short, the patient has evidence of venous insufficiency. I have discussed the pathophysiology with the patient. In addition I have provided informational material regarding venous disease to the patient. We have discussed conservative measures including compression, elevation, and exercise. I have also provided a handout regarding appropriate use of compression stockings and where to purchase good compression stockings as well. I have taken the liberty of ordering venous insufficiency testing with the patient. They will follow up with me after testing. The patient had an opportunity to ask questions regarding the treatment plan. All questions were answered. Imaging studies, laboratory studies and physical exam results were discussed and reviewed in detail. No major barriers to understanding were identified. The patient expressed understanding and agreement with the above treatment plan. The patient is aware they should contact our office by phone for worsening of the current condition or the appearance of new symptoms. Thank you for allowing me to participate in the vascular care of this patient. If you have any questions or concerns regarding the treatment for the above condition please do not hesitate to contact me. The office telephone contact is [phone]. This note is constructed using voice recognition software. While every effort has been made to ensure accuracy, truck trailer mechanic errors may have been included. Thank you for allowing me to participate in the care of your patient. Yours sincerely, ALTEHA Norton Orders: Orders US venous duplex LE BI 1 Week I83.11 - Varicose veins of right lower extremity with inflammation, I83.12 - Varicose veins of left lower extremity with inflammation Coding Level of Care Code New Pt Level 4 (00183) Diagnoses Varicose veins of both lower extremities with inflammation I83.11; I83.12
[2024-11-15 09:48] VITALS: BMI 10.2
== END 2024-11-15 10:32 | disposition home or self-care (01) ==
LOC: HO.HVS 09:27
PROVIDERS: PCP Internal Medicine; Visit Provider Physician Assistant Surgical
DX: I83.11 Varicose veins of right lower extremity with inflammation (principal); I83.12 Varicose veins of left lower extremity with inflammation
CPT/HCPCS: 99204

== ENCOUNTER → 2024-11-15 09:27 | Outpatient (BNVA) | payer MEDICARE, SELFPAY | PROVIDERS: PCP Internal Medicine; Visit Provider Physician Assistant Surgical | DX: I83.11 Varicose veins of right lower extremity with inflammation (principal); I83.12 Varicose veins of left lower extremity with inflammation; Z87.891 Personal history of nicotine dependence; Z86.718 Personal history of other venous thrombosis and embolism; Z79.01 Long term (current) use of anticoagulants | CPT/HCPCS: 99202 ==

== ENCOUNTER 2024-11-28 09:09 | Outpatient (AMB) | payer MEDICARE, SELFPAY ==
--- NOTE | 2024-11-28 09:15 | MHC.OFFVIS ---
Vital Signs 11/28/24 09:16 Height 5 ft 7 in Weight 163 lb 9.328 oz BMI 25.6 BP 110/70 Blood Pressure Location Lt brachial Position Sitting Pulse 67 Pulse Source Monitor Intake Visit Reasons: r/s 08/27/24 6 mos followup Intake Note: r/s-6 mth f/up Software Security Consultant Required: No Accompanied by: Self / Same As Patient Allergies No Known Allergies Allergy (Verified 11/15/24 09:51) Medication List - Last Reconciled 11/28/24 by Nathanael Abbott MD amlodipine 5 mg PO DAILY apixaban 5 mg PO BID calcium carbonate-vitamin D3 500 mg-3.125 mcg (125 unit) 1 tab PO DAILY cholecalciferol (vitamin D3) 25 mcg PO DAILY diclofenac sodium 1% (Arthritis Pain (diclofenac)) 4 grams topical QID metoprolol tartrate 50 mg PO BID 30 days umeclidinium-vilanterol 62.5-25 mcg/actuation (Anoro Ellipta) 1 inh inhalation DAILY HPI Comments Details: 79-year-old female with background history of paroxysmal atrial fibrillation, hypertension, COPD, history of invasive ductal carcinoma of the right breast and varicose veins who is here for follow-up. She had paroxysmal atrial fibrillation when she was being assessed by her primary care physician Dr. Anderson and was sent to the emergency department. She converted back to sinus rhythm and has been on metoprolol and Eliquis is then. She is denying any significant symptoms currently. She said she did not feel the atrial fibrillation. No chest discomfort. She had echocardiography and nuclear perfusion imaging which were both normal. Occasionally feels dizzy when she changes her posture. She does not drink adequate water during the day. We discussed about hydration. Taking Eliquis regularly. [facility] Medical History Hypoxia Dyspnea Pulmonary nodules COPD (chronic obstructive pulmonary disease) Retinal tear Cataracts, bilateral Invasive ductal carcinoma of right breast, stage 1 Pulmonary embolism Surgical History History of colonoscopy (~07/22/17) History of repair of retinal tear by laser photocoagulation History of eye surgery History of lumpectomy of right breast (07/2010) Family History Father Myocardial infarct Mother CHF (congestive heart failure) Paternal Aunt Lung cancer Maternal Uncle Lung cancer Maternal Aunt Lung cancer Son Colon cancer Family/Other Afib Social History Household Members: None Housing: House Are you a primary care clinician to a significant other at home: No Do you presently have visiting nurse or other home services: No Patient Tobacco Use Status: Former Tobacco user Tobacco use type: Cigarette Years Smoked: 25 Second Hand Smoke Exposure: No service: No Current occupational status: retired Cognitive needs: No Hearing needs: No Vision needs: Yes (rx glasses) Review of Systems Const Denies chills, Denies fatigue, Denies fever(s), Denies frequent falls, Denies weakness, Denies weight gain and Denies weight loss ENT Denies dizziness Card Denies chest pain, Denies leg edema, Denies lightheadedness, Denies palpitations, Denies dyspnea and Denies dyspnea on exertion Resp Denies cough, Denies dyspnea and Denies dyspnea on exertion GI Denies hematochezia Musc Denies abnormal gait, Denies muscle weakness, Denies numbness, Denies radiating pain into limb and Denies tingling Neuro Denies abnormal gait, Denies dizziness, Denies frequent falls, Denies numbness, Denies tingling and Denies weakness Endo Denies fatigue and Denies palpitations Physical Exam Vital Signs: Last Vital Signs Pulse 67 11/28/24 09:16 BP 110/70 11/28/24 09:16 BMI result Body Mass Index 25.6 GENERAL APPEARANCE: in no acute distress, pleasant. NECK: no carotid bruit, no jugular venous distention. SKIN: no suspicious lesions, warm and dry. HEART: no murmurs, regular rate and rhythm. LUNGS: Diminished breath sounds bilaterally, clear to auscultation. ABDOMEN: soft, nontender. EXTREMITIES: no edema. PERIPHERAL PULSES: equal. NEUROLOGIC: No gross deficits, AAO X 3 Assessment & Plan Assessment & Plan (1) Atrial fibrillation: Code(s): I48.91 - Unspecified atrial fibrillation Category: Medical Qualifiers: Atrial fibrillation type: paroxysmal Qualified Code(s): I48.0 - Paroxysmal atrial fibrillation Plan Pleasant 79-year-old female here for follow-up. She has background of COPD, hypertension and paroxysmal atrial fibrillation. She is currently on Eliquis for anticoagulation. EKGs in the office is showing sinus rhythm. Denying any chest discomfort or significant shortness of breath. She has known COPD and is on Anoro Ellipta. Occasional dizziness with changing her posture and I have advised her to keep herself well hydrated. Overall clinically stable. See us back in 4 months. Thank you for allowing me to participate in the care of your patient. Please feel free to contact me if you have any questions. Coding Level of Care Code Est Pt Level 4 (73339) Diagnoses Atrial fibrillation I48.0 Atrial fibrillation type: paroxysmal
[2024-11-28 09:16] VITALS: BP 110/70; PULSE 67; BMI 25.6
== END 2024-11-28 09:55 | disposition home or self-care (01) ==
PROVIDERS: PCP Internal Medicine; Visit Provider Internal Medicine Cardiovascular Disease
DX: I48.0 Paroxysmal atrial fibrillation (principal)
CPT/HCPCS: 93010; 99214

== ENCOUNTER → 2024-11-28 09:09 | Outpatient (BNVA) | payer MEDICARE, SELFPAY | PROVIDERS: PCP Internal Medicine; Visit Provider Internal Medicine Cardiovascular Disease | DX: I48.0 Paroxysmal atrial fibrillation (principal); I10 Essential (primary) hypertension; Z79.01 Long term (current) use of anticoagulants; Z87.891 Personal history of nicotine dependence | CPT/HCPCS: 93005; 99212 ==

== ENCOUNTER 2024-11-30 14:43 | Outpatient (AMB) | payer MEDICARE, SELFPAY ==
[2024-11-30 14:45] VITALS: BP 100/50; PULSE 63; O2SAT 93; BMI 26.1
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
== END 2024-11-30 15:53 | disposition home or self-care (01) ==
LOC: HO.HPS 14:44
PROVIDERS: PCP Internal Medicine; Visit Provider Hospitalist
DX: J43.2 Centrilobular emphysema (principal); R91.8 Other nonspecific abnormal finding of lung field; R06.09 Other forms of dyspnea; R09.02 Hypoxemia
CPT/HCPCS: 99214

== ENCOUNTER → 2024-11-30 14:43 | Outpatient (BNVA) | payer MEDICARE, SELFPAY | PROVIDERS: PCP Internal Medicine; Visit Provider Hospitalist | DX: J43.2 Centrilobular emphysema (principal); R91.8 Other nonspecific abnormal finding of lung field; R06.09 Other forms of dyspnea; R09.02 Hypoxemia | CPT/HCPCS: 99212 ==

== ENCOUNTER 2024-12-12 10:11 | Outpatient (REF) | payer MEDICARE, SELFPAY ==
--- NOTE | ~2024-12-12 | US_ITS ---
EXAMINATION: US LOWER EXTREMITY VENOUS (REFLUX EXAM), BILATERAL CLINICAL INFORMATION: Varices. COMPARISON: None. TECHNIQUE: Color flow triplex imaging and compression Doppler was performed to evaluate both the deep and the superficial systems bilaterally. To evaluate the superficial system, the examination was performed in the upright position. Color-flow Doppler ultrasound and compression ultrasound were utilized. In addition, maneuvers were utilized to demonstrate reflux. FINDINGS: 1. DEEP VENOUS ULTRASOUND OF THE RIGHT LOWER EXTREMITY: Common Femoral Vein: Compressible, normal respiratory variation and augmented flow. Femoral Vein: Compressible, normal color flow and augmentation. Popliteal Vein: Compressible, normal augmentation. Deep Reflux: There is no evidence of reflux in the deep system in either the common femoral vein, superficial femoral or the popliteal vein. There is a 3 cm anechoic abnormality in the popliteal fossa without flow on color Doppler interrogation. 2. SUPERFICIAL ULTRASOUND WITH DOPPLER OF RIGHT LOWER EXTREMITY: GREAT SAPHENOUS VEIN: Saphenofemoral Junction: 1.0 cm; Reflux: 0 ms Proximal Thigh: 0.6 cm; Reflux: 0 ms Mid Thigh: 0.4 cm; Reflux: 0 ms Distal Thigh: 0.4 cm; Reflux: 0 ms At Knee: 0.7 cm; Reflux: 0 ms Proximal Calf: 0.3 cm; Reflux: 2432 ms Mid Calf: 0.2 cm; Reflux: 2360 ms Distal Calf: 0.4 cm; Reflux: 2524 ms DUPLICATED MEDIAL GREAT SAPHENOUS VEIN: Diameter: None imaged Reflux: NA DUPLICATED LATERAL GREAT SAPHENOUS VEIN: Diameter: 0.4 cm. Reflux: NA SMALL SAPHENOUS VEIN: Saphenopopliteal Junction: 0.1 cm; Reflux: 0 ms Proximal: 0.3 cm; Reflux: 0 ms Distal: 0.3 cm; Reflux: 0 ms VEIN OF GIACOMINI: Size: 0.3 cm. Reflux: NA PERFORATORS: Location: Small saphenous vein mid segment. Mid to distal calf and heel. Size: 0.1-0.3 cm. Reflux: 2836 ms at the heel. VARICOSITIES: Location: Mid thigh. Size: 0.3 cm. Reflux: NA 3. DEEP VENOUS ULTRASOUND OF THE LEFT LOWER EXTREMITY: Common Femoral Vein: Compressible, normal respiratory variation and augmented flow. Femoral Vein: Compressible, normal color flow and augmentation. Popliteal Vein: Compressible, normal augmentation. Deep Reflux: 2020 ms in the mid femoral vein and 2432 ms in the popliteal vein. There is a 4 cm anechoic abnormality in the popliteal fossa without flow on color Doppler interrogation with internal echoes. 4. SUPERFICIAL ULTRASOUND WITH DOPPLER OF LEFT LOWER EXTREMITY: GREAT SAPHENOUS VEIN: Saphenofemoral Junction: 1.1 cm; Reflux: 0 ms Proximal Thigh: 0.7 cm; Reflux: 0 ms Mid Thigh: 0.5 cm; Reflux: 0 ms Distal Thigh: 0.5 cm; Reflux: 0 ms At Knee: 0.4 cm; Reflux: 0 ms Proximal Calf: 0.2 cm; Reflux: 0 ms Mid Calf: 0.1 cm; Reflux: 0 ms Distal Calf: 0.2 cm; Reflux: 0 ms DUPLICATED MEDIAL GREAT SAPHENOUS VEIN: Diameter: None imaged Reflux: NA DUPLICATED LATERAL GREAT SAPHENOUS VEIN: Diameter: 0.4 cm. Reflux: NA SMALL SAPHENOUS VEIN: Saphenopopliteal Junction: 0.3 cm; Reflux: 0 ms Proximal: 0.2 cm; Reflux: 0 ms Distal: 0.3 cm; Reflux: 0 ms VEIN OF GIACOMINI: Size: 0.2 cm. Reflux: NA PERFORATORS: Location: Small saphenous vein, mid segment. Mid thigh. Proximal, mid calf and heel. Size: 0.2-0.5 cm. Reflux: 868 ms at the heel. VARICOSITIES: Location: Accessory saphenous vein proximal segment. Proximal thigh to the mid calf. Size: 0.3-0.7 cm. Reflux: 1016 ms in the mid calf. US/US venous duplex LE BI IMPRESSION: Right: Venous insufficiency, great saphenous vein from below the knee to the ankle. Varices without reflux in the mid thigh. Perforators with reflux in the heel. 3 cm popliteal cyst. Left: Venous reflux in the deep system involving mid femoral vein and popliteal vein. Varices with reflux in the mid calf. Perforators with reflux in the heel. 4 cm complex popliteal cyst. Electronically signed by: Dannie Elizabeth MD 12/12/2024 11:27 AM EDT
== END 2024-12-12 10:12 | disposition home or self-care (01) ==
LOC: HO.US 10:11
PROVIDERS: PCP Internal Medicine; Visit Provider Physician Assistant Surgical
DX: I83.11 Varicose veins of right lower extremity with inflammation (principal); I83.12 Varicose veins of left lower extremity with inflammation
CPT/HCPCS: 93970

== ENCOUNTER → 2024-12-12 10:13 | Outpatient (BNV) | payer MEDICARE, SELFPAY | PROVIDERS: PCP Internal Medicine; Visit Provider Radiology Diagnostic Radiology | DX: I83.11 Varicose veins of right lower extremity with inflammation (principal) | CPT/HCPCS: 93970 ==

== ENCOUNTER 2024-12-14 10:13 | Outpatient (REF) | payer MEDICARE, SELFPAY ==
--- NOTE | ~2024-12-14 | MM_ITS ---
EXAMINATION: MM SCREENING DIGITAL BREAST TOMOSYNTHESIS, BILATERAL CLINICAL INFORMATION: Screening. Asymptomatic. COMPARISON: Mammography: Comparison is made with available priors TECHNIQUE: Digital breast mammography with tomosynthesis is performed in both the craniocaudal and mediolateral oblique views along with computer-aided detection (CAD). FINDINGS: There are scattered areas of fibroglandular density (ACR BI-RADS breast composition Category b). Left: There are no significant masses, abnormal calcifications, or other abnormalities. Right: Postoperative changes in the upper outer right breast posterior depth are stable. There is a new asymmetry in the medial right breast posterior depth on CC view. No suspicious calcifications or other abnormal findings. MM/MM tomosynthesis screening BI IMPRESSION: Additional imaging is recommended ASSESSMENT: BI-RADS BI-RADS 0 - Incomplete: Needs additional Imaging. RECOMMENDATION: 1. Additional views of the right breast. 2. Targeted ultrasound if warranted after review of the additional views. 3. Radiology department staff will contact the patient for additional imaging. Additional Imaging required This examination should not preclude the clinical evaluation of a suspicious palpable abnormality. This patient's information was entered into a reminder system with a target due date for their next mammogram. Electronically signed by: Paola Wang DO 12/20/2024 12:53 PM EDT
== END 2024-12-14 10:14 | disposition home or self-care (01) ==
LOC: HO.MAMMO 10:13
PROVIDERS: PCP Internal Medicine; Visit Provider Internal Medicine
DX: Z12.31 Encounter for screening mammogram for malignant neoplasm of breast (principal); R92.8 Other abnormal and inconclusive findings on diagnostic imaging of breast; Z98.890 Other specified postprocedural states
CPT/HCPCS: 77063; 77067

== ENCOUNTER → 2024-12-14 10:30 | Outpatient (BNV) | payer MEDICARE, SELFPAY | PROVIDERS: PCP Internal Medicine; Visit Provider Internal Medicine | DX: Z12.31 Encounter for screening mammogram for malignant neoplasm of breast (principal) | CPT/HCPCS: 77063; 77067 ==

== ENCOUNTER 2024-12-18 09:53 | Outpatient (AMB) | payer MEDICARE, SELFPAY ==
--- NOTE | 2024-12-18 09:56 | MHC.OFFVIS ---
Vital Signs 12/18/24 10:05 Height 5 ft 7 in Weight 164 lb 6 oz BMI 25.7 BP 141/82 H Blood Pressure Location Lt brachial Position Sitting Pulse 82 Intake Visit Reasons: Annual Breast Exam Intake Note: Patient is seen in office for yearly breast exam. Pt c/o: denies any concerns regarding the breast mm: 12/14/24 Occupancy Specialist Required: No Environmental Services Associate: Environmental Services Associate Present Accompanied by: Self / Same As Patient Allergies No Known Allergies Allergy (Verified 12/18/24 10:04) HPI Comments Details: Yareli Schneider is a 78-year-old female patient, former patient of Dr. Jimenez returning for a yearly examination for right breast cancer. 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 She underwent right breast lumpectomy with sentinel node biopsy in June 2010. 0 of 2 sentinel nodes were positive for metastatic disease. TNM staging T1a N0 M0. (Stage I). She was initially started on tamoxifen but developed a pulmonary embolus and was subsequently switched to anastrozole which she took for 5 years. This was discontinued in 2016. Screening mammogram performed on 12/09/2023 revealed no mammographic evidence of malignancy (BI-RADS 2). She underwent a yearly mammogram on 12/14/2024 however the study has not been read at the time of this dictation. [facility] Medical History Hypoxia Dyspnea Pulmonary nodules COPD (chronic obstructive pulmonary disease) Retinal tear Cataracts, bilateral Invasive ductal carcinoma of right breast, stage 1 Pulmonary embolism Surgical History History of colonoscopy (~07/22/17) History of repair of retinal tear by laser photocoagulation History of eye surgery History of lumpectomy of right breast (07/2010) Family History Father Myocardial infarct Mother CHF (congestive heart failure) Paternal Aunt Lung cancer Maternal Uncle Lung cancer Maternal Aunt Lung cancer Son Colon cancer Family/Other Afib Social History Household Members: None Housing: House Are you a primary lawn care worker to a significant other at home: No Do you presently have visiting nurse or other home services: No Patient Tobacco Use Status: Former Tobacco user Tobacco use type: Cigarette Years Smoked: 25 Second Hand Smoke Exposure: No service: No Current occupational status: retired Cognitive needs: No Hearing needs: No Vision needs: Yes (rx glasses) Review of Systems Const All systems reviewed & are unremarkable except as noted in HPI and below Card Denies dyspnea Resp Denies chest congestion, Denies cough and Denies dyspnea GI Reports no additional complaints Denies nipple discharge Skin/Breast Denies breast swelling, Denies breast skin changes, Reports breast pain, Reports breast mass, Denies change in breast shape and Denies nipple discharge Jake/Lymph Denies lymphadenopathy Physical Exam Const General: cooperative, healthy appearing, comfortable, no acute distress and well developed Neck Lymphatic: lymphadenopathy not noted Chest Other: Left breast: No skin change, no nipple retraction, no nipple discharge, no palpable mass, no enlarged lymph nodes. Right breast: No new skin change, well-healed incision in the lower outer quadrant, no nipple retraction, no nipple discharge, no palpable mass, no enlarged lymph nodes Resp Effort & Inspection: normal respiratory effort, no cough, no stridor and not tachypneic Skin Other: Warm, dry, no rash Neuro Other: Mobility Assessment: 1. 3 meter assessment time (seconds) 6 2. Gait observations: Normal balance and gait Extrem General: Yes no clubbing, cyanosis or edema Assessment & Plan Assessment & Plan (1) Invasive ductal carcinoma of right breast, stage 1: Code(s): C50.911 - Malignant neoplasm of unspecified site of right female breast Category: Medical Plan: 79-year-old female patient with history of right breast infiltrating ductal carcinoma grade 1, ER [place] positive HER2 Tracey negative status post lumpectomy, sentinel node biopsy June 2010, with 0 of 2 sentinel nodes with metastatic disease, status post radiation therapy completed in July 2010. She returns today for a yearly breast examination. Examination today reveals a well-healed incision in the right breast at the outer lower quadrant with no palpable density, skin change, nipple change, nipple discharge, or enlarged lymph node. Left breast is normal as well. There is no evidence of recurrence disease at this time. Her mammogram of 12/09/2023 revealed no mammographic evidence of malignancy (BI-RADS 2). She underwent annual screening on 12/14/2024 however the results are not available at the time of this dictation. I will inform her of the results once available. I recommended follow-up examination in 1 year, sooner PRN. Coding Level of Care Code Est Pt Level 3 (29349) Complex EM visit Add On G2211 Diagnoses Invasive ductal carcinoma of right breast, stage 1 C50.911
[2024-12-18 10:05] VITALS: BP 141/82; PULSE 82; BMI 25.7
--- OUTSIDE RECORDS SUMMARY | 2024-12-18 10:50 | XMS_ITS | Patient Health Record ---
Author Organization [facility] Address [address] [place] [address] Care Team Providers Care Promotional Marketing Agent Name Role Phone Genaro Anderson MD Primary Care Provider Jamal Escobar Jr Unavailable [phone] Reason For Referral No Information Medications Medication SIG (Take, Route, Frequency, Duration) Notes Start Date End Date Status Colyte with Flavor Packs 240 GM As directed Orally Over the specified time. for 1 day(s) 06/02/2016 Active Aspir-81 81 MG 1 tablet Orally Once a day Active Anastrozole 1 MG 1 tablet Orally Once a day Active Immunizations Vaccine Route Administration Date Status Comme nts Flu vaccine no Preserv 3 and > Unknown 04/06/2016 Admin istered Problems Problem Type SNOMED Code ICD Code Onset Dates Problem Status W/U Status Risk Notes Problem 791223836 Colon cancer screening (Z12.11) Active confirmed Problem 19663321 Hypertension (I10) Active confirmed Problem [id number] Long-term use of aspirin therapy (Z79.82) Active confirmed Plan Of Treatment Future Test Test Name Order Date COLONOSCOPY 06/02/2016 Insurance Providers Payer Name Payer Address Payer Phone Subscriber Number Group Number Insured Name Patient Relationship to Insured Coverage Start Date Coverage End Date MEDICARE OF [place] [address] [place] [address] [phone] [id number] SUNDEEP MCCORMACK Self - patient is the insured MED[employer] ATTN CLAIMS [address] [place] [address] [id number] SUNDEEP MCCORMACK Self - patient is the insured Medical (General) History Medical History History ICD Code colonoscopy 03-21-2009 colon polyp spontaneoius Pneumothorax Denies NC,DM,CVA,Lung disease,renal dise ase breast cancer Surgical History Surgery Date(Month/Year) lumpectomy, right breast lung surgery due to a collapsed lung
== END 2024-12-18 10:18 | disposition home or self-care (01) ==
LOC: HO.HGS 09:53
PROVIDERS: PCP Internal Medicine; Visit Provider Surgery
DX: C50.911 Malignant neoplasm of unspecified site of right female breast (principal)
CPT/HCPCS: 99213; G2211

== ENCOUNTER → 2024-12-18 09:53 | Outpatient (BNVA) | payer MEDICARE, SELFPAY | PROVIDERS: PCP Internal Medicine; Visit Provider Surgery | DX: Z85.3 Personal history of malignant neoplasm of breast (principal) | CPT/HCPCS: 99212 ==

== ENCOUNTER 2025-01-01 12:43 | Outpatient (AMB) | payer MEDICARE, SELFPAY ==
--- NOTE | 2025-01-01 12:53 | MHC.OFFVIS ---
Vital Signs 01/01/25 12:54 Height 5 ft 7 in Weight 164 lb BMI 25.7 Intake Visit Reasons: follow up s/p 12/12/24 Intake Note: follow up 12/12/24 for Left LE swelling and veins, Pt states that she has been wearing compression socks when on her feet. Swelling reduces overnight. Tax Processor Required: No Accompanied by: Self / Same As Patient Allergies No Known Allergies Allergy (Verified 01/01/25 13:06) HPI HPI follow up s/p 12/12/24: Details: The patient is an 79-year-old female presenting for follow-up regarding venous insufficiency testing. She has a prior history of deep vein thrombosis (DVT) in the left lower extremity and a pulmonary embolism (PE) that was treated in 2017 during her treatment for breast cancer. The DVT and PE were associated with her breast cancer treatment, specifically the use of tamoxifen, which is known to increase the risk of thromboembolic events. Currently, she experiences intermittent swelling in her legs, more pronounced in the left leg, which is also affected by tendinitis. The left leg was previously affected by DVT, which has impacted the venous valves, affecting blood return to the heart. She is on Eliquis for anticoagulation, which provides protection against further thromboembolic events. She now presents for follow-up with venous insufficiency testing [facility] Medical History Hypoxia Dyspnea Pulmonary nodules COPD (chronic obstructive pulmonary disease) Retinal tear Cataracts, bilateral Invasive ductal carcinoma of right breast, stage 1 Pulmonary embolism Surgical History History of colonoscopy (~07/22/17) History of repair of retinal tear by laser photocoagulation History of eye surgery History of lumpectomy of right breast (07/2010) Family History Father Myocardial infarct Mother CHF (congestive heart failure) Paternal Aunt Lung cancer Maternal Uncle Lung cancer Maternal Aunt Lung cancer Son Colon cancer Family/Other Afib Social History Household Members: None Housing: House Are you a primary cattle care worker to a significant other at home: No Do you presently have visiting nurse or other home services: No Patient Tobacco Use Status: Former Tobacco user Tobacco use type: Cigarette Years Smoked: 25 Second Hand Smoke Exposure: No service: No Current occupational status: retired Cognitive needs: No Hearing needs: No Vision needs: Yes (rx glasses) Review of Systems Const All systems reviewed & are unremarkable except as noted in HPI and below Reports no additional complaints ENT Reports Normal hearing present Card Denies chest pain, Denies chest pain at rest, Denies chest pain with activity and Denies pedal edema Resp Denies cough GI Denies abdominal pain Musc Denies abnormal gait, Denies muscle cramps and Denies radiating pain into limb Skin/Breast Denies skin ulcer and Denies wounds Neuro Reports Normal hearing present and Denies abnormal gait Psych Reports no additional complaints Physical Exam Vital Signs: BMI result Body Mass Index 25.7 Const General: cooperative, healthy appearing and comfortable Orientation/consciousness: oriented to person, oriented to place and oriented to time HEENT Head: Yes normal to inspection Neck Neck: Yes normal visual inspection Carotids: no bruits Chest Chest palpation & inspection: normal inspection of the chest Resp Effort & Inspection: normal respiratory effort and able to speak in complete sentences Auscultation: clear to auscultation bilaterally, no crackles, no rales, no rhonchi and no wheezes Cardio Rate: regular rate Rhythm: regular rhythm Heart sounds: S1 normal heart sound present and S2 normal heart sound present Bruits: no carotid bruits Peripheral pulses: Peripheral pulses 2+ throughout GI Inspection: Yes normal to inspection Skin Wounds: no wounds Hair: normal Neuro General: oriented to person, oriented to place and oriented to time Cranial nerves: Yes CN's II-XII intact bilaterally and Yes Normal hearing present Cognition (Neuro): normal cognition Motor exam (neuro): 5/5 motor strength present throughout Extrem Other: venous exam: +2 edema left greater than right General: No clubbing, No cyanosis and Yes edema Psych Appearance: grossly normal Mental Status: mental status grossly normal Speech and movement: Normal speech and movement present Results Reviewed Results Reviewed: Brief summary of venous insufficiency testing is as follows: right great saphenous vein: Focally positive at right calf right small saphenous vein: negative right accessory vein: none present left great saphenous vein: negative left small saphenous vein: negative left accessory vein: none present Please note there is no evidence of any venous aneurysms or significant tortuosity Assessment & Plan Assessment & Plan (1) Varicose veins of both lower extremities with inflammation: Code(s): I83.11 - Varicose veins of right lower extremity with inflammation; I83.12 - Varicose veins of left lower extremity with inflammation Category: Medical Plan: I discussed with the patient that her ultrasound results showed no significant findings that would require surgical intervention. We talked about the importance of using compression stockings and elevating her legs to manage her symptoms. I reassured her that her current anticoagulation therapy with Eliquis is effective in preventing further blood clots. We also discussed the benefits of regular walking and calf exercises to improve circulation. I advised her to return for follow-up if she experiences new symptoms or concerns. Thank you for allowing us to participate in her care. If there are any questions or concerns please do not hesitate to contact us. Plan Patient was informed and verbally consented to the use of an ambient scribe for clinic note documentation during this visit. Patient Instructions: - Wear compression stockings when active or standing for long periods. - Elevate legs when resting to reduce swelling. - Continue taking Eliquis as prescribed. - Engage in regular walking and calf exercises to improve circulation. - Return for follow-up if new symptoms or concerns arise. Coding Level of Care Code Est Pt Level 4 (23471) Diagnoses Varicose veins of both lower extremities with inflammation I83.11; I83.12
[2025-01-01 12:54] VITALS: BMI 25.7
--- OUTSIDE RECORDS SUMMARY | 2025-01-01 13:25 | XMS_ITS | Patient Health Record ---
Author Organization [facility] Address [address] [place] [address] Care Team Providers Care Erp Implementation Consultant Name Role Phone Genaro Anderson MD Primary Care Provider Jamal Escobar Jr Unavailable [phone] Reason For Referral No Information Medications Medication [...] Problem Status W/U Status Risk Notes Problem [id number] Colon cancer screening (Z12.11) Active confirmed Problem 35610430 Hypertension (I10) Active confirmed Problem 802130482 Long-term use of aspirin therapy (Z79.82) Active confirmed Plan Of Treatment Future Test Test Name Order Date COLONOSCOPY 06/02/2016 Insurance Providers Payer Name Payer Address Payer Phone Subscriber Number Group Number Insured Name Patient Relationship to Insured Coverage Start Date Coverage End Date MED[place]ARE OF [place] [address] [place] [address] [id number] SUNDEEP MCCORMACK Self - patient is the insured MED[employer] ATTN CLAIMS [address] [place] [address] [id number] SUNDEEP MCCORMACK Self - patient is the insured Medical (General) History Medical History History ICD Code colonoscopy 03-21-2009 colon polyp spontaneoius Pneumothorax Denies HI,DM,CVA,Lung disease,renal dise ase breast cancer Surgical History Surgery Date(Month/Year) lumpectomy, right breast lung surgery due to a collapsed lung
== END 2025-01-01 13:36 | disposition home or self-care (01) ==
LOC: HO.HVS 12:43
PROVIDERS: PCP Internal Medicine; Visit Provider Surgery Vascular Surgery
DX: I83.11 Varicose veins of right lower extremity with inflammation (principal); I83.12 Varicose veins of left lower extremity with inflammation
CPT/HCPCS: 99214

== ENCOUNTER → 2025-01-01 12:43 | Outpatient (BNVA) | payer MEDICARE, SELFPAY | PROVIDERS: PCP Internal Medicine; Visit Provider Surgery Vascular Surgery | DX: I83.11 Varicose veins of right lower extremity with inflammation (principal); I83.12 Varicose veins of left lower extremity with inflammation | CPT/HCPCS: 99212 ==

== ENCOUNTER 2025-01-31 13:44 | Outpatient (REF) | payer MEDICARE, SELFPAY ==
--- NOTE | ~2025-01-31 | US_ITS ---
EXAMINATION: MM DIAGNOSTIC DIGITAL BREAST TOMOSYNTHESIS, RIGHT Limited right breast ultrasound. CLINICAL INFORMATION: Call back from screening for asymmetry in the medial right breast on CC view. History of right breast cancer status post lumpectomy. COMPARISON: Mammography: Comparison is made with relevant prior exams. TECHNIQUE: Digital breast mammography with tomosynthesis is performed in both the craniocaudal and mediolateral oblique views along with computer-aided detection (CAD). FINDINGS: There are scattered areas of fibroglandular density (ACR BI-RADS breast composition Category b). Asymmetry in the medial right breast on CC view partially effaces on additional imaging projections. No suspicious calcifications or other abnormal findings. Postsurgical changes in the upper outer quadrant from lumpectomy are stable. Targeted color Doppler ultrasound scanning in the medial right breast from 1-5 o'clock demonstrates normal follicular breast tissue. There is no sonographic abnormal finding. Results are provided to the patient at time of visit by the technologist. US/US breast RT limited mamm only IMPRESSION: Asymmetry medial right breast on CC view which partially effaces and without sonographic correlate. Probably benign. Recommend six-month follow-up mammography for further evaluation of stability. ASSESSMENT: BI-RADS BI-RADS 3 - Probably benign finding(s) - 6 month follow-up suggested RECOMMENDATION: 6 Month F/U This patient's information was entered into a reminder system with a target due date for their next mammogram. Electronically signed by: Paola Wang DO 01/31/2025 02:29 PM EDT Workstation: [id number]
--- OUTSIDE RECORDS SUMMARY | 2025-01-31 13:49 | XMS_ITS | Patient Health Record ---
Author Organization [facility] Address [address] [place] [address] Care Team Providers Care Trust Vault Custodian Name Role Phone Justin (RETIRED) Genaro GRAMAJO Primary Care Provide r Jamal Easton Jr Unavailable [phone] Reason For Referral No Information Medications Medication [...] Problem Status W/U Status Risk Notes Problem [id number] Colon cancer screening (Z12.11) Active confirmed Problem 45841295 Hypertension (I10) Active confirmed Problem 443013924 Long-term use of aspirin therapy (Z79.82) Active confirmed Plan Of Treatment Future Test Test Name Order Date COLONOSCOPY 06/02/2016 Insurance Providers Payer Name Payer Address Payer Phone Subscriber Number Group Number Insured Name Patient Relationship to Insured Coverage Start Date Coverage End Date MEDICARE OF [place] [address] [place] [address] [id number] SUNDEEP MCCORMACK Self - patient is the insured MED[employer] ATTN CLAIMS [address] [place] [address] [id number] SUNDEEP MCCORMACK Self - patient is the insured Medical (General) History Medical History History ICD Code colonoscopy 03-21-2009 colon polyp spontaneoius Pneumothorax Denies CT,DM,CVA,Lung disease,renal dise ase breast cancer Surgical History Surgery Date(Month/Year) lumpectomy, right breast lung surgery due to a collapsed lung
== END 2025-01-31 13:45 | disposition home or self-care (01) ==
LOC: HO.MAMMO 13:44
PROVIDERS: PCP Internal Medicine; Visit Provider Internal Medicine
DX: Z12.31 Encounter for screening mammogram for malignant neoplasm of breast (principal); Z85.3 Personal history of malignant neoplasm of breast
CPT/HCPCS: 76642; 77063; 77067

== ENCOUNTER → 2025-01-31 14:00 | Outpatient (BNV) | payer MEDICARE, SELFPAY | PROVIDERS: PCP Internal Medicine; Visit Provider Internal Medicine | DX: Z12.31 Encounter for screening mammogram for malignant neoplasm of breast (principal); R92.8 Other abnormal and inconclusive findings on diagnostic imaging of breast | CPT/HCPCS: 76642; 77063; 77067 ==

== ENCOUNTER 2025-02-28 10:45 | Outpatient (AMB) | payer MEDICARE, SELFPAY ==
--- NOTE | 2025-02-28 10:48 | MHC.PC.OV ---
Vital Signs 02/28/25 10:53 Height 5 ft 7 in Weight 165 lb BMI 25.8 BP 126/68 Blood Pressure Location Lt brachial Position Sitting Respiration 16 Pulse 92 Pulse Source Pulse Oximeter Temp 97.7 F Temp Source Temporal Artery Scan Pulse Oximetry (%) 98 Oxygen Delivery Method Room Air Intake Visit Reasons: Routine / Dr Anderson Director Call Center Sales Required: No Accompanied by: Self / Same As Patient Allergies No Known Allergies Allergy (Verified 02/28/25 10:49) Tobacco use date assessed: 11/01/24 Fall risk assessment: No Falls in past year Last assessed Fall Risk: 02/28/25 Dental Screening Dental Screen Date: 11/01/24 HPI HPI Comments History of Present Illness Details The patient is an 79-year-old female presenting with recurring head pain. She initially reported this symptom during a previous visit in the first week of May. She described the pain as occurring at the back of the head on the left side, spreading upwards, and lasting for 5-10 minutes. The pain occurs 3-4 times daily, varying throughout the day, and although not intensely painful, it is bothersome. The sensation is stabbing, rated by the patient as a 5 out of 10 in severity, without associated symptoms such as nausea or vomiting. The episodes have progressively become a concern as they persist daily for nearly a year. The patient denied any associated trauma, falls, or muscle pulls. She linked the onset to her COVID-19 infection in October of the previous year. She hypothesized potential effects from earwax buildup on her symptoms, but no direct cause has been identified. Medical History: - Hypertension - Atrial Fibrillation - Chronic Obstructive Pulmonary Disease (COPD) - Previous earwax buildup - History of COVID-19 infection in October of last year Surgical History: - Basal cell carcinoma removed from skin lesions (dermatology intervention, unspecified date) Medications: - Amlodipine for hypertension - Eliquis for atrial fibrillation - Metoprolol for atrial fibrillation - Hemoclininium for COPD Family History: Family history not discussed. Social: - Former smoker, quit 30 years ago - Use of compression socks for leg swelling - Reports compliance with prescribed inhaler usage ON LICENSE OF [facility] Medical History (Updated 02/28/25 @ 11:41 by Buster Maldonado MD) Headache Hypoxia Dyspnea Pulmonary nodules COPD (chronic obstructive pulmonary disease) Retinal tear Cataracts, bilateral Invasive ductal carcinoma of right breast, stage 1 Pulmonary embolism Surgical History History of colonoscopy (~07/22/17) History of repair of retinal tear by laser photocoagulation History of eye surgery History of lumpectomy of right breast (07/2010) Family History Father Myocardial infarct Mother CHF (congestive heart failure) Paternal Aunt Lung cancer Maternal Uncle Lung cancer Maternal Aunt Lung cancer Son Colon cancer Family/Other Afib Social History Household Members: None Housing: House Are you a primary outdoor emergency care technician to a significant other at home: No Do you presently have visiting nurse or other home services: No Patient Tobacco Use Status: Former Tobacco user Tobacco use type: Cigarette Years Smoked: 25 Second Hand Smoke Exposure: No service: No Current occupational status: retired Cognitive needs: No Hearing needs: No Vision needs: Yes (rx glasses) Questionnaire Thrive Questionnaire Date Thrive assessed: 11/01/24 AUDIT C Alcohol Use Questionnaire (AUDIT-C) 1. How often do you have a drink containing alcohol?: Never 3. How often do you have six or more drinks on one occasion?: Never Total Score: 0 TITA-7 AMB Questionnaire TITA-7 Date TITA - 7 assessed: 11/01/24 Source: Developed by Drs. Narciso Lilly, Marissa Pena, Cj Abreu and colleagues, with an educational akilah from [employer]. Review of Systems Const Details: - Neurological: Reports recurring head pain - Ophthalmologic: Denies vision changes - Otolaryngologic: Reports earwax buildup, denies hearing loss - Cardiovascular: Denies chest pain, reports good blood pressure control - Gastrointestinal: Denies nausea, vomiting, diarrhea - Musculoskeletal: Denies joint pain, reports previous hip and knee pain on the left side - Integumentary: Reports skin lesions on arms and nose, previously diagnosed as basal cell carcinoma All systems reviewed & are unremarkable except as noted in HPI and below Physical exam (Primary Care) Vital Signs: Last Vital Signs Temp 97.7 F 02/28/25 10:53 Pulse 92 02/28/25 10:53 Resp 16 02/28/25 10:53 BP 126/68 02/28/25 10:53 Pulse Ox 98 02/28/25 10:53 Oxygen Delivery Method Room Air 02/28/25 10:53 BMI result Body Mass Index 25.8 Tobacco/Smoking Status: Tobacco use Status Tobacco use date assessed 11/01/24 02/28/25 10:57 Patient Tobacco Use Status Former Tobacco user 02/28/25 10:57 Tobacco use type Cigarette 02/28/25 10:57 Thrive Assessment: Date of Thrive Assessment Date Thrive assessed 11/01/24 02/28/25 10:57 Const Other: General: +Alert and oriented, Well nourished, No acute distress. Eye: Pupils are equal, round and reactive to light, Intact accommodation, Extraocular movements are intact, Normal conjunctiva, Vision unchanged. HENT: Normocephalic, Atraumatic, Tympanic membranes are clear, Hearing affected due to ear wax buildup, Oral mucosa is moist, No pharyngeal erythema, Ear canals patent. Respiratory: Lungs CTA bilaterally, No wheeze, Respirations are non-labored. Cardiovascular: Regular rate, Regular rhythm, S1 auscultated, S2 auscultated, No murmur, Good pulses equal in all extremities, Normal peripheral perfusion, Swelling in both legs. Gastrointestinal: Soft, Non-tender, Non-distended, Normal bowel sounds, No organomegaly. Musculoskeletal: Normal range of motion, Normal strength, No tenderness, No swelling, No deformity, Normal gait. Integumentary: Warm, Dry, Penelope, Intact, Skin lesions present. Neurologic: Alert, Oriented, Normal sensory, Normal motor function, No focal defects, Cranial Nerves II-XII are grossly intact, Normal deep tendon reflexes. Psychiatric: Cooperative, Appropriate mood & affect, Normal judgment. Coding Level of Care Code Est Pt Level 4 (96988) Complex EM visit Add On G2211 Diagnoses Hypertension, unspecified type I10 Hypertension type: unspecified Paroxysmal atrial fibrillation I48.0 Intractable episodic headache, unspecified headache type R51.9 Headache type: unspecified Headache chronicity pattern: episodic headache Intractability: intractable Assessment & Plan Assessment & Plan (1) Hypertension: Comment: - Continued management with prescribed Amlodipine as blood pressure is controlled. - Regular monitoring advised. Code(s): I10 - Essential (primary) hypertension Category: Medical Qualifiers: Hypertension type: unspecified Qualified Code(s): I10 - Essential (primary) hypertension (2) Paroxysmal atrial fibrillation: Comment: - Continued use of Eliquis and Metoprolol for rate and thrombosis management. Code(s): I48.0 - Paroxysmal atrial fibrillation Category: Medical (3) Headache: Comment: - Ordered CT Head to investigate possible chronic headache causes (Given worsening frequency and symptoms) - Patient was advised on symptoms to monitor for progression. Code(s): R51.9 - Headache, unspecified Category: Medical Qualifiers: Headache type: unspecified Headache chronicity pattern: episodic headache Intractability: intractable Qualified Code(s): R51.9 - Headache, unspecified Plan: 4. Chronic Obstructive Pulmonary Disease (COPD): - Continue Hemoclininium inhaler. 5. Peripheral Edema: - Advise elevation of legs when sitting or lying down. 6. Basal Cell Carcinoma, Pre-cancerous Lesions: - Dermatological follow-up for skin lesions to assess potential recurrence. 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 I explained the plan to obtain a CT scan to rule out other causes and the likelihood of navigating insurance approvals. We reviewed continuation of her medications for hypertension and atrial fibrillation, both of which are currently well-regulated. I recommended maintaining current COPD management, stressing the improvement in symptoms without smoking. Regarding peripheral edema, I advised postural adjustments like leg elevation. I also stressed the importance of hearing impairment signs related to earwax accumulation. The patient was informed about dermatology follow-up for precancerous lesions, and our dermatological accommodations discussed. Follow-up was scheduled for three months to revisit these concerns. Orders: Orders Complete Blood Count Auto Diff Today I10 - Essential (primary) hypertension Comprehensive Met. Panel Today I10 - Essential (primary) hypertension Hemoglobin A1c Today I10 - Essential (primary) hypertension CT head/brain wo/w IV con Today R51.9 - Headache, unspecified Lipid Panel Today I10 - Essential (primary) hypertension TSH reflex Free T4 Today I10 - Essential (primary) hypertension Vitamin D 25-OH Total Today I10 - Essential (primary) hypertension Patient Instructions: - Continue taking your medications as prescribed. - Elevate your legs when resting to help reduce swelling. - Monitor symptoms like vision changes or weakness and report them. - Once insurance approves, get a CT scan as soon as they contact you. - Attend your dermatology and mammogram follow-ups. - Keep using your inhaler as directed for COPD. - Follow up in three months or sooner if new symptoms occur.
[2025-02-28 10:53] VITALS: BP 126/68; PULSE 92; RESP 16; TEMP 36.5; O2SAT 98; BMI 25.8
--- OUTSIDE RECORDS SUMMARY | 2025-02-28 12:20 | XMS_ITS | Patient Health Record ---
Author Organization [facility] Address [address] [place] [address] Care Team Providers Care Account Retention Representative Name Role Phone Justin (RETIRED) Genaro GRAMAJO Primary Care Provide r Jamal Easton Jr Unavailable [phone] Reason For Referral No Information Medications Medication [...] Problem Status W/U Status Risk Notes Problem 548784786 Colon cancer screening (Z12.11) Active confirmed Problem 20575982 Hypertension (I10) Active confirmed Problem 424784358 Long-term use of aspirin therapy (Z79.82) Active confirmed Plan Of Treatment Future Test Test Name Order Date COLONOSCOPY 06/02/2016 Insurance Providers Payer Name Payer Address Payer Phone Subscriber Number Group Number Insured Name Patient Relationship to Insured Coverage Start Date Coverage End Date MEDICARE OF [place] [address] [place] [address] [id number] SUNDEEP MCCORMACK Self - patient is the insured MEDEX ATTN CLAIMS [address] [place] [address] [id number] SUNDEEP MCCORMACK Self - patient is the insured Medical (General) History Medical History History ICD Code colonoscopy 03-21-2009 colon polyp spontaneoius Pneumothorax Denies [place],DM,CVA,Lung disease,renal dise ase breast cancer Surgical History Surgery Date(Month/Year) lumpectomy, right breast lung surgery due to a collapsed lung
== END 2025-02-28 14:05 | disposition home or self-care (01) ==
PROVIDERS: PCP Student in an Organized Health Care Education/Training Program; Visit Provider Student in an Organized Health Care Education/Training Program
DX: I10 Essential (primary) hypertension (principal); I48.0 Paroxysmal atrial fibrillation; R51.9 Headache, unspecified

== ENCOUNTER → 2025-02-28 10:45 | Outpatient (BNVA) | payer MEDICARE, SELFPAY | PROVIDERS: PCP Internal Medicine; Visit Provider Student in an Organized Health Care Education/Training Program | DX: R51.9 Headache, unspecified (principal); I10 Essential (primary) hypertension; I48.0 Paroxysmal atrial fibrillation; J44.9 Chronic obstructive pulmonary disease, unspecified; Z85.828 Personal history of other malignant neoplasm of skin; Z79.01 Long term (current) use of anticoagulants; Z79.899 Other long term (current) drug therapy | CPT/HCPCS: 99212 ==

== ENCOUNTER 2025-03-01 10:14 | Outpatient (REF) | payer MEDICARE, SELFPAY ==
[2025-03-01 10:48] LABS: MANUAL DIFF FLAG NO
[2025-03-01 10:59] LABS: Hematocrit 45.4 % (37.0-47.0); Hemoglobin 15.0 g/dl (12.0-16.0); Imm Gran Abs Auto 0.01 X10*3/uL (0.00-0.03); Imm Gran Pct Auto 0.2 % (0.0-0.4); Lymphocytes Absolute Auto 1.6 X10*3/uL (1.2-4.9); Mean Corpuscular HGB Conc 33.0 g/dl (31.0-35.0); Mean Corpuscular Hemoglobin 29.9 pg (27.0-33.0); Mean Corpuscular Volume 90.6 fL (80.0-98.0); NRBC Abs Auto 0.000 X10*3/uL (0.0-0.012); NRBC Pct Auto 0.0 /100WBC (0.0-0.2); Platelet Count 225 X10*3/uL (160-400); Red Blood Count 5.01 X10*6/uL (4.20-5.50); White Blood Count 5.4 X10*3/uL (4.8-10.8)
[2025-03-01 11:07] LABS: Hemoglobin A1C 149.1221 umol/L; Total Hemoglobin (HGBA1C) 3723.1051 umol/L
--- OUTSIDE RECORDS SUMMARY | 2025-03-01 11:10 | XMS_ITS | Patient Health Record ---
Author Organization [facility] Address [address] [place] [address] Care Team Providers Care Retail Cashier Associate Name Role Phone Justin (RETIRED) Genaro GRAMAJO Primary Care Provide r Jamal Easton Jr Unavailable [phone] Reason For Referral No Information Medications [...] Problem Status W/U Status Risk Notes Problem [id number] Colon cancer screening (Z12.11) Active confirmed Problem 94073039 Hypertension (I10) Active confirmed Problem 019314625 Long-term use of aspirin therapy (Z79.82) Active confirmed Plan Of Treatment Future Test Test Name Order Date COLONOSCOPY 06/02/2016 Insurance Providers Payer Name Payer Address Payer Phone Subscriber Number Group Number Insured Name Patient Relationship to Insured Coverage Start Date Coverage End Date MEDICARE OF [place] [address] [place] [address] [phone] [id number] SUNDEEP MCCORMACK Self - patient is the insured MEDEX ATTN CLAIMS [address] [place] [address] [id number] SUNDEEP MCCORMACK Self - patient is the insured Medical (General) History Medical History History ICD Code colonoscopy 03-21-2009 colon polyp spontaneoius Pneumothorax Denies [place],DM,CVA,Lung disease,renal dise ase breast cancer Surgical History Surgery Date(Month/Year) lumpectomy, right breast lung surgery due to a collapsed lung
[2025-03-01 11:40] LABS: Alanine Aminotransferase 12 U/L (0-31); Albumin Level 3.9 g/dL (3.5-5.0); Alkaline Phosphatase 56 U/L (39-117); Anion Gap 10 (12-20); Aspartate Amino Transferase 25 U/L (5-31); Blood Urea Nitrogen 18 mg/dL (9-16); Calcium 9.0 mg/dL (8.4-10.2); Carbon Dioxide 29 mmol/L (22-29); Chloride 108 mmol/L (96-108); Cholesterol 188 mg/dL (<200); Estimated Glomerular Filt Rate 49; HDL Cholesterol 64 mg/dL (>40); Potassium 4.6 mmol/L (3.3-5.1); Sodium 142 mmol/L (135-145); Total Protein 6.7 g/dL (6.5-8.0); Triglycerides 99 mg/dL (<150)
== END 2025-03-01 10:15 | disposition home or self-care (01) ==
LOC: HO.10HDL 10:14
PROVIDERS: Visit Provider Student in an Organized Health Care Education/Training Program
DX: Z13.1 Encounter for screening for diabetes mellitus (principal); I10 Essential (primary) hypertension
CPT/HCPCS: 36415; 80053; 80061; 82306; 83036; 84443; 85025

== ENCOUNTER 2025-04-01 09:01 | Outpatient (AMB) | payer MEDICARE, SELFPAY ==
--- NOTE | 2025-04-01 09:03 | MHC.OFFVIS ---
Vital Signs 04/01/25 09:07 Height 5 ft 7 in Weight 167 lb 1.766 oz BMI 26.2 BP 116/64 Blood Pressure Location Lt brachial Position Sitting Pulse 78 Pulse Source Pulse Oximeter Intake Visit Reasons: 4 mth f/up Intake Note: 4 mth f/up Assessment Nurse Practitioner Required: No Accompanied by: Self / Same As Patient Allergies No Known Allergies Allergy (Verified 02/28/25 10:49) Medication List - Last Reconciled 04/01/25 by Nathanael Abbott MD amlodipine 5 mg PO DAILY apixaban (Eliquis) 5 mg PO BID calcium carbonate-vitamin D3 500 mg-3.125 mcg (125 unit) 1 tab PO DAILY cholecalciferol (vitamin D3) 25 mcg PO DAILY diclofenac sodium 1% (Arthritis Pain (diclofenac)) 4 grams topical QID metoprolol succinate ER 50 mg PO DAILY umeclidinium-vilanterol 62.5-25 mcg/actuation (Anoro Ellipta) 1 inh inhalation DAILY HPI Comments Details: 79-year-old female with background history of paroxysmal atrial fibrillation, hypertension, COPD, history of invasive ductal carcinoma of the right breast and varicose veins who is here for follow-up. She had paroxysmal atrial fibrillation when she was being assessed by her primary care physician Dr. Anderson and was sent to the emergency department. She converted back to sinus rhythm and has been on metoprolol and Eliquis is then. She is denying any significant symptoms currently. She said she did not feel the atrial fibrillation. No chest discomfort. She had echocardiography and nuclear perfusion imaging which were both normal. Occasionally feels dizzy when she changes her posture. She does not drink adequate water during the day. We discussed about hydration. Taking Eliquis regularly. 04/01/25: She is here for follow-up. She did not have any symptoms with atrial fibrillation before and continues to be asymptomatic. Only complaint is occasional dizziness when she stands up. She has checked her heart rate and blood pressures at home and heart rate have fluctuated between 47 to 90s. She walked into the clinic today and heart rate was 70s after ambulation but she has a pulse ox in her back and her heart rate after resting was in high 40s to 50s. She is denying any current symptoms. [facility] Medical History (Reviewed 04/01/25 @ 09:08 by Kaylah Acosta [facility]) Headache Hypoxia Dyspnea Pulmonary nodules COPD (chronic obstructive pulmonary disease) Retinal tear Cataracts, bilateral Invasive ductal carcinoma of right breast, stage 1 Pulmonary embolism Surgical History History of colonoscopy (~07/22/17) History of repair of retinal tear by laser photocoagulation History of eye surgery History of lumpectomy of right breast (07/2010) Family History (Reviewed 04/01/25 @ 09:08 by Kaylah Acosta [facility]) Father Myocardial infarct Mother CHF (congestive heart failure) Paternal Aunt Lung cancer Maternal Uncle Lung cancer Maternal Aunt Lung cancer Son Colon cancer Family/Other Afib Social History (Reviewed 04/01/25 @ 09:08 by Kaylah Acosta [facility]) Household Members: None Housing: House Are you a primary long term care administrator to a significant other at home: No Do you presently have visiting nurse or other home services: No Patient Tobacco Use Status: Former Tobacco user Tobacco use type: Cigarette Years Smoked: 25 Second Hand Smoke Exposure: No service: No Current occupational status: retired Cognitive needs: No Hearing needs: No Vision needs: Yes (rx glasses) Review of Systems Const Denies chills, Denies fatigue, Denies fever(s), Denies frequent falls, Denies weakness, Denies weight gain and Denies weight loss ENT Denies dizziness Card Denies chest pain, Denies leg edema, Denies lightheadedness, Denies palpitations, Denies dyspnea and Denies dyspnea on exertion Resp Denies cough, Denies dyspnea and Denies dyspnea on exertion GI Denies hematochezia Musc Denies abnormal gait, Denies muscle weakness, Denies numbness, Denies radiating pain into limb and Denies tingling Neuro Denies abnormal gait, Denies dizziness, Denies frequent falls, Denies numbness, Denies tingling and Denies weakness Endo Denies fatigue and Denies palpitations Physical Exam Vital Signs: Last Vital Signs Pulse 78 04/01/25 09:07 BP 116/64 04/01/25 09:07 BMI result Body Mass Index 26.2 GENERAL APPEARANCE: in no acute distress, pleasant. NECK: no carotid bruit, no jugular venous distention. SKIN: no suspicious lesions, warm and dry. HEART: no murmurs, regular rate and rhythm. Bradycardic. LUNGS: Clear to auscultation bilaterally. ABDOMEN: soft, nontender. EXTREMITIES: no edema. PERIPHERAL PULSES: equal. NEUROLOGIC: No gross deficits, AAO X 3 Assessment & Plan Assessment & Plan (1) Atrial fibrillation: Code(s): I48.91 - Unspecified atrial fibrillation Category: Medical Qualifiers: Atrial fibrillation type: paroxysmal Qualified Code(s): I48.0 - Paroxysmal atrial fibrillation (2) Afib: Code(s): I48.91 - Unspecified atrial fibrillation Category: Medical Plan Pleasant 79-year-old female here for follow-up. She has background of COPD, hypertension and paroxysmal atrial fibrillation. She is currently on Eliquis for anticoagulation. Her heart rate has fluctuated between 50s to 90s. Overall it appears that her heart rate response to exercise and activity. She does not have any concerning symptoms currently. I have advised her to continue same medications for now. Blood pressure readings at home are high especially towards the evening hours but given her dizziness I am reluctant to increase her medications. We will do a 3 day Holter monitor on her to get data about her heart rate at home. If she has significant bradycardic episodes when she is awake then would consider cutting back on the metoprolol. Follow up with us in few months. Thank you for allowing me to participate in the care of your patient. Please feel free to contact me if you have any questions. Orders: Orders ECG 3 day holter monitor Today I48.91 - Unspecified atrial fibrillation Coding Level of Care Code Est Pt Level 4 (02437) Diagnoses Atrial fibrillation I48.0 Atrial fibrillation type: paroxysmal
[2025-04-01 09:07] VITALS: BP 116/64; PULSE 78; BMI 26.2
== END 2025-04-01 09:33 | disposition home or self-care (01) ==
LOC: HO.HCS 09:02
PROVIDERS: PCP Internal Medicine; Visit Provider Internal Medicine Cardiovascular Disease
DX: I48.0 Paroxysmal atrial fibrillation (principal); I48.91 Unspecified atrial fibrillation
CPT/HCPCS: 99214

== ENCOUNTER → 2025-04-01 09:01 | Outpatient (BNVA) | payer MEDICARE, SELFPAY | PROVIDERS: PCP Internal Medicine; Visit Provider Internal Medicine Cardiovascular Disease | DX: I48.0 Paroxysmal atrial fibrillation (principal) | CPT/HCPCS: 99212 ==

== ENCOUNTER → 2025-04-12 10:43 | Outpatient (REF) | payer MEDICARE, SELFPAY ==
--- NOTE | 2025-04-12 10:46 | HM_ITS ---
* Total monitoring time 3 days. * Underlying rhythm is sinus with an average rate of 73/Min. * Frequent ventricular ectopy with a burden of 25%. Rare couplets, triplets. Very brief runs, longest 4 beats. * Rare supraventricular ectopy. * No significant pauses or high-grade AV blocks. * No patient markers or diary events. MTDD
--- OUTSIDE RECORDS SUMMARY | 2025-04-12 13:10 | XMS_ITS | Patient Health Record ---
Author Organization [facility] Address [address] [place] [address] Care Team Providers Care Reptile Farmer Name Role Phone Justin (RETIRED) Genaro GRAMAJO Primary Care Provide r Jamal Easton Jr Unavailable Reason For Referral No Information Medications Medication SIG (Take, Route, Frequency, Duration) Notes Start Date End Date Status Colyte with Flavor Packs 240 GM As directed Orally Over the specified time.; Duration: 1 day(s) 06/02/2016 Active Aspir-81 81 MG 1 tablet Orally Once a day Active Anastrozole 1 MG 1 tablet Orally Once a day Active Immunizations Vaccine Route Administration Date Status Comme nts Flu vaccine no Preserv 3 and > Unknown 04/06/2016 Admin istered Problems Problem Type SNOMED Code ICD Code Onset Dates Problem Status W/U Status Risk Notes Problem Colon cancer screening (394168333) Colon cancer screening (Z12.11) Active confirmed Problem Hypertension (30129469) Hypertension (I10) Active confirmed Problem Long-term current use of antiplatelet drug (593208176542384 ) Long-term use of aspirin therapy (Z79.82) Active confirmed Plan Of Treatment Future Test Test Name Order Date COLONOSCOPY 06/02/2016 Insurance Providers Payer Name Payer Address Payer Phone Subscriber Number Group Number Insured Name Patient Relationship to Insured Coverage Start Date Coverage End Date MEDICARE OF [place] [address] [place] [address] [phone] [id number] SUNDEEP MCCORMACK Self - patient is the insured MEDEX ATTN CLAIMS [address] [place] [address] [phone] [id number] SUNDEEP MCCORMACK Self - patient is the insured Medical (General) History Medical History History ICD Code colonoscopy 03-21-2009 colon polyp spontaneoius Pneumothorax Denies [place],DM,CVA,Lung disease,renal dise ase breast cancer Surgical History Surgery Date(Month/Year) lumpectomy, right breast lung surgery due to a collapsed lung
== END ==
LOC: HO.CARD 10:43
PROVIDERS: PCP Student in an Organized Health Care Education/Training Program; Visit Provider Internal Medicine Cardiovascular Disease
DX: I48.91 Unspecified atrial fibrillation (principal)
CPT/HCPCS: 93242

== ENCOUNTER → 2025-04-12 10:46 | Outpatient (BNV) | payer MEDICARE, SELFPAY | PROVIDERS: PCP Student in an Organized Health Care Education/Training Program; Visit Provider Internal Medicine | DX: I49.3 Ventricular premature depolarization (principal); I49.49 Other premature depolarization | CPT/HCPCS: 93244 ==

== ENCOUNTER 2025-04-20 07:09 | Outpatient (REF) | payer MEDICARE, SELFPAY ==
--- NOTE | ~2025-04-20 | CT_ITS ---
CLINICAL HISTORY: R51.9 - Headache, unspecified CT Brain without contrast Comparison: None FINDINGS: Cortical sulci: There is diffuse prominence of the cortical sulci compatible with age-related atrophy. Ventricles: Normal for age Brain parenchyma: There is patchy lucency throughout the deep white matter indicating chronic microvascular leukomalacia. Extra axial spaces: Normal Posterior Fossa: Normal Extracranial soft tissues: Normal Additional abnormality: None IMPRESSION: Age-related atrophy with chronic microvascular leukomalacia. No hemorrhage, mass effect, or acute findings identified. This document has been electronically signed by: Rubio Roy MD on 04/22/2025 17:55:59
--- OUTSIDE RECORDS SUMMARY | 2025-04-20 07:12 | XMS_ITS | Patient Health Record ---
Author Organization [facility] Address [address] [place] [address] Care Team Providers Care Inorganic Chemistry Professor Name Role Phone Justin (RETIRED) Genaro GRAMAJO [...] Status Risk Notes Problem Colon cancer screening (880831265) Colon cancer screening (Z12.11) Active confirmed Problem Hypertension (49140888) Hypertension (I10) Active confirmed Problem Long-term current use of antiplatelet drug (316105326836109 ) Long-term use of aspirin therapy (Z79.82) Active confirmed Plan Of Treatment Future Test Test Name Order Date COLONOSCOPY 06/02/2016 Insurance Providers Payer Name Payer Address Payer Phone Subscriber Number Group Number Insured Name Patient Relationship to Insured Coverage Start Date Coverage End Date MEDICARE OF [place] [address] [place] [address] [phone] [id number] SUNDEEP MCCORMACK Self - patient is the insured MEDEX ATTN CLAIMS [address] [place] [address] [id number] SUNDEEP MCCORMACK Self - patient is the insured Medical (General) History Medical History History ICD Code colonoscopy 03-21-2009 colon polyp spontaneoius Pneumothorax Denies [place],DM,CVA,Lung disease,renal dise ase breast cancer Surgical History Surgery Date(Month/Year) lumpectomy, right breast lung surgery due to a collapsed lung
== END 2025-04-20 07:10 | disposition home or self-care (01) ==
LOC: HO.CT 07:09
PROVIDERS: PCP Student in an Organized Health Care Education/Training Program; Visit Provider Student in an Organized Health Care Education/Training Program
DX: R51.9 Headache, unspecified (principal)
CPT/HCPCS: 70450

== ENCOUNTER → 2025-04-20 07:11 | Outpatient (BNV) | payer MEDICARE, SELFPAY | PROVIDERS: PCP Student in an Organized Health Care Education/Training Program; Visit Provider Nuclear Medicine | DX: R51.9 Headache, unspecified (principal) | CPT/HCPCS: 70450 ==

== ENCOUNTER → 2025-05-06 08:46 | Outpatient (REF) | payer MEDICARE, SELFPAY ==
--- NOTE | 2025-05-06 09:03 | CA_ITS ---
Transthoracic Echocardiogram Patient (Last, First, Middle): Yareli Schneider R Gender: F Date of : 1945 Age: 79 Procedure Date: 05/06/2025 Procedure Type: Transthoracic Echocardiogram Location: OP Height: 167. cm Weight: 74.84 kg BSA: 1.84 m2 Heart Rate: 67 bpm BP: 135 / 80 mmHg Clinical Professor: DIPAK Vale MD: Nathanael Abbott MD Orthopedics Teacher: Bala Landrum MD Symptoms: I49.3 - Ventricular premature depolarization Study Quality: Adequate ECG Rhythm: normal sinus rhythm with frequent PVCs Conclusions: - 1. Normal LV ejection fraction of 65-70% with impaired relaxation filling pattern 2. Calcific aortic and mitral valve changes noted with normal cardiac valvular Dopplers 3. Upper limits of normal RV systolic pressure 4. Upper limits normal ascending aortic size 5. No gross pericardial effusion Findings Left Ventricle Normal left ventricular size, thickness, and systolic function. The visually estimated ejection fraction is between 65-70%. Spectral Doppler is indicative of an impaired relaxation filling pattern. E/E prime ratio is between 8 and 15 consistent with indeterminate filling pressures. Right Ventricle Normal right ventricular cavity size and systolic function. Atria The left atrium is likely dilated. There is lipomatous hypertrophy of the interatrial septum. There is no evidence of interatrial shunt. The right atrium is normal in size. Aortic Valve Normal aortic valve structure and function. There is mild calcification of the aortic valve. There is no aortic valve stenosis. There is no aortic valve regurgitation. Mitral Valve There is mild anterior and posterior mitral leaflet thickening. There is trace mitral valve regurgitation. There is no mitral valve stenosis. Pulmonic Valve The pulmonic valve is likely normal. Tricuspid Valve Normal tricuspid valve structure. There is mild tricuspid valve regurgitation. The right ventricular systolic pressure is 36 mmHg. Normal right atrial pressure. There is no evidence of pulmonary hypertension. Great Vessels The pulmonary artery was not well visualized. There is no dilatation of the ascending aorta measuring 3.50 cm. Venous The inferior vena cava is normal in size and collapses greater than 50% with inspiration. Pericardium/Pleural There is no evidence of pericardial effusion. Measurements 2D Linear Measurements IVSd: 0.76 0.6-0.9/0.6-1.0 cm LVIDd: 4.48 3.9-5.3/4.2-5.9 cm LVIDd Index: 2.43 2.4-3.2/2.2-3.1 cm/m2 LVIDs: 2.85 2.0-3.6 cm LVPWd: 0.80 0.7-1.1 cm LA Diam: 2.90 2.7-3.8/3.0-4.0 cm LAIDs Index: 1.58 1.5-2.3 cm/m2 LV Mass: 134.74 67-162/88-224 g LV Mass Index: 73.23 43-95/49-115 g/m2 LVOT Diam: 2.20 3.0+(-)1.3 cm 2D Systolic Function EF 4C: 67.70 >55% EF 2C: 66.20 >55% EF BiP: 66.50 >55% Mitral Valve MV Pk E: 0.90 MV PK A: 0.96 MV Decel Time: 241.00 E/A: 0.90 E'Lateral: 8.27 E'Medial: 5.77 E/E' Med: 15.50 E/E' Lat: 10.80 PHT: 70.00 MVA PHT: 3.14 Decel Churchill: 3.72 Aortic Valve AoV Pk Dominic: 1.27 AoV Mn Dominic: 0.85 AoV VTI: 0.28 AoV Pk Grad: 6.00 Aov Mn Grad: 3.00 PRASHANTH Cont.VTI: 3.42 LVOT LVOT Pk Dominic: 1.10 LVOT Mn Dominic: 0.74 LVOT VTI: 0.25 LVOT Pk Grad: 5.00 LVOT Mn Grad: 3.00 LVOT Diam: 2.20 LVOT Area: 3.80 Diastolic Function MV Pk E: 0.90 MV Pk A: 0.96 E/A: 0.90 E'Medial: 5.77 E/E' Med: 15.50 E' Laterial: 8.27 E/E' Lat: 10.80 Right Ventricle TAPSE (mm): 19.80 TVS' Dominic: 10.10 Tricuspid Valve TR Pk Dominic: 2.87 TR Pk Grad: 33.00 RA Press: 3.00 RVSP: 36.00 Great Vessels Aorta Sinus of Valsalva: 3.40 2.0-3.5 cm Ao Asc: 3.50 2.1-3.4 cm Ao Arch: 3.20 Pulmonary Veins Pulm Vein S/D 1.10 Pulmonary Valve PV Pk Dominic: 0.77 Peak PV Grad: 2.00 Updated in Other Vendor System with Status of Final Bala Landrum MD electronically signed on 05/07/2025 10:55:49 AM with status of Final
--- OUTSIDE RECORDS SUMMARY | 2025-05-06 09:10 | XMS_ITS | Patient Health Record ---
Author Organization [facility] Address [address] [place] [address] Care Team Providers Care Field Servicer Name Role Phone Justin (RETIRED) Genaro GRAMAJO [...] Status Risk Notes Problem Colon cancer screening (304984558) Colon cancer screening (Z12.11) Active confirmed Problem Hypertension (32061817) Hypertension (I10) Active confirmed Problem Long-term current use of antiplatelet drug (801685268784927 ) Long-term use of aspirin therapy (Z79.82) Active confirmed Plan Of Treatment Future Test Test Name Order Date COLONOSCOPY 06/02/2016 Insurance Providers Payer Name Payer Address Payer Phone Subscriber Number Group Number Insured Name Patient Relationship to Insured Coverage Start Date Coverage End Date MEDICARE OF [place] [address] [place] [address] [id number] SUNDEEP MCCORMACK Self - patient is the insured MEDEX ATTN CLAIMS [address] [place] [address] [id number] SUNDEEP MCCORMACK Self - patient is the insured Medical (General) History Medical History History ICD Code colonoscopy 03-21-2009 colon polyp spontaneoius Pneumothorax Denies PR,DM,CVA,Lung disease,renal dise ase breast cancer Surgical History Surgery Date(Month/Year) lumpectomy, right breast lung surgery due to a collapsed lung
== END ==
LOC: HO.CARD 08:46
PROVIDERS: PCP Student in an Organized Health Care Education/Training Program; Visit Provider Internal Medicine Cardiovascular Disease
DX: I49.3 Ventricular premature depolarization (principal)
CPT/HCPCS: 93306

== ENCOUNTER → 2025-05-06 09:03 | Outpatient (BNV) | payer MEDICARE, SELFPAY | PROVIDERS: PCP Student in an Organized Health Care Education/Training Program; Visit Provider Internal Medicine Cardiovascular Disease | DX: I34.81 Nonrheumatic mitral (valve) annulus calcification (principal); I35.8 Other nonrheumatic aortic valve disorders | CPT/HCPCS: 93306 ==

== ENCOUNTER 2025-05-30 09:45 | Outpatient (AMB) | payer MEDICARE, SELFPAY ==
--- NOTE | 2025-05-30 09:50 | A.OFFPC_ITS ---
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 Required: No Accompanied by: Self / Same As Patient Allergies No Known Allergies Allergy (Verified 05/30/25 09:50) Medication List - Last Reconciled 05/30/25 by Buster Maldonado MD amlodipine 5 mg PO DAILY apixaban (Eliquis) 5 mg PO BID calcium carbonate-vitamin D3 600 mg-25 mcg (1,000 unit) caps PO cholecalciferol (vitamin D3) 50 mcg PO DAILY metoprolol succinate ER 50 mg PO DAILY umeclidinium-vilanterol 62.5-25 mcg/actuation (Anoro Ellipta) 1 inh inhalation DAILY Tobacco use date assessed: 11/01/24 Fall risk assessment: No Falls in past year Last assessed Fall Risk: 05/30/25 Dental Screening Dental Screen Date: 11/01/24 HPI HPI Comments History of Present Illness Details History of Present Illness The patient is an 79 year old female presenting for follow-up and management of her chronic conditions and to discuss new issues. The patient reports a diagnosis of basal cell skin cancer on her nose, which is considered deep. She has a surgical removal and reconstructive procedure scheduled for October. A recent mammogram on January 31 revealed an abnormality in her right breast, and she is scheduled for a repeat scan in six months, in July. This is the same breast where she had cancer in 2017, which was diagnosed via biopsy after a period of serial six-month imaging follow-ups. She expresses anxiety about repeating a [id number] approach. Her chronic conditions are stable on her current medication regimen, which includes amlodipine 5 mg and metoprolol succinate 50 mg for hypertension, Eliquis 5 mg for atrial fibrillation, and hemoclinidium/norellipta for COPD. She has a stable history of chronic kidney disease stage 3P for the last 5-6 years and is also vitamin D deficient, for which she takes a supplement. The patient reports experiencing headaches every day, occurring 2-3 times a day and lasting from one to four minutes. A prior head CT scan was negative for any abnormalities. Medical History: - Basal cell carcinoma of the nose - Right breast cancer, diagnosed in 2017 - Hypertension - Atrial fibrillation - Chronic obstructive pulmonary disease (COPD) - Chronic kidney disease (CKD), stage 3P , stable for 5-6 years - Prediabetes - Vitamin D deficiency - Headaches Surgical History: - History of breast biopsy, which confir med cancer in 2017. Medications: - Amlodipine 5 mg for hypertension - Metoprolol succinate 50 mg for hyperte nsion - Eliquis 5 mg for atrial fibrillation - Hemoclinidium/Norellipta for COPD - Vitamin D 1000 IU for vitamin D defici ency Diagnostic Results: - Labs: Recent blood work showed normal blood counts and electrolytes. - Labs: Creatinine is 1.29. - Labs: HbA1c is 5.8%, consistent with p rediabetes. - Labs: Vitamin D level is 20 (previousl y 19.5). - Tests and diagnostics: A recent mammog homero on January 31 showed an abnormality in the right breast, requiring follow-up in 6 months. - Tests and diagnostics: A prior head CT was negative for intracranial pathology. Social History - Diet: Current diet includes breads, rbavo gars, and bakery items, which she has been advised to stop. - Living Situation: The patient is stayi locally for the winter and not traveling. - Stress: The patient reports feeling st ressed about her multiple medical diagnoses. Health Maintenance - Breast Cancer Screening: The patient h ad a recent mammogram and has a scheduled follow-up in 6 months due to an abnormal finding. - Diabetes Prevention: Discussed a new d iagnosis of prediabetes (A1c 5.8) and counseled the patient on dietary changes, including the need to stop eating breads, sugars, and bakery items. - Vitamin D Deficiency Management: Silvestre ayon's vitamin D level is 20; she is ta jeanette a supplement as prescribed by another provider. - Stress Management: Recommended practic ing relaxation, deep breathing, and maintaining a positive mindset to manage stress related to her health conditions. Patient was informed and verbally consented to the use of an ambient scribe for clinic note documentation during this visit. Vital signs reviewed. Comprehensive history, review of systems, and physical exam completed. Medications, allergies, and problem list reviewed and updated. Counseling provided on nutrition, regular exercise, sleep hygiene, and moderation of alcohol use. Discussed age-appropriate screenings (mammogram, colonoscopy, Pap, bone density) and immunizations (flu, COVID, shingles, Tdap). Screened for depression, fall risk, and home safety; no current concerns. Discussed stress management, dental and vision care, and importance of ongoing preventive follow-up. Routine labs ordered for metabolic and lipid screening. Patient educated on healthy lifestyle and agrees with the plan. [facility] Medical History (Updated 05/30/25 @ 10:22 by Buster Maldonado MD) Abnormal mammogram of right breast Basal cell carcinoma of nose Vitamin D deficiency CKD stage 3b, GFR 30-44 ml/min Prediabetes Hypertension Headache Hypoxia Dyspnea Pulmonary nodules COPD (chronic obstructive pulmonary disease) Retinal tear Cataracts, bilateral Invasive ductal carcinoma of right breast, stage 1 Pulmonary embolism Surgical History History of colonoscopy (~07/22/17) History of repair of retinal tear by laser photocoagulation History of eye surgery History of lumpectomy of right breast (07/2010) Family History Father Myocardial infarct Mother CHF (congestive heart failure) Paternal Aunt Lung cancer Maternal Uncle Lung cancer Maternal Aunt Lung cancer Son Colon cancer Family/Other Afib Social History Household Members: None Housing: House Are you a primary pulmonary care nurse to a significant other at home: No Do you presently have visiting nurse or other home services: No Patient Tobacco Use Status: Former Tobacco user Tobacco use type: Cigarette Years Smoked: 25 e-Cigarette/Vaping Use: Never Used Second Hand Smoke Exposure: No service: No Current occupational status: retired Cognitive needs: No Hearing needs: No Vision needs: Yes (rx glasses) Questionnaire Thrive Questionnaire Date Thrive assessed: 11/01/24 TITA-7 AMB Questionnaire TITA-7 Date TITA - 7 assessed: 11/01/24 Source: Developed by Drs. Narciso Lilly, Marissa Pena, Cj Abreu and colleagues, with an educational akilah from [employer]. Review of Systems Narrative Review of Systems - General: Reports feeling stressed by her medical conditions. - Skin: Reports a diagnosis of basal cell cancer on the nose. - HEENT: Reports daily headaches occurring 2-3 times per day, lasting from 1 to 4 minutes. - Lymphatic: Reports a palpable lump in the preauricular area. - Breast: Reports an abnormal finding on a recent right breast mammogram. All systems reviewed & are unremarkable except as reviewed in HPI and above Physical exam (Primary Care) Vital Signs: Last Vital Signs Temp 97.8 F 05/30/25 09:58 Pulse 37 L 05/30/25 09:58 Resp 18 05/30/25 09:58 BP 134/74 05/30/25 09:58 Pulse Ox 96 05/30/25 09:58 Oxygen Delivery Method Room Air 05/30/25 09:58 BMI result Body Mass Index 27.6 Tobacco/Smoking Status: Tobacco use Status Tobacco use date assessed 11/01/24 05/30/25 09:51 Patient Tobacco Use Status Former Tobacco user 05/30/25 09:51 Tobacco use type Cigarette 05/30/25 09:51 e-Cigarette/Vaping Use Never Used 05/30/25 09:51 Thrive Assessment: Date of Thrive Assessment Date Thrive assessed 11/01/24 05/30/25 09:51 Narrative Physical Exam General: +Alert and oriented, Well nourished, No acute distress. Eye: Pupils are equal, round and reactive to light, Intact accommodation, Extraocular movements are intact, Normal conjunctiva, Vision unchanged. HENT: Normocephalic, Atraumatic, Tympanic membranes are clear, Normal hearing, Oral mucosa is moist, No pharyngeal erythema, Ear canals patent. Respiratory: Lungs CTA bilaterally, No wheeze, Respirations are non-labored. Cardiovascular: Regular rate, Regular rhythm, S1 auscultated, S2 auscultated, No murmur, Good pulses equal in all extremities, Normal peripheral perfusion, No edema. Gastrointestinal: Soft, Non-tender, Non-distended, Normal bowel sounds, No organomegaly. Musculoskeletal: Normal range of motion, Normal strength, No tenderness, No s welling, No deformity, Normal gait. Integumentary: Warm, Dry, [place] Heart, Intact, Basal skin cancer on the nose. Neurologic: Alert, Oriented, Normal sensory, Normal motor function, No focal defects, Cranial Nerves II-XII are grossly intact, Normal deep tendon reflexes. Psychiatric: Cooperative, Appropriate mood & affect, Normal judgment. Coding Level of Care Code Est Pt Level 4 (46966) Complex visit Add On G2211 Diagnoses Permanent atrial fibrillation I48.21 Atrial fibrillation type: permanent Primary hypertension I10 Hypertension type: primary hypertension Prediabetes R73.03 Centrilobular emphysema J43.2 COPD type: emphysema Emphysema type: centrilobular CKD stage 3b, GFR 30-44 ml/min N18.32 Intractable episodic headache, unspecified headache type R51.9 Headache chronicity pattern: episodic headache Headache type: unspecified Intractability: intractable Vitamin D deficiency E55.9 Basal cell carcinoma of nose C44.311 Abnormal mammogram of right breast R92.8 Assessment & Plan Assessment & Plan (1) Afib: Comment: - Rate controlled on metoprolol succinate 50 mg daily and currently being managed on Eliquis 5 mg BID for anticoagulation Code(s): I48.91 - Unspecified atrial fibrillation Category: Medical Qualifiers: Atrial fibrillation type: permanent Qualified Code(s): I48.21 - Permanent atrial fibrillation (2) Hypertension: Comment: - Pressures well controlled on amlodipine 5mg Daily Code(s): I10 - Essential (primary) hypertension Category: Medical Qualifiers: Hypertension type: primary hypertension Qualified Code(s): I10 - Essential (primary) hypertension (3) Prediabetes: Comment: - A new diagnosis based on an A1c of 5.8. - The plan is to implement dietary changes, focusing on reducing intake of breads, sugars, and bakery items. Code(s): R73.03 - Prediabetes Category: Medical (4) COPD (chronic obstructive pulmonary disease): Comment: - Symptoms stable on Anoro Elipta Code(s): J44.9 - Chronic obstructive pulmonary disease, unspecified Category: Medical Qualifiers: COPD type: emphysema Emphysema type: centrilobular Qualified Code(s): J43.2 - Centrilobular emphysema (5) CKD stage 3b, GFR 30-44 ml/min: Comment: - Stable with most recent Creatinine at 1.2 - WIll continue to monitor Code(s): N18.32 - Chronic kidney disease, stage 3b Category: Medical (6) Headache: Comment: - The patient reports daily, brief headaches. - As a prior head CT was negative, these are possibly stress-related. - Plan is for the patient to keep a detailed headache diary to identify potential triggers. Code(s): R51.9 - Headache, unspecified Category: Medical Qualifiers: Headache chronicity pattern: episodic headache Headache type: unspecified Intractability: intractable Qualified Code(s): R51.9 - Headache, unspecified (7) Vitamin D deficiency: Comment: - The patient's level is 20. - She is already taking a supplement prescribed by another provider, so no changes will be made at this time. Code(s): E55.9 - Vitamin D deficiency, unspecified Category: Medical (8) Basal cell carcinoma of nose: Comment: - The patient has a planned surgical excision and reconstruction in October. - A palpable preauricular lymph node is noted, which may be reactive, and the plan is to monitor for any changes in size. Code(s): C44.311 - Basal cell carcinoma of skin of nose Category: Medical (9) Abnormal mammogram of right breast: Comment: - A recent mammogram was abnormal, with a follow-up scheduled in 6 months. - Given the patient's history of right breast cancer in 2016 and her anxiety about a waiting period, she was supported in her plan to advocate for a biopsy at her next appointment if she remains concerned. Code(s): R92.8 - Other abnormal and inconclusive findings on diagnostic imaging of breast Category: Medical Plan: Health Maintenance: - Breast Cancer Screening: The patient had a recent mammogram and has a scheduled follow-up in 6 months due to an abnormal finding. - Diabetes Prevention: Discussed a new diagnosis of prediabetes (A1c 5.8) and counseled the patient on dietary changes, including the need to stop eating breads, sugars, and bakery items. - Vitamin D Deficiency Management: Patient's vitamin D level is 20; she is taking a supplement as prescribed by another provider. - Stress Management: Recommended practicing relaxation, deep breathing, and maintaining a positive mindset to manage stress related to her health conditions. Patient was informed and verbally consented to the use of an ambient scribe for clinic note documentation during this visit. Plan I reviewed the patient's lab results with her, including the findings of prediabetes with an A1c of 5.8 and her stable chronic kidney disease. I emphasiz ed the importance of dietary changes, specifically avoiding breads, sugars, and bakery items, to manage her prediabetes, and she made a commitment to try. We discussed her upcoming surgery for basal cell carcinoma on her nose and the palpable preauricular lymph node, which I advised her to monitor for changes. We also addressed her anxiety regarding the 6-month follow-up for her abnormal mammogram, given her history of breast cancer, and I supported her plan to advocate for further testing if needed. Regarding her daily headaches, I reassured her that the prior head CT was negative and suggested the cause may be stress-related. I instructed her to keep a headache diary to identify triggers and to practice relaxation techniques. I confirmed that her chronic conditions (HTN, AFib, COPD) are stable and advised her to continue her current medications. I explained that for future refills, her pharmacy should contact our office directly. A follow-up visit was scheduled in four months. Medications: Changed From cholecalciferol (vitamin D3) 50 mcg PO DAILY To cholecalciferol (vitamin D3) 25 mcg PO DAILY 90 caps 0RF From apixaban (Eliquis) 5 mg PO BID 60 tabs 3RF To apixaban (Eliquis) 5 mg PO BID 180 tabs 3RF 90 days Patient Instructions: - To manage your prediabetes, you must change your diet. Stop eating breads, sugars, and bakery items. - Keep a diary for your headaches. Every time one happens, write down the time and what you were doing or what you ate recently. This will help us find triggers. - Continue taking all your current medications as prescribed for your blood pressure, heart rhythm, and COPD. - Keep an eye on the small lump you feel near your ear. Let us know if it gets any larger. - Practice relaxation techniques like deep breathing to help reduce stress, which may be worsening your headaches. - For medication refills, please ask your pharmacy to contact our office directly. - Please schedule a follow-up appointment with us in four months.
[2025-05-30 09:58] VITALS: BP 134/74; PULSE 37; RESP 18; TEMP 36.6; O2SAT 96; BMI 27.6
--- OUTSIDE RECORDS SUMMARY | 2025-05-30 11:17 | XMS_ITS | Patient Health Record ---
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 Name Role Phone Justin (RETIRED) Genaro GRAMAJO Primary Care Provide r Jamal Easton Jr Unavailable [phone] Reason For Referral No Information Medications Medication SIG (Take, Route, Frequency, Duration) Notes Start Date End Date Status Colyte with Flavor Packs 240 GM Solution Reconstituted As directed Orally Over the specified time.; Duration: 1 day(s) 06/02/2016 Active Aspir-81 81 MG Tablet Delayed Release 1 tablet Orally Once a day Active Anastrozole 1 MG Tablet 1 tablet Orally Once a day Active Immunizations Vaccine Route Administration Date Status Comme nts Flu vaccine no Preserv 3 and > Unknown 04/06/2016 Admin istered Social History Social History Additional Details Category Social Info Options Details Miscellaneous: Marital status: Occupation: retired Problems Problem Type SNOMED Code ICD Code Onset Dates Problem Status W/U Status Risk Notes Problem Colon cancer screening (669791397) Colon cancer screening (Z12.11) Active confirmed Problem Hypertension (24601297) Hypertension (I10) Active confirmed Problem Long-term current use of antiplatelet drug (138086739876915 ) Long-term use of aspirin therapy (Z79.82) Active confirmed Plan Of Treatment Future Test Test Name Order Date COLONOSCOPY 06/02/2016 Insurance Providers Payer Name Payer Address Payer Phone Subscriber Number Group Number Insured Name Patient Relationship to Insured Coverage Start Date Coverage End Date MEDICARE OF [place] [address] [place] [address] [phone] [id number] SUNDEEP MCCORMACK Self - patient is the insured MEDEX ATTN CLAIMS [address] [place] [address] [id number] SUNDEEP MCCORMACK Self - patient is the insured Medical (General) History Medical History History ICD Code colonoscopy 03-21-2009 colon polyp spontaneoius Pneumothorax Denies CO,DM,CVA,Lung disease,renal dise ase breast cancer Surgical History Surgery Date(Month/Year) lumpectomy, right breast lung surgery due to a collapsed lung
== END 2025-05-30 10:18 | disposition home or self-care (01) ==
PROVIDERS: PCP Student in an Organized Health Care Education/Training Program; Visit Provider Student in an Organized Health Care Education/Training Program
DX: I48.21 Permanent atrial fibrillation (principal); I10 Essential (primary) hypertension; R73.03 Prediabetes; J43.2 Centrilobular emphysema; N18.32 Chronic kidney disease, stage 3b; R51.9 Headache, unspecified; E55.9 Vitamin D deficiency, unspecified; C44.311 Basal cell carcinoma of skin of nose; R92.8 Other abnormal and inconclusive findings on diagnostic imaging of breast

== ENCOUNTER → 2025-05-30 09:45 | Outpatient (BNVA) | payer MEDICARE, SELFPAY | PROVIDERS: PCP Internal Medicine; Visit Provider Student in an Organized Health Care Education/Training Program | DX: I48.21 Permanent atrial fibrillation (principal); R73.03 Prediabetes; J43.2 Centrilobular emphysema; I10 Essential (primary) hypertension; N18.32 Chronic kidney disease, stage 3b; R51.9 Headache, unspecified; E55.9 Vitamin D deficiency, unspecified; C44.311 Basal cell carcinoma of skin of nose; R92.8 Other abnormal and inconclusive findings on diagnostic imaging of breast | CPT/HCPCS: 99212 ==